=== PATIENT | male | born 1980 | race Caucasian/White ===

== ENCOUNTER 2018-10-20 19:20 | Inpatient (IN) ==
[2018-10-20] MEDS ORDERED: 0.9 % Sodium Chloride 1,000 ML IVC ONE ×2 (19:57→21:34)
[2018-10-20] MEDS ORDERED: Isovue-370 500 ML BOTTLE IVP ONE (19:58)
[2018-10-20 20:12] LABS: Basophils % 0.5 %; Eosinophils # 0.1 K/mcL (0.0-0.6); Hematocrit 40.8 % (37.5-50.1); Hemoglobin 13.3 g/dL (12.9-16.9); Immature Granulocytes % 0.2 % (0-4); Lymphocytes # 1.2 K/mcL (0.6-4.6); Lymphocytes % 18.3 %; Mean Corpuscular HGB Conc 32.6 g/dL (31.6-35.5); Mean Corpuscular Hemoglobin 28.4 pg (28.0-33.3); Mean Corpuscular Volume 87.2 fL (83.0-100.0); Monocytes # 0.4 K/mcL (0.0-1.3); Monocytes % 5.7 %; Neutrophils # 4.8 K/mcL (1.6-8.9); Platelet Count 336 K/mcL (140-400); Red Blood Count 4.68 M/mcL (4.19-5.50); Red Cell Distribution Width 13.3 % (11.5-14.5); Segmented Neutrophils % 73.3 %
[2018-10-20 20:22] LABS: Alanine Aminotransferase 110 Units/L (7-52); Albumin 3.7 g/dL (3.5-5.7); Albumin/Globulin Ratio 0.9 (1.1-2.2); Alkaline Phosphatase 163 Units/L (34-104); Aspartate Amino Transferase 107 Units/L (13-39); BUN/Creatinine Ratio 27 (6-26); Bilirubin,Direct 0.1 mg/dL (0.0-0.2); Bilirubin,Indirect 0.4 mg/dL (0.0-1.2); Bilirubin,Total 0.5 mg/dL (0.3-1.0); Blood Urea Nitrogen 16 mg/dL (6-20); Calcium 9.2 mg/dL (8.6-10.3); Carbon Dioxide 28 mEq/L (23-29); Chloride 104 mEq/L (98-107); Globulin 4.3 g/dL (2.4-3.5); Glucose 110 mg/dL (70-105); Osmolality,Calculated 290 (280-300); Potassium 3.7 mEq/L (3.5-5.1); Sodium 139 mEq/L (136-145); eGFR For Non-African Americans > 60 (> 60)
[2018-10-20 20:25] LABS: INR 1.1; Prothrombin Time 12.5 Seconds (9.4-12.1)
--- NOTE | 2018-10-20 20:41 | Emergency Department Note ---
Disposition Clinical Impression: Cellulitis Qualifiers: Site of cellulitis: extremity Site of cellulitis of extremity: lower extremity Laterality: unspecified laterality Qualified Code(s): L03.119 - Cellulitis of unspecified part of limb Disposition: Admitted As Inpatient Condition: Good General Adult HPI - General Chief complaint: ED Wound/Laceration Stated complaint: Left arm pain Time Seen by Provider: 10/20/18 19:58 Source: patient Limitations: no limitations Nursing Notes Reviewed: Yes Vital Signs Reviewed: Yes - History of Present Illness HPI Narrative: Patient presenting today for evaluation of swelling erythema and concern for infection in the extremities. Patient has known meth user. Patient states he injects into his arms. Patient has been having continued burning. Patient states he waited to come to the hospital as he is been treated bad in the past. Patient states that overall he did start to experience fevers that started today. Subjective in nature. Patient has open wounds to both arms with underlying exposed tissue. The right arm does appear to be healing with only mild purulent drainage to several aspects of the medial aspect of the forearm. The right arm has more significant cellulitis with associated erythema to the entirety of the hand. Patient will undergo sepsis workup as well as CT of the left upper extremity to rule out underlying abscess. Vancomycin has been ordered. Patient has received fluids. Patient will require admission. Pain Scale: 8 - Related Data Home Medications Medication Instructions Recorded Confirmed Buprenorphine HCl/Naloxone HCl 1 each SL BID 02/23/17 10/20/18 [Suboxone 8 mg-2 mg Sl Film] Cyclobenzaprine [Flexeril] 10 mg PO TID PRN 10/20/18 10/20/18 Omeprazole [PriLOSEC] 20 mg PO DAILY 10/20/18 10/20/18 Sertraline [Zoloft] 25 mg PO DAILY 10/20/18 10/20/18 Allergies Allergy/AdvReac Type Severity Reaction Status Date / Time No Known Allergies Allergy Verified 10/20/18 19:29 All systems ED: reviewed and negative except as stated. Review of Systems: As Per HPI Constitutional: Reports: fever, chills. Denies: weakness ENT ED: Denies: congestion Cardiovascular: Denies: chest pain Respiratory: Denies: cough, dyspnea Gastrointestinal: Denies: abdominal pain, nausea, vomiting Genitourinary: Denies: urgency, dysuria Musculoskeletal: Denies: back pain, neck pain Integumentary: Reports: other Past Medical History - Past Medical History Medical history: Reports: other Surgical history: Reports: no surgical history Psychiatric history: Reports: no psych history - Social History Smoking Status: Current every day smoker Smokeless Tobacco Status: No Alcohol use: Reports: none Drug use: Reports: cocaine, opiates, marijuana, methamphetamine, IV Drug Use, prescription drug abuse, other Physical Exam General: Well appearing, nontoxic, no acute distress Head: Normocephalic Atraumatic Eyes: PERRL, EOMI ENT: Airway patent, no stridor Neck: supple, no meningismus Chest: Lungs clear to auscultation bilateral Cardiac: Regular rate and rhythm, no murmurs, rubs or gallops Abdomen: soft, nontender, nondistended; no guarding, rebound, or tenderness to percussion Musculoskeletal: Calves symmetric, nontender. Skin: Patient with open wounds to the bilateral forearms with associated cellulitis to left hand. Sensation is intact. Radial pulse +2 bilaterally. Neuro: Alert and Oriented to person, place, and time; No obvious focal deficit. - General Limitations: no limitations General appearance: alert Course - Reevaluation(s) Reevaluation #1: Patient requesting something for pain as well as nausea. Patient received Tylenol and Zofran. Patient is in no acute distress at this time. Patient understands treatment plan. All questions answered at bedside. - Consultations Consultation #1: Discussed with hospitalist. Pt accepted for admission. Vital Signs Temperature 98.4 F 10/20/18 19:31 Pulse Rate 95 10/20/18 19:31 Respiratory Rate 20 10/20/18 19:31 Blood Pressure 136/72 10/20/18 19:31 O2 Sat by Pulse Oximetry 98 10/20/18 19:31 Temperature 97.6 F 10/21/18 10:33 Pulse Rate 60 10/21/18 10:33 Respiratory Rate 15 10/21/18 10:33 Blood Pressure 126/77 10/21/18 10:33 O2 Sat by Pulse Oximetry 97 10/21/18 10:33 Oxygen Delivery Oxygen Delivery Room Air Medical Decision Making - Lab Data Result diagrams: 10/21/18 04:49 10/21/18 07:08 Lab Results 10/20/18 10/20/18 10/20/18 Range/Units 19:47 19:47 19:47 WBC 6.5 (4.3-11.1) K/mcL RBC 4.68 (4.19-5.50) M/mcL Hgb 13.3 (12.9-16.9) g/dL Hct 40.8 (37.5-50.1) % MCV 87.2 (83.0-100.0) fL MCH 28.4 (28.0-33.3) pg MCHC 32.6 (31.6-35.5) g/dL RDW 13.3 (11.5-14.5) % Plt Count 336 (140-400) K/mcL MPV 9.0 L (9.4-12.4) fL Immature Gran % 0.2 (0-4) % Seg Neutrophils % 73.3 % Lymphocytes % 18.3 % Monocytes % 5.7 % Eosinophils % 2.0 % Basophils % 0.5 % Neutrophils # 4.8 (1.6-8.9) K/mcL Lymphocytes # 1.2 (0.6-4.6) K/mcL Monocytes # 0.4 (0.0-1.3) K/mcL Eosinophils # 0.1 (0.0-0.6) K/mcL Basophils # 0.0 (0.0-0.2) K/mcL PT 12.5 H (9.4-12.1) Seconds INR 1.1 Sodium 139 (136-145) mEq/L Potassium 3.7 (3.5-5.1) mEq/L Chloride 104 (98-107) mEq/L Carbon Dioxide 28 (23-29) mEq/L BUN 16 (6-20) mg/dL Creatinine 0.60 L (0.70-1.30) mg/dL Est GFR ( Amer) > 60 (> 60) Est GFR (Non-Af Amer) > 60 (> 60) BUN/Creatinine Ratio 27 H (6-26) Glucose 110 H (70-105) mg/dL Calculated Osmolality 290 (280-300) Lactic Acid (0.5-2.2) mmol/L Calcium 9.2 (8.6-10.3) mg/dL Total Bilirubin 0.5 (0.3-1.0) mg/dL Direct Bilirubin 0.1 (0.0-0.2) mg/dL Indirect Bilirubin 0.4 (0.0-1.2) mg/dL AST 107 H (13-39) Units/L ALT 110 H (7-52) Units/L Alkaline Phosphatase 163 H (34-104) Units/L Serum Total Protein 8.0 (6.4-8.9) g/dL Albumin 3.7 (3.5-5.7) g/dL Globulin 4.3 H (2.4-3.5) g/dL Albumin/Globulin Ratio 0.9 L (1.1-2.2) Nasal Screen MRSA (PCR) (Negative) 10/20/18 10/21/18 10/21/18 Range/Units 19:47 04:49 07:08 WBC 4.9 (4.3-11.1) K/mcL RBC 3.74 L (4.19-5.50) M/mcL Hgb 10.5 L D (12.9-16.9) g/dL Hct 32.7 L (37.5-50.1) % MCV 87.4 (83.0-100.0) fL MCH 28.1 (28.0-33.3) pg MCHC 32.1 (31.6-35.5) g/dL RDW 13.6 (11.5-14.5) % Plt Count 245 (140-400) K/mcL MPV 9.9 (9.4-12.4) fL Immature Gran % (0-4) % Seg Neutrophils % % Lymphocytes % % Monocytes % % Eosinophils % % Basophils % % Neutrophils # (1.6-8.9) K/mcL Lymphocytes # (0.6-4.6) K/mcL Monocytes # (0.0-1.3) K/mcL Eosinophils # (0.0-0.6) K/mcL Basophils # (0.0-0.2) K/mcL PT (9.4-12.1) Seconds INR Sodium 138 (136-145) mEq/L Potassium 3.5 (3.5-5.1) mEq/L Chloride 109 H (98-107) mEq/L Carbon Dioxide 25 (23-29) mEq/L BUN 14 (6-20) mg/dL Creatinine 0.53 L (0.70-1.30) mg/dL Est GFR ( Amer) > 60 (> 60) Est GFR (Non-Af Amer) > 60 (> 60) BUN/Creatinine Ratio 26 (6-26) Glucose 109 H (70-105) mg/dL Calculated Osmolality 287 (280-300) Lactic Acid 1.3 (0.5-2.2) mmol/L Calcium 8.2 L (8.6-10.3) mg/dL Total Bilirubin 0.6 (0.3-1.0) mg/dL Direct Bilirubin (0.0-0.2) mg/dL Indirect Bilirubin (0.0-1.2) mg/dL AST 74 H (13-39) Units/L ALT 76 H (7-52) Units/L Alkaline Phosphatase 113 H (34-104) Units/L Serum Total Protein 5.9 L (6.4-8.9) g/dL Albumin 2.7 L (3.5-5.7) g/dL Globulin 3.2 (2.4-3.5) g/dL Albumin/Globulin Ratio 0.8 L (1.1-2.2) Nasal Screen MRSA (PCR) (Negative) 10/21/18 Range/Units 11:10 WBC (4.3-11.1) K/mcL RBC (4.19-5.50) M/mcL Hgb (12.9-16.9) g/dL Hct (37.5-50.1) % MCV (83.0-100.0) fL MCH (28.0-33.3) pg MCHC (31.6-35.5) g/dL RDW (11.5-14.5) % Plt Count (140-400) K/mcL MPV (9.4-12.4) fL Immature Gran % (0-4) % Seg Neutrophils % % Lymphocytes % % Monocytes % % Eosinophils % % Basophils % % Neutrophils # (1.6-8.9) K/mcL Lymphocytes # (0.6-4.6) K/mcL Monocytes # (0.0-1.3) K/mcL Eosinophils # (0.0-0.6) K/mcL Basophils # (0.0-0.2) K/mcL PT (9.4-12.1) Seconds INR Sodium (136-145) mEq/L Potassium (3.5-5.1) mEq/L Chloride (98-107) mEq/L Carbon Dioxide (23-29) mEq/L BUN (6-20) mg/dL Creatinine (0.70-1.30) mg/dL Est GFR ( Amer) (> 60) Est GFR (Non-Af Amer) (> 60) BUN/Creatinine Ratio (6-26) Glucose (70-105) mg/dL Calculated Osmolality (280-300) Lactic Acid (0.5-2.2) mmol/L Calcium (8.6-10.3) mg/dL Total Bilirubin (0.3-1.0) mg/dL Direct Bilirubin (0.0-0.2) mg/dL Indirect Bilirubin (0.0-1.2) mg/dL AST (13-39) Units/L ALT (7-52) Units/L Alkaline Phosphatase (34-104) Units/L Serum Total Protein (6.4-8.9) g/dL Albumin (3.5-5.7) g/dL Globulin (2.4-3.5) g/dL Albumin/Globulin Ratio (1.1-2.2) Nasal Screen MRSA (PCR) Positive A (Negative)
[2018-10-20] MEDS ORDERED: Piperacillin/Tazobactam 3.375 GM in 0.9 % Sodium Chloride Mini Bag 100 ML IVPB ONE (21:17)
[2018-10-20] MEDS ORDERED: Ondansetron 4 MG/2 ML VIAL IVP STA (21:34)
[2018-10-20] MEDS ORDERED: Acetaminophen 325 MG TABLET PO STA (21:34)
[2018-10-21] MEDS ORDERED: Ondansetron 4 MG/2 ML VIAL IVP PRN (04:49)
[2018-10-21] MEDS ORDERED: Naloxone 0.4 MG/ML INJ IVP PRN (04:49)
--- NOTE | 2018-10-21 04:59 | Internal Med History&Physical ---
Date of Encounter: 10/21/18 Time of Encounter: 04:30 Internal Medicine - H&P: HPI Chief complaint: Left arm cellulitis Admitted From: Emergency Dept Plans for Post Hospital Care: Home History of present illness: Mr. Alvares is a 38 year old male Patient presented to the ER with swelling of his left arm. He has a long history of meth use, injecting into his arms a few weeks ago. He states that he has had burning pain in the arms since then, left worse than right. He says then his left arm became red, spreading down to his fingers. Swelling started to really worsen yesterday. Ulcerations formed, and have been draining yellow purulent discharge. He states that he has not had this before. He came to the ER after he started having feverish sensation at home. In the ER patient's vital signs were within normal limits. He was afebrile. CBC and BMP were also normal. Lactic acid was 1.3. He did have elevated liver enz ymes, AST 107, ALT 110 and Alk phos of 163. Bilirubin and INR however were witin normal limits. An upper extremity CT was ordered with contrast that showed: 1. Diffuse subcutaneous edema with areas of shallow soft tissue ulceration in the forearm, compatible with reported cellulitis. 2. No soft tissue gas. No evidence of abscess. 3. No acute osseous abnormality or evidence of osteomyelitis. He was given 2L normal saline, tylenol for pain. Blood cultures were drawn and he was started on zosyn and vancomycin. He was sent to the medical floor for further management. Upon my evaluation, patient is resting comfortably in the hospital bed in no acute distress. He denies chest pain, abdominal pain, shortness of breath, nausea, vomiting, diarrhea and constipation. He denies picking at the wounds on his arms. He says that he only recently injected methamphetamine, denies injecting into other areas of his body. He denies contributing family history, his father has a history of epilepsy, and his mother is blind. He states that besides his drug use, he is in in good health. He is a full code. Past Med Surg Social Fam HX - Past Medical History Medical history: other Additional medical history: MRSA on right leg. substance abuse Psychiatric history: depression - Past Surgical History Surgical History: no surgical history - Social History Smoking Status: Current every day smoker Packs per day: 1 Smokeless Tobacco Status: No Alcohol use: none Drug use: cocaine, opiates, marijuana, methamphetamine, IV Drug Use, prescription drug abuse, other Internal Medicine - H&P: Meds Buprenorphine HCl/Naloxone HCl [Suboxone 8 mg-2 mg Sl Film] 1 each SL BID 02/23/17 [History] Cyclobenzaprine [Flexeril] 10 mg PO TID PRN 10/20/18 [History] Omeprazole [PriLOSEC] 20 mg PO DAILY 10/20/18 [History] Sertraline [Zoloft] 25 mg PO DAILY 10/20/18 [History] Allergy/AdvReac Type Severity Reaction Status Date / Time No Known Allergies Allergy Verified 10/20/18 19:29 All Systems PM: A 10-system review of systems was performed and is negative for pertinent findings except as documented above in the HPI. - Constitutional Vitals: Temp Pulse Resp BP Pulse Ox 97.8 F 58 16 119/70 97 10/21/18 03:59 10/21/18 03:59 10/21/18 03:59 10/21/18 03:59 10/21/18 03:59 General appearance: Present: cooperative, A&O X 3, pleasant, no acute distress, answers questions appropriately Exam: - - Head Head exam: Present: normal inspection Additional comments: 2 facial wounds, no erythema, no discharge - Eye Eye exam: Present: EOMI, normal appearance - Respiratory Respiratory exam: Present: CTAB. Absent: rales, respiratory distress, rhonchi, wheezes - Cardiovascular Cardiovascular exam: Present: RRR. Absent: diastolic murmur, systolic murmur - GI/Abdominal GI/Abdominal exam: Present: normal bowel sounds, soft. Absent: tenderness - Extremities Exam Extremities exam: Present: tenderness, warm, radial pulses palpable and symmetrical. Absent: pedal edema Additional comments: Left arm has 3 wounds in mid forearm with surrounding erythema. 2 wounds 2-3cm in size, with ulceration. smaller wound more shallow. Thumb of left had has deep crack at metacarpophalangeal joint. Hand is red, pulses and sensation intact. Right arm has 3 wounds in mid forearm without surrounding erythema. Scab formation overlying wounds. - Neurological Exam Neurological exam: Present: no focal deficits, strengths equal and symetr throughout. Absent: motor sensory deficit, facial droop, speech deficit - Skin Skin exam: Present: dry, erythema, warm. Absent: intact, normal color Internal Med - H&P Results - Labs CBC & Chem 7: 10/20/18 19:47 10/20/18 19:47 Labs: Short CBC 10/20/18 Range/Units 19:47 WBC 6.5 (4.3-11.1) K/mcL Hgb 13.3 (12.9-16.9) g/dL Hct 40.8 (37.5-50.1) % Plt Count 336 (140-400) K/mcL Neutrophils # 4.8 (1.6-8.9) K/mcL BMP 10/20/18 19:47 Sodium 139 Potassium 3.7 Chloride 104 Carbon Dioxide 28 BUN 16 Creatinine 0.60 L Glucose 110 H Calcium 9.2 Liver Function 10/20/18 Range/Units 19:47 Total Bilirubin 0.5 (0.3-1.0) mg/dL Direct Bilirubin 0.1 (0.0-0.2) mg/dL AST 107 H (13-39) Units/L ALT 110 H (7-52) Units/L Alkaline Phosphatase 163 H (34-104) Units/L Albumin 3.7 (3.5-5.7) g/dL - Impressions ITS Impressions Upper Extremity CT 10/20/18 19:58 IMPRESSION: 1. Diffuse subcutaneous edema with areas of shallow soft tissue ulceration in the forearm, compatible with reported cellulitis. 2. No soft tissue gas. No evidence of abscess. 3. No acute osseous abnormality or evidence of osteomyelitis. D/ / 10/20/2018 21:17:46 Noy Murillo / rolan Interpreting Provider: Noy Murillo - Assessment and Plan (1) Cellulitis of left arm Current Visit: Yes Status: Acute Assessment and plan: As seen on left arm CT. Obvious ulcerations and redness of the mid arm. Patient's pulses and sensation is intact, but concern for development of compartment syndrome. Patient already started on antibiotics in the ER. No sign of osteo or gas formation on imaging. Continue vancomycin and zosyn Follow up blood cultures Wound care consultation Consider orthopedic surgery consult if concern for compartment syndrome (2) IV drug user Current Visit: Yes Status: Acute Assessment and plan: History of meth use. Caution use of narcotic pain medication. Patient ok with tylenol thus far. (3) Current nicotine use Current Visit: Yes Status: Acute Assessment and plan: Nicotine patch (4) Elevated liver enzymes Current Visit: Yes Status: Acute Assessment and plan: Unknown etiology, other liver enzymes not elevated. Repeat labs in the morning Consider hepatic panel if continues to be elevated (5) DVT prophylaxis Current Visit: Yes Status: Acute Assessment and plan: SCDs - Time Spent With Patient Total time spent is greater than 50% in coordination of care (as documented) at patient's floor/unit and/or counseling patient: Greater than 35 minutes
[2018-10-21] MEDS: 0.9 % Sodium Chloride 1,000 ML IVC SCH ×2 (05:02→16:39)
[2018-10-21] MEDS: Acetaminophen 325 MG TABLET PO PRN ×2 (05:03→20:22)
[2018-10-21 07:55] LABS: Hematocrit 32.7 % (37.5-50.1); Mean Corpuscular HGB Conc 32.1 g/dL (31.6-35.5); Mean Corpuscular Hemoglobin 28.1 pg (28.0-33.3); Mean Corpuscular Volume 87.4 fL (83.0-100.0); Mean Platelet Volume 9.9 fL (9.4-12.4); Platelet Count 245 K/mcL (140-400); Red Blood Count 3.74 M/mcL (4.19-5.50); Red Cell Distribution Width 13.6 % (11.5-14.5)
[2018-10-21 07:57] LABS: Hemoglobin 10.5 g/dL (12.9-16.9)
[2018-10-21 08:06] LABS: Alanine Aminotransferase 76 Units/L (7-52); Albumin 2.7 g/dL (3.5-5.7); Albumin/Globulin Ratio 0.8 (1.1-2.2); Alkaline Phosphatase 113 Units/L (34-104); Aspartate Amino Transferase 74 Units/L (13-39); BUN/Creatinine Ratio 26 (6-26); Bilirubin,Total 0.6 mg/dL (0.3-1.0); Blood Urea Nitrogen 14 mg/dL (6-20); Calcium 8.2 mg/dL (8.6-10.3); Carbon Dioxide 25 mEq/L (23-29); Chloride 109 mEq/L (98-107); Globulin 3.2 g/dL (2.4-3.5); Glucose 109 mg/dL (70-105); Osmolality,Calculated 287 (280-300); Potassium 3.5 mEq/L (3.5-5.1); Sodium 138 mEq/L (136-145); Total Protein 5.9 g/dL (6.4-8.9); eGFR For Non-African Americans > 60 (> 60)
[2018-10-21] MEDS ORDERED: Ibuprofen 400 MG TABLET PO PRN (08:10)
[2018-10-21] MEDS: Piperacillin/Tazobactam 3.375 GM in 0.9 % Sodium Chloride Mini Bag 100 ML IVPB SCH ×3 (08:18→23:07)
[2018-10-21] MEDS: Nicotine 21 MG PATCH.TD24 TD SCH (08:19)
--- NOTE | 2018-10-21 08:52 | Internal Med Progress Note ---
Hospitalist Progress Note - Encounter Date of Encounter: 10/21/18 Time of Encounter: 08:52 - Subjective Interval History: Reason seen and examined this morning at bedside. No acute overnight events. Remains afebrile. Denies significant change in pain in the left forearm. Denies any lightheadedness dizziness abdominal pain nausea vomiting and diarrhe a. - Exam Vitals: Temp Pulse Resp BP Pulse Ox 98.2 F 65 15 110/65 96 10/21/18 06:30 10/21/18 06:30 10/21/18 06:30 10/21/18 06:30 10/21/18 06:30 Exam: General: In no acute distress. Obese Respiratory exam: CTAB. no accessory muscle use, rales, rhonchi, wheezes Cardiovascular exam: RRR, +S1, +S2. no murmur, gallop, rubs. GI/Abdominal exam: Non-tender, Non-distended, normal bowel sounds, soft, no peritoneal signs. Extremities exam: no pedal edema, pulses palpable in b/l lower extremities. no calf tenderness Neurological exam: CN II-XII intact, AO X3, no focal deficits. Skin exam: Lt forearm 2 open wound, 1x2 cm nondraining without fluctuance, with erythema and tenderness. swelling also present on hand but intact sensation and normal capillary refill. able to move hand. Rt forearm with also scabs which does not appear infected. - Summary of Assessment and Plan Summary of Assessment and Plan: Assessment Cellulitis of left arm IVDU methamphetamine Elevated liver enzymes Nicotine use Plan - CT without abscess or ostomyelitis. - c/w empiric vancomycin and zosyn. f/u blood cultures - f/u wound care - Neurovascular intact. low suspicion of compartment syndrome. elevate hand. If worsens will call surgery. - f/u hepatitis panel - add ibuprofen for pain - nicotin patch - Time Spent with Patient Total time spent is greater than 50% in coordination of care (as documented) at patient's floor/unit and/or counseling patient: Internal Medicine: Result - Labs CBC & Chem 7: 10/21/18 04:49 10/21/18 07:08 Labs: Short CBC 10/20/18 10/21/18 Range/Units 19:47 04:49 WBC 6.5 4.9 (4.3-11.1) K/mcL Hgb 13.3 10.5 L D (12.9-16.9) g/dL Hct 40.8 32.7 L (37.5-50.1) % Plt Count 336 245 (140-400) K/mcL Neutrophils # 4.8 (1.6-8.9) K/mcL BMP 10/20/18 10/21/18 19:47 07:08 Sodium 139 138 Potassium 3.7 3.5 Chloride 104 109 H Carbon Dioxide 28 25 BUN 16 14 Creatinine 0.60 L 0.53 L Glucose 110 H 109 H Calcium 9.2 8.2 L Liver Function 10/20/18 10/21/18 Range/Units 19:47 07:08 Total Bilirubin 0.5 0.6 (0.3-1.0) mg/dL Direct Bilirubin 0.1 (0.0-0.2) mg/dL AST 107 H 74 H (13-39) Units/L ALT 110 H 76 H (7-52) Units/L Alkaline Phosphatase 163 H 113 H (34-104) Units/L Albumin 3.7 2.7 L (3.5-5.7) g/dL - ABG Interpretation ABG results: PT/INR, D-dimer PT 12.5 Seconds (9.4-12.1) H 10/20/18 19:47 - Impressions Impressions Upper Extremity CT 10/20/18 19:58 IMPRESSION: 1. Diffuse subcutaneous edema with areas of shallow soft tissue ulceration in the forearm, compatible with reported cellulitis. 2. No soft tissue gas. No evidence of abscess. 3. No acute osseous abnormality or evidence of osteomyelitis. D/ / 10/20/2018 21:17:46 Noy Murillo / rolan Interpreting Provider: Noy Murillo Consult Discharge Plan - Plan Referrals: Jennifer Bob [Primary Care Provider] -
[2018-10-21] MEDS: Ibuprofen 400 MG TABLET PO SCH ×3 (11:08→23:07)
--- NOTE | 2018-10-21 11:15 | Electrocardiograph Report ---
[address] [address] Test Date: 2018-10-20 Pat Name: Raulito Alvares Department: [id number] Room: 3A Gender: M [employer]: : [id number] Requested By: Mu Dove Order Number: [id number] Reading MD: Sulma Arthur Measurements Intervals [place] Rate: 81 P: 59 IN: 145 QRS: 53 QRSD: 90 T: 30 QT: 376 QTc: 437 Interpretive Statements Sinus rhythm Electronically Signed On 10-21-2018 11:13:29 EDT by Sulma Arthur
[2018-10-21 19:07] LABS: Amphetamine Screen,Urine Positive ng/mL (Cutoff=1000); Barbiturate Screen,Urine Negative ng/mL (Cutoff=200); Benzodiazepines Screen,Urine Negative ng/mL (Cutoff=200); Cannabinoid Screen,Urine Negative ng/mL (Cutoff = 50); Cocaine Screen,Urine Negative ng/mL (Cutoff= 300); Opiate Screen,Urine Positive ng/mL (Cutoff=300); Phencyclidine Screen,Urine Negative ng/mL (Cutoff=25)
[2018-10-22 03:56] LABS: Basophils % 0.5 %; Eosinophils # 0.3 K/mcL (0.0-0.6); Eosinophils % 4.3 %; Hematocrit 35.7 % (37.5-50.1); Hemoglobin 11.9 g/dL (12.9-16.9); Immature Granulocytes % 0.2 % (0-4); Lymphocytes # 2.1 K/mcL (0.6-4.6); Lymphocytes % 36.6 %; Mean Corpuscular HGB Conc 33.3 g/dL (31.6-35.5); Mean Corpuscular Hemoglobin 28.6 pg (28.0-33.3); Mean Corpuscular Volume 85.8 fL (83.0-100.0); Mean Platelet Volume 10.1 fL (9.4-12.4); Monocytes # 0.5 K/mcL (0.0-1.3); Monocytes % 8.9 %; Neutrophils # 2.9 K/mcL (1.6-8.9); Platelet Count 250 K/mcL (140-400); Red Blood Count 4.16 M/mcL (4.19-5.50); Red Cell Distribution Width 13.1 % (11.5-14.5); Segmented Neutrophils % 49.5 %
[2018-10-22 04:12] LABS: Alanine Aminotransferase 77 Units/L (7-52); Albumin 2.7 g/dL (3.5-5.7); Albumin/Globulin Ratio 0.8 (1.1-2.2); Alkaline Phosphatase 115 Units/L (34-104); Aspartate Amino Transferase 75 Units/L (13-39); BUN/Creatinine Ratio 24 (6-26); Bilirubin,Total 0.4 mg/dL (0.3-1.0); Blood Urea Nitrogen 13 mg/dL (6-20); Calcium 8.4 mg/dL (8.6-10.3); Carbon Dioxide 23 mEq/L (23-29); Chloride 107 mEq/L (98-107); Globulin 3.6 g/dL (2.4-3.5); Glucose 103 mg/dL (70-105); Osmolality,Calculated 282 (280-300); Potassium 4.1 mEq/L (3.5-5.1); Sodium 136 mEq/L (136-145); Total Protein 6.3 g/dL (6.4-8.9); eGFR For Non-African Americans > 60 (> 60)
[2018-10-22 04:34] LABS: Hepatitis B Surface Antigen Nonreactive (Nonreactive)
[2018-10-22] MEDS: Ibuprofen 400 MG TABLET PO SCH ×4 (05:00→23:53)
[2018-10-22 05:03] LABS: Hepatitis B Core IgM Nonreactive (Nonreactive)
[2018-10-22 06:23] LABS: Hepatitis A Antibody IgM Reactive (Nonreactive); Hepatitis C Virus Antibody Reactive (Nonreactive)
[2018-10-22] MEDS ORDERED: *HR* Buprenorphine HCl 2 MG SUBLINGUAL TABLET SL SCH ×2 (10:00→21:00)
[2018-10-22] MEDS: Nicotine 21 MG PATCH.TD24 TD SCH (10:02)
[2018-10-22] MEDS: Acetaminophen 325 MG TABLET PO PRN (10:02)
[2018-10-22] MEDS: Piperacillin/Tazobactam 3.375 GM in 0.9 % Sodium Chloride Mini Bag 100 ML IVPB SCH ×2 (10:02→16:50)
--- NOTE | 2018-10-22 11:01 | Internal Med Progress Note ---
Hospitalist Progress Note - Encounter Date of Encounter: 10/22/18 Time of Encounter: 08:26 - Subjective Interval History: Patient seen and examined this morning at bedside. No acute overnight events. Hand swelling and redness improved. Pain improved as well her started with some pain on movement of his thumb. Denies any fevers chills nausea vomiting or diarrhea. Afebrile overnight and hemodynamically stable. - Exam Vitals: Temp Pulse Resp BP Pulse Ox 97.5 F L 60 15 159/90 97 10/22/18 10:16 10/22/18 10:16 10/22/18 10:16 10/22/18 10:16 10/22/18 10:16 Exam: General: In no acute distress. Obese Respiratory exam: CTAB. no accessory muscle use, rales, rhonchi, wheezes Cardiovascular exam: RRR, +S1, +S2. no murmur, gallop, rubs. GI/Abdominal exam: Non-tender, Non-distended, normal bowel sounds, soft, no peritoneal signs. Extremities exam: no pedal edema, pulses palpable in b/l lower extremities. no calf tenderness Neurological exam: CN II-XII intact, AO X3, no focal deficits. Skin exam: Lt forearm 2 open wound, 1x2 cm nondraining without fluctuance, with erythema and tenderness. swelling slightly decreased. intact sensation and normal capillary refill. Rt forearm with also scabs which does not appear infected. Track ley noted on left hand dorsum. - Summary of Assessment and Plan Summary of Assessment and Plan: Assessment Cellulitis of left arm active IVDU methamphetamine and heroin Acute Hepatitis A Hepatitis C Nicotine use MRSA screen positive Plan - CT of Lt arm without abscess or ostomyelitis. - c/w empiric vancomycin and zosyn. f/u blood cultures. NGTD - f/u wound care. Apply betadine dressing for now - Neurovascular intact. low suspicion of compartment syndrome. elevate hand. If worsening will call surgery. - hepatitis panel with hepatitis A and Hepatitis C. Known h/o hepatitis C. f/u RNA levels and HIV - c/w ibuprofen and acetaminophen for pain. Reusme subutex. - nicotin patch - Time Spent with Patient Total time spent is greater than 50% in coordination of care (as documented) at patient's floor/unit and/or counseling patient: Internal Medicine: Result - Labs CBC & Chem 7: 05/05/19 03:27 10/22/18 03:27 Labs: Short CBC 10/22/18 Range/Units 03:27 WBC 5.8 (4.3-11.1) K/mcL Hgb 11.9 L (12.9-16.9) g/dL Hct 35.7 L (37.5-50.1) % Plt Count 250 (140-400) K/mcL Neutrophils # 2.9 (1.6-8.9) K/mcL BMP 10/22/18 03:27 Sodium 136 Potassium 4.1 Chloride 107 Carbon Dioxide 23 BUN 13 Creatinine 0.54 L Glucose 103 Calcium 8.4 L Liver Function 10/22/18 Range/Units 03:27 Total Bilirubin 0.4 (0.3-1.0) mg/dL AST 75 H (13-39) Units/L ALT 77 H (7-52) Units/L Alkaline Phosphatase 115 H (34-104) Units/L Albumin 2.7 L (3.5-5.7) g/dL - ABG Interpretation ABG results: PT/INR, D-dimer PT 12.5 Seconds (9.4-12.1) H 10/20/18 19:47 Consult Discharge Plan - Plan Referrals: Jennifer Bob [Primary Care Provider] -
[2018-10-22] MEDS: *HR* Buprenorphine HCl 8 MG TAB.SUBL SL SCH ×2 (11:14→20:02)
[2018-10-23] MEDS: Piperacillin/Tazobactam 3.375 GM in 0.9 % Sodium Chloride Mini Bag 100 ML IVPB SCH ×3 (02:17→17:48)
[2018-10-23] MEDS: Ibuprofen 400 MG TABLET PO SCH ×3 (05:22→17:49)
[2018-10-23] MEDS: *HR* Buprenorphine HCl 8 MG TAB.SUBL SL SCH ×2 (08:20→21:45)
[2018-10-23] MEDS: Nicotine 21 MG PATCH.TD24 TD SCH (08:21)
--- NOTE | 2018-10-23 09:48 | Internal Med Progress Note ---
Hospitalist Progress Note - Encounter Date of Encounter: 10/23/18 Time of Encounter: 09:48 - Subjective Interval History: Decision seen and examined this morning and resume. No acute overnight events. Denies new complaints. Denies any fevers chills nausea vomiting or diarrhea. Afebrile and hemodynamically stable. Pain improved significantly as well as swelling and redness. - Exam Vitals: Temp Pulse Resp BP Pulse Ox 98.0 F 68 15 148/84 98 10/23/18 04:28 10/23/18 04:28 10/23/18 04:28 10/23/18 04:28 10/23/18 04:28 Exam: General: In no acute distress. Obese Respiratory exam: CTAB. no accessory muscle use, rales, rhonchi, wheezes Cardiovascular exam: RRR, +S1, +S2. no murmur, gallop, rubs. GI/Abdominal exam: Non-tender, Non-distended, normal bowel sounds, soft, no peritoneal signs. Extremities exam: no pedal edema, pulses palpable in b/l lower extremities. no calf tenderness Neurological exam: CN II-XII intact, AO X3, no focal deficits. Skin exam: Lt swellin, redness significantly decreased. No fluctuance noted. intact sensation and normal capillary refill. Track ley noted on left hand dorsum. - Summary of Assessment and Plan Summary of Assessment and Plan: Assessment Cellulitis of left arm active IVDU methamphetamine and heroin Acute Hepatitis A Hepatitis C Nicotine use MRSA screen positive Plan - CT of Lt arm without abscess or ostomyelitis. Cellulitis significantly improved. - c/w empiric vancomycin and zosyn IV for one more day. f/u blood cultures. NGTD - c/w wound care - Neurovascular intact. - hepatitis panel with hepatitis A and Hepatitis C. Known h/o hepatitis C. f/u RNA levels and HIV - c/w subutex, ibuprofen and acetaminophen for pain. - nicotin patch - SW for resource to quite drug use and smoking. Discussed in details with patient again about risk of continued use - Plan for DC tomorrow if culture remain negative - Time Spent with Patient Total time spent is greater than 50% in coordination of care (as documented) at patient's floor/unit and/or counseling patient: Internal Medicine: Result - Labs CBC & Chem 7: 10/22/18 03:27 10/22/18 03:27 - ABG Interpretation ABG results: PT/INR, D-dimer PT 12.5 Seconds (9.4-12.1) H 10/20/18 19:47 Consult Discharge Plan - Plan Referrals: Jennifer Bob [Primary Care Provider] -
[2018-10-23] MEDS ORDERED: Silver Sulfadiazine 50 GM TUBE TP SCH (16:15)
[2018-10-24] MEDS: Ibuprofen 400 MG TABLET PO SCH ×3 (00:53→11:48)
[2018-10-24] MEDS: Piperacillin/Tazobactam 3.375 GM in 0.9 % Sodium Chloride Mini Bag 100 ML IVPB SCH ×2 (00:53→08:21)
[2018-10-24] MEDS: *HR* Buprenorphine HCl 8 MG TAB.SUBL SL SCH (08:21)
[2018-10-24] MEDS: Nicotine 21 MG PATCH.TD24 TD SCH (08:21)
[2018-10-24 11:13] VITALS: BP 137/86
--- NOTE | 2018-10-24 12:09 | Discharge Summary ---
- NOTES TO OUTPATIENT PROVIDER Notes to Outpatient Provider: Patient will be discharged with antibiotics to finish 10 day course. Patient will need gastroenterology follow-up on discharge regarding hepatitis C. Patient will need supportive for quitting IV drug use. We will need to follow within a week with PCP. Orders not resulted at time of discharge: Pending orders 10/20/18 19:47 Culture,Blood [BC] Stat 10/24/18 05:21 HIV-1&2 Antibody & p24 Ag Routine Date of Encounter: 10/24/18 Time of Encounter: 12:09 - Discharge Diagnosis (1) Acute hepatitis A Priority: Secondary Status: Acute (2) Hepatitis C Priority: Secondary Status: Acute Qualifiers: Qualified Code(s): B19.20 - Unspecified viral hepatitis C without hepatic coma (3) Methamphetamine abuse Priority: Secondary Status: Acute (4) Heroin abuse Priority: Secondary Status: Acute (5) Cellulitis of left arm Priority: Primary Status: Acute (6) Current nicotine use Priority: Secondary Status: Acute (7) DVT prophylaxis Priority: Secondary Status: Acute (8) IV drug user Priority: Secondary Status: Acute Hospital course: Mr. Alvares is a 38 year old male with past medical history of IV drug use came in with complain of left arm swelling redness and pain found to have cellulitis associated with IV drug use with needle track ley. Patient was started on broad-spectrum antibiotics vancomycin and Zosyn. CT did not show any evidence of abscess or osteomyelitis. Blood cultures were obtained. Blood cultures remained obtained. Patient was MRSA screen positive. Patient also had elevated LFTs. Hepatitis panel came positive for acute hepatitis A. discussed with patient about hygiene to prevent spread of hepatitis A. Also positive for hepatitis c which patient new had he had. Patient swelling redness significantly improved. Patient was stable to be discharged to finish 10 day course of antibiotics with Bactrim and Omnicef to finish her rest of the course. She will need to follow with GI for hepatitis C. Discharge discussed with: patient, nurse - Time Spent with Patient Total time spent providing and/or coordinating discharge services: Time spent: Greater than 30 minutes (40) - Discharge Medications Prescriptions: New Sulfamethoxazole/Trimeth DS [Bactrim DS] 1 each PO BID 6 Days #12 tablet Cefdinir [Omnicef] 300 mg PO BID 6 Days #12 capsule Continued Buprenorphine HCl/Naloxone HCl [Suboxone 8 mg-2 mg Sl Film] 1 each SL BID Sertraline [Zoloft] 25 mg PO DAILY Cyclobenzaprine [Flexeril] 10 mg PO TID PRN PRN Reason: Muscle Spasm Omeprazole [PriLOSEC] 20 mg PO DAILY Home Medications: Buprenorphine HCl/Naloxone HCl [Suboxone 8 mg-2 mg Sl Film] 1 each SL BID 02/23/17 [History] Cyclobenzaprine [Flexeril] 10 mg PO TID PRN 10/20/18 [History] Omeprazole [PriLOSEC] 20 mg PO DAILY 10/20/18 [History] Sertraline [Zoloft] 25 mg PO DAILY 10/20/18 [History] Cefdinir [Omnicef] 300 mg PO BID 6 Days #12 capsule 10/24/18 [Rx] Sulfamethoxazole/Trimeth DS [Bactrim DS] 1 each PO BID 6 Days #12 tablet 10/24/18 [Rx] Allergies/Adverse Reactions: Allergy/AdvReac Type Severity Reaction Status Date / Time No Known Allergies Allergy Verified 10/20/18 19:29 Date of admission: 10/21/18 11:31 Primary care physician: Jennifer Bob Consults: 10/21/18 04:53 Consult to Wound Care [CONS] Routine Reason for Consult: Patient has wounds on left arm from meth injection. Purulent discharge. Call Completed: No 10/21/18 09:08 Consult to Leather Staker [CONS] Routine Reason for SW Consult: IVDU Discharging clinician: Azeem [place] - Constitutional Vitals: Temp Pulse Resp BP Pulse Ox 97.6 F 63 16 137/86 98 10/24/18 11:10 10/24/18 11:10 10/24/18 11:10 10/24/18 11:10 10/24/18 11:10 Exam: General: In no acute distress. Obese Respiratory exam: CTAB. no accessory muscle use, rales, rhonchi, wheezes Cardiovascular exam: RRR, +S1, +S2. no murmur, gallop, rubs. GI/Abdominal exam: Non-tender, Non-distended, normal bowel sounds, soft, no peritoneal signs. Extremities exam: no pedal edema, pulses palpable in b/l lower extremities. no calf tenderness Neurological exam: CN II-XII intact, AO X3, no focal deficits. Skin exam: Lt swellin, redness almost resolved. No fluctuance noted. intact sensation and normal capillary refill. Track ley noted on left hand dorsum. - Patient Status Disposition: Home, Self-Care Condition: Good - Discharge Instructions Follow Up With: Jennifer Bob [Primary Care Provider] - - Diet and Activity Activity: increase activity as tolerated
[2018-10-24] MEDS ORDERED: Aminoglycoside Consult 1 EACH MC ONE (14:01)
== END 2018-10-24 14:02 | disposition home or self-care (01) | DRG 383 ==
LOC: 3ANU 19:20 → EMEROOARM 19:20 → SUATTDRO 22:10 → 3ANU 22:42
PROVIDERS: ADMIT Family Medicine; ATTEND Internal Medicine

== ENCOUNTER 2019-01-15 15:33 | Inpatient (IN) ==
[2019-01-15] MEDS ORDERED: 0.9 % Sodium Chloride 1,000 ML IVC ONE (15:48)
[2019-01-15] MEDS ORDERED: Isovue-370 500 ML BOTTLE IVP ONE (16:20)
[2019-01-15] MEDS ORDERED: Ibuprofen 600 MG TABLET PO ONE (16:24)
[2019-01-15] MEDS ORDERED: Acetaminophen 325 MG TABLET PO ONE (16:24)
[2019-01-15 16:30] LABS: Basophils # 0.1 K/mcL (0.0-0.2); Basophils % 0.7 %; Eosinophils % 0.6 %; Hematocrit 41.3 % (37.5-50.1); Hemoglobin 13.6 g/dL (12.9-16.9); Immature Granulocytes % 0.1 % (0-4); Lymphocytes # 2.1 K/mcL (0.6-4.6); Lymphocytes % 30.6 %; Mean Corpuscular HGB Conc 32.9 g/dL (31.6-35.5); Mean Corpuscular Hemoglobin 28.1 pg (28.0-33.3); Mean Corpuscular Volume 85.3 fL (83.0-100.0); Mean Platelet Volume 8.7 fL (9.4-12.4); Monocytes # 0.5 K/mcL (0.0-1.3); Monocytes % 6.7 %; Neutrophils # 4.2 K/mcL (1.6-8.9); Platelet Count 372 K/mcL (140-400); Red Blood Count 4.84 M/mcL (4.19-5.50); Red Cell Distribution Width 13.6 % (11.5-14.5); Segmented Neutrophils % 61.3 %; White Blood Count 6.8 K/mcL (4.3-11.1)
[2019-01-15 16:37] LABS: INR 1.1; Prothrombin Time 12.6 Seconds (9.4-12.1)
[2019-01-15 16:50] LABS: Alanine Aminotransferase 36 Units/L (7-52); Albumin 3.6 g/dL (3.5-5.7); Albumin/Globulin Ratio 0.7 (1.1-2.2); Alkaline Phosphatase 117 Units/L (34-104); Aspartate Amino Transferase 36 Units/L (13-39); BUN/Creatinine Ratio 23 (6-26); Bilirubin,Direct 0.1 mg/dL (0.0-0.2); Bilirubin,Indirect 0.5 mg/dL (0.0-1.2); Bilirubin,Total 0.6 mg/dL (0.3-1.0); Blood Urea Nitrogen 15 mg/dL (6-20); Calcium 9.7 mg/dL (8.6-10.3); Carbon Dioxide 25 mEq/L (23-29); Chloride 102 mEq/L (98-107); Glucose 150 mg/dL (70-105); Osmolality,Calculated 282 (280-300); Potassium 3.7 mEq/L (3.5-5.1); Sodium 134 mEq/L (136-145); Total Protein 8.6 g/dL (6.4-8.9); eGFR For African Americans > 60 (> 60); eGFR For Non-African Americans > 60 (> 60)
--- NOTE | 2019-01-15 16:56 | Emergency Department Note ---
Disposition Clinical Impression: Abscess, IV drug abuse Cellulitis Qualifiers: Site of cellulitis: extremity Site of cellulitis of extremity: upper extremity Laterality: unspecified laterality Qualified Code(s): L03.119 - Cellulitis of unspecified part of limb Disposition: Admitted As Inpatient Referrals: Jennifer Bob [Primary Care Provider] - Forms: ED Satisfaction Letter Time of Disposition: 20:40 Extremity Problem HPI - General Chief complaint: ED Extremity Problem,Nontraumatic Stated complaint: infection in arms Time Seen by Provider: 01/15/19 15:38 Source: patient Mode of arrival: ambulatory Limitations: no limitations Nursing Notes Reviewed: Yes Vital Signs Reviewed: Yes - History of Present Illness HPI Narrative: 38M with past medical history of IV drug abuse presents to the emergency department with concern for infection in both of his arms. He has been injecting IV drugs over the past several days and over the last 2 days he noticed worsening infection in his bilateral lower arms around the sites where he injected. He is also been feeling "terrible" with subjective fevers and chills, generalized fatigue, nausea without vomiting. He has been admitted for bacteremia before. He has never had endocarditis to his knowledge. He was recently discharged with Bactrim and Keflex for an arm infection when he broke his leg approximately 3 weeks ago. That infection had not fully healed and then suddenly worsened. His left arm is exquisitely tender and he states this is the one that looks like it was infected first. Pain Scale: 8 - Related Data Home Medications Medication Instructions Recorded Confirmed Buprenorphine HCl/Naloxone HCl 2 each SL BID 01/15/19 01/15/19 [Suboxone 8 mg-2 mg Sl Film] Ibuprofen [Ibu] 600 mg PO Q6HR PRN 01/15/19 01/15/19 Allergies Allergy/AdvReac Type Severity Reaction Status Date / Time No Known Allergies Allergy Verified 12/22/18 19:26 All systems ED: reviewed and negative except as stated. Review of Systems: As Per HPI Constitutional: Reports: fever, chills Cardiovascular: Denies: chest pain, palpitations, dyspnea on exertion Respiratory: Denies: cough, dyspnea, wheezes Gastrointestinal: Denies: abdominal pain, nausea, vomiting Genitourinary: Denies: dysuria, hematuria Musculoskeletal: Denies: back pain, neck pain Integumentary: Reports: other (bilateral forearm cellulitis) Neurological: Denies: headache Endocrine: Reports: fatigue Past Medical History - Past Medical History Attestation: Yes The following information was validated with the patient. Source: patient Medical history: Reports: IV drug use, other Surgical history: Reports: no surgical history Psychiatric history: Reports: depression - Social History Smoking Status: Current every day smoker Smokeless Tobacco Status: No Alcohol use: Reports: none Drug use: Reports: cocaine, opiates, marijuana, methamphetamine, IV Drug Use, prescription drug abuse, other Physical Exam - General Limitations: no limitations General appearance: alert, in no apparent distress - Head Head exam: atraumatic, normocephalic - Eye Eye exam: Present: normal appearance, PERRL, EOMI - ENT ENT exam: normal exam, normal oropharynx - Neck Neck exam: Present: normal inspection. Absent: tenderness - Chest Chest inspection: Present: normal inspection. Absent: tenderness, rash - Respiratory Respiratory exam: Present: normal lung sounds bilaterally. Absent: wheezes - Cardiovascular Cardiovascular exam: Present: regular rate, normal rhythm - Abdominal Exam Abdominal exam: Present: soft, Non-Tender. Absent: distention, guarding, rebound, rigidity - Extremities Exam Extremities exam: Present: other (Bilateral forearm cellulitis with abscess on left forearm with active drainage. Left forearm is more tender to palpation than right with swelling. No crepitance palpated. BUE warm to touch.) - Neurological Exam Neurological exam: Present: alert, oriented X3 - Psychiatric Psychiatric exam: Present: normal affect, normal mood - Skin Skin exam: Present: warm, dry, intact Course Vital Signs Temperature 98.2 F 01/15/19 15:34 Pulse Rate 84 01/15/19 15:34 Respiratory Rate 16 01/15/19 15:34 Blood Pressure 148/95 01/15/19 15:34 O2 Sat by Pulse Oximetry 99 01/15/19 15:34 Temperature 98.2 F 01/15/19 15:46 Pulse Rate 79 01/15/19 20:07 Respiratory Rate 16 01/15/19 20:07 Blood Pressure 154/86 01/15/19 20:07 O2 Sat by Pulse Oximetry 98 01/15/19 20:07 Oxygen Delivery Oxygen Delivery Room Air Extremity Problem, Nontraumati - MDM Narrative Medical decision making narrative: Pt presents with BUE cellulitis with abscess formation. We will obtain basic labs, lactic, ct scan of the arms, and treat the patient with IV antibiotics. Blood cultures will be drawn for possible bacteremia due to IV drug use. 1709 - Pts white blood count, lactic acid, and sodium are all within normal limits. Awaiting CT imaging and then plan to admit for IV antibiotics. 1939 - patient's chest x-ray within normal limits. Bilateral upper show any CAT scan resulted with retained metal foreign bodies and developing abscesses without signs of necrotizing fasciitis or osteomyelitis. Hospitalist has been paged for admission at this time. 2039 - hospitalist is agreeable with admission of the patient this time. We will start him on vancomycin and Zosyn. Surgery has been consult for potential abscess drainage as well. - Medical Records Medical records reviewed: Yes I reviewed the patient's medical records. - Lab Data Lab results reviewed: Yes I reviewed the patient's lab results. Result diagrams: 01/15/19 16:11 01/15/19 16:11 Lab Results 01/15/19 01/15/19 01/15/19 Range/Units 16:11 16:11 16:11 WBC 6.8 (4.3-11.1) K/mcL RBC 4.84 (4.19-5.50) M/mcL Hgb 13.6 (12.9-16.9) g/dL Hct 41.3 (37.5-50.1) % MCV 85.3 (83.0-100.0) fL MCH 28.1 (28.0-33.3) pg MCHC 32.9 (31.6-35.5) g/dL RDW 13.6 (11.5-14.5) % Plt Count 372 (140-400) K/mcL MPV 8.7 L (9.4-12.4) fL Immature Gran % 0.1 (0-4) % Seg Neutrophils % 61.3 % Lymphocytes % 30.6 % Monocytes % 6.7 % Eosinophils % 0.6 % Basophils % 0.7 % Neutrophils # 4.2 (1.6-8.9) K/mcL Lymphocytes # 2.1 (0.6-4.6) K/mcL Monocytes # 0.5 (0.0-1.3) K/mcL Eosinophils # 0.0 (0.0-0.6) K/mcL Basophils # 0.1 (0.0-0.2) K/mcL PT 12.6 H (9.4-12.1) Seconds INR 1.1 Sodium 134 L (136-145) mEq/L Potassium 3.7 (3.5-5.1) mEq/L Chloride 102 (98-107) mEq/L Carbon Dioxide 25 (23-29) mEq/L BUN 15 (6-20) mg/dL Creatinine 0.64 L (0.70-1.30) mg/dL Est GFR ( Amer) > 60 (> 60) Est GFR (Non-Af Amer) > 60 (> 60) BUN/Creatinine Ratio 23 (6-26) Glucose 150 H (70-105) mg/dL Calculated Osmolality 282 (280-300) Lactic Acid (0.5-2.2) mmol/L Calcium 9.7 (8.6-10.3) mg/dL Total Bilirubin 0.6 (0.3-1.0) mg/dL Direct Bilirubin 0.1 (0.0-0.2) mg/dL Indirect Bilirubin 0.5 (0.0-1.2) mg/dL AST 36 (13-39) Units/L ALT 36 (7-52) Units/L Alkaline Phosphatase 117 H (34-104) Units/L Serum Total Protein 8.6 (6.4-8.9) g/dL Albumin 3.6 (3.5-5.7) g/dL Globulin 5.0 H (2.4-3.5) g/dL Albumin/Globulin Ratio 0.7 L (1.1-2.2) 01/15/19 Range/Units 16:11 WBC (4.3-11.1) K/mcL RBC (4.19-5.50) M/mcL Hgb (12.9-16.9) g/dL Hct (37.5-50.1) % MCV (83.0-100.0) fL MCH (28.0-33.3) pg MCHC (31.6-35.5) g/dL RDW (11.5-14.5) % Plt Count (140-400) K/mcL MPV (9.4-12.4) fL Immature Gran % (0-4) % Seg Neutrophils % % Lymphocytes % % Monocytes % % Eosinophils % % Basophils % % Neutrophils # (1.6-8.9) K/mcL Lymphocytes # (0.6-4.6) K/mcL Monocytes # (0.0-1.3) K/mcL Eosinophils # (0.0-0.6) K/mcL Basophils # (0.0-0.2) K/mcL PT (9.4-12.1) Seconds INR Sodium (136-145) mEq/L Potassium (3.5-5.1) mEq/L Chloride (98-107) mEq/L Carbon Dioxide (23-29) mEq/L BUN (6-20) mg/dL Creatinine (0.70-1.30) mg/dL Est GFR ( Amer) (> 60) Est GFR (Non-Af Amer) (> 60) BUN/Creatinine Ratio (6-26) Glucose (70-105) mg/dL Calculated Osmolality (280-300) Lactic Acid 0.8 (0.5-2.2) mmol/L Calcium (8.6-10.3) mg/dL Total Bilirubin (0.3-1.0) mg/dL Direct Bilirubin (0.0-0.2) mg/dL Indirect Bilirubin (0.0-1.2) mg/dL AST (13-39) Units/L ALT (7-52) Units/L Alkaline Phosphatase (34-104) Units/L Serum Total Protein (6.4-8.9) g/dL Albumin (3.5-5.7) g/dL Globulin (2.4-3.5) g/dL Albumin/Globulin Ratio (1.1-2.2) - Radiology Data Radiology results reviewed: Yes I reviewed the patient's radiology results.
[2019-01-15] MEDS ORDERED: *HR* FentaNYL (PF) 100 MCG/2 ML VIAL IVP ONE ×2 (19:00→21:10)
[2019-01-15] MEDS ORDERED: Piperacillin/Tazobactam 3.375 GM in 0.9 % Sodium Chloride Mini Bag 100 ML IVPB ONE (19:52)
--- NOTE | 2019-01-15 20:41 | Emergency Department Note ---
Disposition Clinical Impression: Abscess, IV drug abuse Cellulitis Qualifiers: Site of cellulitis: extremity Site of cellulitis of extremity: upper extremity Laterality: unspecified laterality Qualified Code(s): L03.119 - Cellulitis of unspecified part of limb Disposition: Admitted As Inpatient Condition: Good Time of Disposition: 20:40 General Adult HPI - General Chief complaint: ED Extremity Problem,Nontraumatic Stated complaint: infection in arms Time Seen by Provider: 01/15/19 15:38 Source: patient Mode of arrival: ambulatory Limitations: no limitations - History of Present Illness Pain Scale: 10 - Related Data Home Medications Medication Instructions Recorded Confirmed Buprenorphine HCl/Naloxone HCl 2 each SL BID 01/15/19 01/15/19 [Suboxone 8 mg-2 mg Sl Film] Ibuprofen [Ibu] 600 mg PO Q6HR PRN 01/15/19 01/15/19 Allergies Allergy/AdvReac Type Severity Reaction Status Date / Time No Known Allergies Allergy Verified 12/22/18 19:26 Constitutional: Reports: fever, chills Cardiovascular: Denies: chest pain, palpitations, dyspnea on exertion Respiratory: Denies: cough, dyspnea, wheezes Gastrointestinal: Denies: abdominal pain, nausea, vomiting Genitourinary: Denies: dysuria, hematuria Musculoskeletal: Denies: back pain, neck pain Integumentary: Reports: other (bilateral forearm cellulitis) Neurological: Denies: headache Endocrine: Reports: fatigue Past Medical History - Past Medical History Medical history: Reports: IV drug use, other Surgical history: Reports: no surgical history Psychiatric history: Reports: depression - Social History Smoking Status: Current every day smoker Smokeless Tobacco Status: No Alcohol use: Reports: none Drug use: Reports: cocaine, opiates, marijuana, methamphetamine, IV Drug Use, prescription drug abuse, other Physical Exam - General Limitations: no limitations General appearance: alert, in no apparent distress Course Vital Signs Temperature 98.2 F 01/15/19 15:34 Pulse Rate 84 01/15/19 15:34 Respiratory Rate 16 01/15/19 15:34 Blood Pressure 148/95 01/15/19 15:34 O2 Sat by Pulse Oximetry 99 01/15/19 15:34 Temperature 98.0 F 01/15/19 21:56 Pulse Rate 78 01/15/19 21:56 Respiratory Rate 18 01/15/19 21:56 Blood Pressure 152/90 01/15/19 21:56 O2 Sat by Pulse Oximetry 99 01/15/19 21:56 Oxygen Delivery Oxygen Delivery Room Air Medical Decision Making - Lab Data Result diagrams: 01/15/19 16:11 01/15/19 16:11 Lab Results 01/15/19 01/15/19 01/15/19 Range/Units 16:11 16:11 16:11 WBC 6.8 (4.3-11.1) K/mcL RBC 4.84 (4.19-5.50) M/mcL Hgb 13.6 (12.9-16.9) g/dL Hct 41.3 (37.5-50.1) % MCV 85.3 (83.0-100.0) fL MCH 28.1 (28.0-33.3) pg MCHC 32.9 (31.6-35.5) g/dL RDW 13.6 (11.5-14.5) % Plt Count 372 (140-400) K/mcL MPV 8.7 L (9.4-12.4) fL Immature Gran % 0.1 (0-4) % Seg Neutrophils % 61.3 % Lymphocytes % 30.6 % Monocytes % 6.7 % Eosinophils % 0.6 % Basophils % 0.7 % Neutrophils # 4.2 (1.6-8.9) K/mcL Lymphocytes # 2.1 (0.6-4.6) K/mcL Monocytes # 0.5 (0.0-1.3) K/mcL Eosinophils # 0.0 (0.0-0.6) K/mcL Basophils # 0.1 (0.0-0.2) K/mcL PT 12.6 H (9.4-12.1) Seconds INR 1.1 Sodium 134 L (136-145) mEq/L Potassium 3.7 (3.5-5.1) mEq/L Chloride 102 (98-107) mEq/L Carbon Dioxide 25 (23-29) mEq/L BUN 15 (6-20) mg/dL Creatinine 0.64 L (0.70-1.30) mg/dL Est GFR ( Amer) > 60 (> 60) Est GFR (Non-Af Amer) > 60 (> 60) BUN/Creatinine Ratio 23 (6-26) Glucose 150 H (70-105) mg/dL Calculated Osmolality 282 (280-300) Lactic Acid (0.5-2.2) mmol/L Calcium 9.7 (8.6-10.3) mg/dL Total Bilirubin 0.6 (0.3-1.0) mg/dL Direct Bilirubin 0.1 (0.0-0.2) mg/dL Indirect Bilirubin 0.5 (0.0-1.2) mg/dL AST 36 (13-39) Units/L ALT 36 (7-52) Units/L Alkaline Phosphatase 117 H (34-104) Units/L Serum Total Protein 8.6 (6.4-8.9) g/dL Albumin 3.6 (3.5-5.7) g/dL Globulin 5.0 H (2.4-3.5) g/dL Albumin/Globulin Ratio 0.7 L (1.1-2.2) 01/15/19 Range/Units 16:11 WBC (4.3-11.1) K/mcL RBC (4.19-5.50) M/mcL Hgb (12.9-16.9) g/dL Hct (37.5-50.1) % MCV (83.0-100.0) fL MCH (28.0-33.3) pg MCHC (31.6-35.5) g/dL RDW (11.5-14.5) % Plt Count (140-400) K/mcL MPV (9.4-12.4) fL Immature Gran % (0-4) % Seg Neutrophils % % Lymphocytes % % Monocytes % % Eosinophils % % Basophils % % Neutrophils # (1.6-8.9) K/mcL Lymphocytes # (0.6-4.6) K/mcL Monocytes # (0.0-1.3) K/mcL Eosinophils # (0.0-0.6) K/mcL Basophils # (0.0-0.2) K/mcL PT (9.4-12.1) Seconds INR Sodium (136-145) mEq/L Potassium (3.5-5.1) mEq/L Chloride (98-107) mEq/L Carbon Dioxide (23-29) mEq/L BUN (6-20) mg/dL Creatinine (0.70-1.30) mg/dL Est GFR ( Amer) (> 60) Est GFR (Non-Af Amer) (> 60) BUN/Creatinine Ratio (6-26) Glucose (70-105) mg/dL Calculated Osmolality (280-300) Lactic Acid 0.8 (0.5-2.2) mmol/L Calcium (8.6-10.3) mg/dL Total Bilirubin (0.3-1.0) mg/dL Direct Bilirubin (0.0-0.2) mg/dL Indirect Bilirubin (0.0-1.2) mg/dL AST (13-39) Units/L ALT (7-52) Units/L Alkaline Phosphatase (34-104) Units/L Serum Total Protein (6.4-8.9) g/dL Albumin (3.5-5.7) g/dL Globulin (2.4-3.5) g/dL Albumin/Globulin Ratio (1.1-2.2) Attestation Statement - Attestation Attestation: I examined this patient and my medical decision-making was reviewed with the Resident Physician. I agree with the documented findings, disposition and treatment plan as described except to the extent set forth below. Patient 38-year-old gentleman who presents to the emergency department with chief complaint of cellulitis and abscesses to bilateral forearms. The patient reports that he is an IV drug user and has been injecting drugs most recently patient states that he has become infected and is unable to care for himself at home. The patient reports fevers and chills Exam patient is awake alert no acute distress. There is areas of erythema and tract ley to bilateral upper extremities. Medical decision management given the extensive nature of the cellulitis and abscesses the patient was started on IV antibiotics in the emergency department and the case was discussed with the hospitalist. The patient was also consulted with surgery which will see the patient in the inpatient setting for possible surgical debridement.
[2019-01-15] MEDS ORDERED: *HR* HYDROcodone/Acet 10/325 mg TABLET PO ONE (21:10)
[2019-01-15] MEDS: Nicotine 21 MG PATCH.TD24 TD SCH (23:12)
--- NOTE | 2019-01-15 23:15 | Internal Med History&Physical ---
Date of Encounter: 01/15/19 Time of Encounter: 23:15 Internal Medicine - H&P: HPI Chief complaint: Erythema, swelling of the bilateral lower extremities History of present illness: Mr. Alvares is a 38 year old male with past medical history of IV drug abuse in both upper and lower extremity who presented with erythema, swelling and several wounds or lower extremity edema, the patient admitted injecting IV drugs them both arms for the last 2 days and start experiencing subjective fever and chills, generalized weakness. The patient was evaluated by the ER staff and CT scan of right upper extremities revealed Diffuse soft tissue swelling and subcutaneous edema. along the dorsal surface of the mid forearm there is a developing superficial abscess measuring at least 2.2 cm. Additional small abscess measuring 10 mm with a small focus of air along the distal forearm. Retained linear radiopaque foreign body along the distal forearm. CT scan of the left upper extremities revealed Diffuse dorsal and lateral soft tissue swelling with foci of soft tissue air in the dorsal mid forearm likely due to skin ulceration. Developing abscess contiguous with the skin surface is not excluded. No osseous findings to suggest osteomyelitis. Radiopaque objects within the forearm and hand of uncertain etiology. These are within the lateral distal forearm. The patient was started on empiric antibiotic with vancomycin and Zosyn, blood culture was obtained. Surgery was consulted for further evaluation and management of abscesses. The patient was admitted for further evaluation and management Past Med Surg Social Fam HX - Past Medical History Medical history: IV drug use, other Additional medical history: MRSA on right leg. substance abuse Psychiatric history: depression - Past Surgical History Surgical History: no surgical history - Social History Smoking Status: Current every day smoker Smokeless Tobacco Status: No Alcohol use: none Drug use: cocaine, opiates, marijuana, methamphetamine, IV Drug Use, prescription drug abuse, other Internal Medicine - H&P: Meds Buprenorphine HCl/Naloxone HCl [Suboxone 8 mg-2 mg Sl Film] 2 each SL DAILY 01/15/19 [History] Ibuprofen [Ibu] 600 mg PO Q6HR PRN 01/15/19 [History] Nicotine Patch [Nicoderm] 21 mg TD Q24H #21 patch.td24 01/18/19 [Rx] levoFLOXacin [Levaquin] 750 mg PO DAILY 10 Days #10 tablet 01/18/19 [Rx] Allergy/AdvReac Type Severity Reaction Status Date / Time No Known Allergies Allergy Verified 12/22/18 19:26 All Systems PM: A 10-system review of systems was performed and is negative for pertinent findings except as documented above in the HPI. - Constitutional Vitals: Temp Pulse Resp BP Pulse Ox 98.0 F 78 18 152/90 99 01/15/19 21:56 01/15/19 21:56 01/15/19 21:56 01/15/19 21:56 01/15/19 21:56 General appearance: Present: A&O X 3 Exam: ` - Head Head exam: Present: atraumatic, normocephalic - Neck Neck exam general surgery: Present: supple, trachea midline. Absent: lymphadenopathy - Cardiovascular Cardiovascular exam: Present: RRR, +S1, +S2. Absent: diastolic murmur, gallop, rubs, systolic murmur - GI/Abdominal GI/Abdominal exam: Present: normal bowel sounds, soft, no peritoneal signs. Absent: distended, tenderness - Extremities Exam Extremities exam: Present: warm, radial pulses palpable and symmetrical. Absent: calf tenderness, cyanotic, pedal edema - Expanded Upper Extremities Exam General: Present: foreign body Upper Arm exam: Present: erythema, swelling, tenderness Internal Med - H&P Results - Labs CBC & Chem 7: 01/19/19 03:30 01/19/19 03:30 Labs: Short CBC 01/15/19 Range/Units 16:11 WBC 6.8 (4.3-11.1) K/mcL Hgb 13.6 (12.9-16.9) g/dL Hct 41.3 (37.5-50.1) % Plt Count 372 (140-400) K/mcL Neutrophils # 4.2 (1.6-8.9) K/mcL BMP 01/15/19 16:11 Sodium 134 L Potassium 3.7 Chloride 102 Carbon Dioxide 25 BUN 15 Creatinine 0.64 L Glucose 150 H Calcium 9.7 Liver Function 01/15/19 Range/Units 16:11 Total Bilirubin 0.6 (0.3-1.0) mg/dL Direct Bilirubin 0.1 (0.0-0.2) mg/dL AST 36 (13-39) Units/L ALT 36 (7-52) Units/L Alkaline Phosphatase 117 H (34-104) Units/L Albumin 3.6 (3.5-5.7) g/dL - Impressions ITS Impressions Chest X-Ray 01/15/19 15:50 IMPRESSION: Low lung markings. No acute cardiopulmonary process. D/ / 01/15/2019 16:41:46 Gabe Lima MD / mary Interpreting Provider: Gabe Lima MD Upper Extremity CT 01/15/19 16:20 IMPRESSION: Diffuse dorsal and lateral soft tissue swelling with foci of soft tissue air in the dorsal mid forearm likely due to skin ulceration. Developing abscess contiguous with the skin surface is not excluded. No osseous findings to suggest osteomyelitis. Radiopaque objects within the forearm and hand of uncertain etiology. These are within the lateral distal forearm. These are also within the 4th ray laterally. D/ / 01/15/2019 19:37:50 Anderson Mtz / mary Interpreting Provider: Anderson Mtz Upper Extremity CT 01/15/19 16:20 IMPRESSION: Diffuse soft tissue swelling and subcutaneous edema. Along the dorsal surface of the mid forearm there is a developing superficial abscess measuring at least 2.2 cm. Additional small abscess measuring 10 mm with a small focus of air along the distal forearm. Retained linear radiopaque foreign body along the distal forearm. D/ / Renard Gutierrez MD / Renard Gutierrez MD Interpreting Provider: Renard Gutierrez MD - Assessment and Plan (1) Cellulitis Current Visit: Yes Status: Acute Assessment and plan: Both of bilateral upper extremities with abscess formation and foreign bodies Noted on the CT scan. The patient was started on empiric antibiotic with vancomycin and Zosyn, blood culture was obtained. Surgery was consulted for further evaluation and management of abscesses. Qualifiers: Site of cellulitis: extremity Site of cellulitis of extremity: upper extremity Laterality: unspecified laterality Qualified Code(s): L03.119 - Cellulitis of unspecified part of limb (2) Heroin abuse Current Visit: No Status: Acute Assessment and plan: The patient is on Suboxone however he admitted that he was not taking it because he is continuing IV drug abuse. (3) Methamphetamine abuse Current Visit: No Status: Acute (4) Current nicotine use Current Visit: No Status: Acute (5) DVT prophylaxis Current Visit: No Status: Acute - Time Spent With Patient Total time spent is greater than 50% in coordination of care (as documented) at patient's floor/unit and/or counseling patient:
[2019-01-15] MEDS ORDERED: Naloxone 0.4 MG/ML INJ IVP PRN (23:19)
[2019-01-16 02:15] LABS: Bilirubin,Urine Negative (Negative); Blood,Urine Negative (Negative); Clarity,Urine Clear (Clear); Color,Urine Yellow (Yellow); Glucose,Urine (UA) Normal (Normal); Ketones,Urine Negative (Negative); Leukocyte Esterase,Urine Negative (Negative); Nitrite,Urine Negative (Negative); Protein,Urine 30 mg/dL (Neg-Trace); Specific Gravity,Urine > 1.030 (1.010-1.025); Urobilinogen,Urine Normal (Normal)
[2019-01-16] MEDS: Ketorolac 15 MG/ML VIAL IVP PRN ×4 (02:21→21:48)
[2019-01-16 02:22] LABS: Bacteria,Urine None Seen per hpf (None-Few); Hyaline Casts,Urine None Seen per lpf (None-Few); Squamous Epithelial Cell,Urine Many per lpf (None-Few)
[2019-01-16] MEDS: Ondansetron 4 MG/2 ML VIAL IVP PRN ×3 (07:00→23:39)
[2019-01-16 08:38] LABS: Basophils % 0.8 %; Eosinophils # 0.1 K/mcL (0.0-0.6); Eosinophils % 2.8 %; Hematocrit 39.7 % (37.5-50.1); Hemoglobin 12.9 g/dL (12.9-16.9); Immature Granulocytes % 0.2 % (0-4); Lymphocytes # 1.5 K/mcL (0.6-4.6); Lymphocytes % 30.6 %; Mean Corpuscular HGB Conc 32.5 g/dL (31.6-35.5); Mean Corpuscular Hemoglobin 28.4 pg (28.0-33.3); Mean Corpuscular Volume 87.4 fL (83.0-100.0); Mean Platelet Volume 9.1 fL (9.4-12.4); Monocytes # 0.5 K/mcL (0.0-1.3); Monocytes % 10.2 %; Neutrophils # 2.8 K/mcL (1.6-8.9); Platelet Count 323 K/mcL (140-400); Red Blood Count 4.54 M/mcL (4.19-5.50); Red Cell Distribution Width 13.8 % (11.5-14.5); Segmented Neutrophils % 55.4 %
[2019-01-16 08:45] LABS: Prothrombin Time 11.8 Seconds (9.4-12.1)
[2019-01-16 08:48] LABS: Activated Partial Thrombo Time 32.4 Seconds (26.0-36.0)
[2019-01-16] MEDS: Piperacillin/Tazobactam 3.375 GM in 0.9 % Sodium Chloride Mini Bag 100 ML IVPB SCH ×4 (08:59→23:39)
[2019-01-16 09:04] LABS: Alanine Aminotransferase 31 Units/L (7-52); Albumin 3.2 g/dL (3.5-5.7); Albumin/Globulin Ratio 0.7 (1.1-2.2); Alkaline Phosphatase 99 Units/L (34-104); Aspartate Amino Transferase 34 Units/L (13-39); Bilirubin,Total 0.6 mg/dL (0.3-1.0); Blood Urea Nitrogen 16 mg/dL (6-20); Calcium 8.9 mg/dL (8.6-10.3); Carbon Dioxide 22 mEq/L (23-29); Chloride 104 mEq/L (98-107); Chol/HDL Ratio 3.5 (0-4.9); Cholesterol 105 mg/dL (< 200); Globulin 4.3 g/dL (2.4-3.5); Glucose 114 mg/dL (70-105); HDL Cholesterol 30 mg/dL (40-59); LDL Cholesterol,Calculated 60 mg/dL (0-99); Magnesium 1.9 mg/dL (1.6-2.6); Osmolality,Calculated 284 (280-300); Phosphorous 3.4 mg/dL (2.7-4.5); Sodium 136 mEq/L (136-145); Total Protein 7.5 g/dL (6.4-8.9); Triglycerides 75 mg/dL (< 150)
[2019-01-16 09:35] LABS: BUN/Creatinine Ratio 28 (6-26); eGFR For African Americans > 60 (> 60); eGFR For Non-African Americans > 60 (> 60)
[2019-01-16] MEDS: *HR* Buprenorphine HCl 8 MG TAB.SUBL SL SCH (09:55)
--- NOTE | 2019-01-16 10:05 | Internal Med Progress Note ---
Hospitalist Progress Note - Encounter Date of Encounter: 01/16/19 Time of Encounter: 10:05 - Subjective Interval History: Patient seen and examined this morning at bedside. No acute overnight events. Denies new complaints. Afebrile. He continues to use IV drugs. Mentions he takes Suboxone. He mentions that on his right arm he feels some tingling in his hand and remember having a needle stuck in. Requesting better pain management. Denies any chest pain difficulty breathing abdominal pain. Recently had fracture right leg and has a cast. - Exam Vitals: Temp Pulse Resp BP Pulse Ox 98.0 F 70 15 155/94 97 01/16/19 08:14 01/16/19 08:14 01/16/19 08:14 01/16/19 08:14 01/16/19 08:15 Exam: General: In no acute distress. unkempt Respiratory exam: CTAB. no accessory muscle use, rales, rhonchi, wheezes Cardiovascular exam: RRR, +S1, +S2. no murmur, gallop, rubs. GI/Abdominal exam: Non-tender, Non-distended, normal bowel sounds, soft, no peritoneal signs. Extremities exam: no calf tenderness. Rt leg cast. b/l UE multiple red areas with induration. Ulceration noted on Lt forearm. Neurological exam: CN II-XII intact, AO X3, no focal deficits. Skin exam: No skin rash - Assessment and Plan (1) Current nicotine use Current Visit: No Status: Acute (2) DVT prophylaxis Current Visit: No Status: Acute (3) Cellulitis Current Visit: Yes Status: Acute (4) Methamphetamine abuse Current Visit: No Status: Acute (5) Heroin abuse Current Visit: No Status: Acute - Summary of Assessment and Plan Summary of Assessment and Plan: Assessment Acute Abscess and cellulitis with foreign body Chronic current IVDU Plan - c/w empiric vancomycina and zosyn. Surgery consulted give CT finding of Rt forearm abscess and foreign body in distal rt forearm and Lt forearm radioopaque foreign body as well - c/u blood and would cultures - reume home suboxone once confirmed. c/w toradol for apin control - sc heparin for dvt ppx. Internal Medicine: Result - Labs CBC & Chem 7: 01/16/19 07:46 01/16/19 07:46 Labs: Short CBC 01/15/19 01/16/19 Range/Units 16:11 07:46 WBC 6.8 5.0 (4.3-11.1) K/mcL Hgb 13.6 12.9 (12.9-16.9) g/dL Hct 41.3 39.7 (37.5-50.1) % Plt Count 372 323 (140-400) K/mcL Neutrophils # 4.2 2.8 (1.6-8.9) K/mcL BMP 01/15/19 01/16/19 16:11 07:46 Sodium 134 L 136 Potassium 3.7 4.0 Chloride 102 104 Carbon Dioxide 25 22 L BUN 15 16 Creatinine 0.64 L 0.58 L Glucose 150 H 114 H Calcium 9.7 8.9 Liver Function 01/15/19 01/16/19 Range/Units 16:11 07:46 Total Bilirubin 0.6 0.6 (0.3-1.0) mg/dL Direct Bilirubin 0.1 (0.0-0.2) mg/dL AST 36 34 (13-39) Units/L ALT 36 31 (7-52) Units/L Alkaline Phosphatase 117 H 99 (34-104) Units/L Albumin 3.6 3.2 L (3.5-5.7) g/dL Urine 01/16/19 Range/Units 02:00 Urine Color Yellow (Yellow) Urine Clarity Clear (Clear) Urine pH 6.0 (5.0-8.0) pH Units Ur Specific [place] > 1.030 H (1.010-1.025) Urine Protein 30 H (Neg-Trace) mg/dL Urine Glucose (UA) Normal (Normal) mg/dL - ABG Interpretation ABG results: PT/INR, D-dimer PT 11.8 Seconds (9.4-12.1) 01/16/19 07:46 - Impressions Impressions Chest X-Ray 01/15/19 15:50 IMPRESSION: Low lung markings. No acute cardiopulmonary process. D/ / 01/15/2019 16:41:46 Gabe Lima MD / mary Interpreting Provider: Gabe Lima MD Upper Extremity CT 01/15/19 16:20 IMPRESSION: Diffuse dorsal and lateral soft tissue swelling with foci of soft tissue air in the dorsal mid forearm likely due to skin ulceration. Developing abscess contiguous with the skin surface is not excluded. No osseous findings to suggest osteomyelitis. Radiopaque objects within the forearm and hand of uncertain etiology. These are within the lateral distal forearm. These are also within the 4th ray laterally. D/ / 01/15/2019 19:37:50 Anderson Mtz / mary Interpreting Provider: Anderson Mtz Upper Extremity CT 01/15/19 16:20 IMPRESSION: Diffuse soft tissue swelling and subcutaneous edema. Along the dorsal surface of the mid forearm there is a developing superficial abscess measuring at least 2.2 cm. Additional small abscess measuring 10 mm with a small focus of air along the distal forearm. Retained linear radiopaque foreign body along the distal forearm. D/ / Renard Gutierrez MD / Renard Gutierrez MD Interpreting Provider: Renard Gutierrez MD Consult Discharge Plan - Plan Referrals: Jennifer Bob [Primary Care Provider] - (3) Cellulitis Qualifiers: Site of cellulitis: extremity Site of cellulitis of extremity: upper extremity Laterality: unspecified laterality Qualified Code(s): L03.119 - Cellulitis of unspecified part of limb
--- NOTE | 2019-01-16 10:15 | AcuteCare Surgery Consult Note ---
<Kathryn Levine - Last Filed: 01/16/19 10:21> Date of Encounter: 01/16/19 Time of Encounter: 07:20 Assessment and Plan (1) Cellulitis Current Visit: Yes Status: Acute BL UE are with superficial thrombophlebitis/cellulitis. There is induration but no fluctuance. There is no drainage. There is no abscess to target at this point. There is no interdigital petechiae noted. left upper extremity CT, there is diffuse dorsal and lateral soft tissue swelling with the foci of soft tissue air in the dorsal mid forearm likely due to an ulceration however there is no drainage noted at this time. There are radio opaque objects within the forearm and hand of uncertain etiology. Right upper extremity CT noted diffuse soft tissue swelling and subcutaneous edema. Along the dorsal surface of the mid forearm there is a developing superficial abscess with an additional small abscess with a small focus of air along the distal forearm. Again on neither upper extremity there is no target abscess at this time. Recommend continuing IV antibiotics per primary team Bilateral warm moist compresses Q2 hours We will reassess in the a.m. Recommend a 2D echo given IV drug abuse history Qualifiers: Site of cellulitis: extremity Site of cellulitis of extremity: upper extremity Laterality: unspecified laterality Qualified Code(s): L03.119 - Cellulitis of unspecified part of limb (2) IV drug abuse Current Visit: Yes Status: Acute History of Present Illness Consult date: 01/16/19 (Dr. Papo Houston) Reason for consult: other (BL asbcess) Requesting physician: Sheron Singer History of present illness: Pt's PMH, PSH, social, and family history have been reviewed at bedside and per old records and have been updated in the EMR where indicated. Surgery been consulted for recommendations regarding possible bilateral arm abscesses. Patient presented on 01/15/2019 with complaints of swelling of both upper extremities as well as lower extremity edema. He admitted to injecting IV drugs in both arms in the last 2 days and then began experiencing fever, chills, and generally feeling weak and tired. He was seen in the emergency department at which time a CAT scan of the bilateral upper extremities was completed noting possibly developing abscesses. There was a radio opaque object within the forearm and hand with uncertain etiology. Presently he denies any changes in either extremity. He reports they are swollen, warm, firm, and tender. He denies drainage. Past Med Surg Social Fam HX - Past Medical History Source: patient, old records reviewed Medical history: IV drug use, other Additional medical history: MRSA on right leg. substance abuse Psychiatric history: PTSD - Past Surgical History Surgical History: no surgical history - Social History Smoking Status: Current every day smoker Packs per day: 1 Smokeless Tobacco Status: No Alcohol use: none Drug use: cocaine, opiates, marijuana, methamphetamine, IV Drug Use Medications and Allergies Buprenorphine HCl/Naloxone HCl [Suboxone 8 mg-2 mg Sl Film] 2 each SL DAILY 01/15/19 [History] Ibuprofen [Ibu] 600 mg PO Q6HR PRN 01/15/19 [History] Allergy/AdvReac Type Severity Reaction Status Date / Time No Known Allergies Allergy Verified 12/22/18 19:26 Review of Systems All systems PM: reviewed and no additional remarkable complaints except as stated All systems PM: The remainder of the systems were reviewed and are negative General Surgery Exam Initial Vital Signs Temp Pulse Resp BP Pulse Ox 98.2 F 84 16 148/95 99 01/15/19 15:34 01/15/19 15:34 01/15/19 15:34 01/15/19 15:34 01/15/19 15:34 - General physical appearance well developed, well nourished, no distress - Neck trachea midline - Respiratory normal expansion, normal respiratory effort - Cardiovascular Cardiovascular exam: Present: RRR - Abdomen Abdomen general surgery: Present: bowel sounds present, soft, non tender - Integumentary Integumentary general surgery: Present: other (see a/p) - Neurologic Present: normal sensation - Musculoskeletal Present: normal posture - Psychiatric Psychiatric general surgery: Present: A&Ox3 Exam Initial Vital Signs Temp Pulse Resp BP Pulse Ox 98.2 F 84 16 148/95 99 01/15/19 15:34 01/15/19 15:34 01/15/19 15:34 01/15/19 15:34 01/15/19 15:34 Results - Labs 01/16/19 07:46 01/16/19 07:46 Abnormal lab results MPV 9.1 fL (9.4-12.4) L 01/16/19 07:46 ESR 101 mm/hr (0-10) H 01/15/19 16:09 PT 12.6 Seconds (9.4-12.1) H 01/15/19 16:11 Sodium 134 mEq/L (136-145) L 01/15/19 16:11 Carbon Dioxide 22 mEq/L (23-29) L 01/16/19 07:46 Creatinine 0.58 mg/dL (0.70-1.30) L 01/16/19 07:46 BUN/Creatinine Ratio 28 (6-26) H 01/16/19 07:46 Glucose 114 mg/dL (70-105) H 01/16/19 07:46 Alkaline Phosphatase 117 Units/L (34-104) H 01/15/19 16:11 Albumin 3.2 g/dL (3.5-5.7) L 01/16/19 07:46 Globulin 4.3 g/dL (2.4-3.5) H 01/16/19 07:46 Albumin/Globulin Ratio 0.7 (1.1-2.2) L 01/16/19 07:46 HDL Cholesterol 30 mg/dL (40-59) L 01/16/19 07:46 Ur Specific [place] > 1.030 (1.010-1.025) H 01/16/19 02:00 Urine Protein 30 mg/dL (Neg-Trace) H 01/16/19 02:00 Urine Microscopic RBC 3-5 per hpf (0-3) H 01/16/19 02:00 Urine Microscopic WBC 5-15 per hpf (0-3) H 01/16/19 02:00 Ur Squamous Epith Cells Many per lpf (None-Few) H 01/16/19 02:00 Diabetes panel 01/15/19 01/16/19 Range/Units 16:11 07:46 Sodium 134 L 136 (136-145) mEq/L Potassium 3.7 4.0 (3.5-5.1) mEq/L Chloride 102 104 (98-107) mEq/L Carbon Dioxide 25 22 L (23-29) mEq/L BUN 15 16 (6-20) mg/dL Creatinine 0.64 L 0.58 L (0.70-1.30) mg/dL Glucose 150 H 114 H (70-105) mg/dL Calcium 9.7 8.9 (8.6-10.3) mg/dL AST 36 34 (13-39) Units/L ALT 36 31 (7-52) Units/L Alkaline Phosphatase 117 H 99 (34-104) Units/L Albumin 3.6 3.2 L (3.5-5.7) g/dL Triglycerides 75 (< 150) mg/dL HDL Cholesterol 30 L (40-59) mg/dL Calcium panel 01/15/19 01/16/19 Range/Units 16:11 07:46 Calcium 9.7 8.9 (8.6-10.3) mg/dL Phosphorus 3.4 (2.7-4.5) mg/dL Albumin 3.6 3.2 L (3.5-5.7) g/dL Pituitary panel 01/15/19 01/16/19 Range/Units 16:11 07:46 Sodium 134 L 136 (136-145) mEq/L Potassium 3.7 4.0 (3.5-5.1) mEq/L Chloride 102 104 (98-107) mEq/L Carbon Dioxide 25 22 L (23-29) mEq/L BUN 15 16 (6-20) mg/dL Creatinine 0.64 L 0.58 L (0.70-1.30) mg/dL Glucose 150 H 114 H (70-105) mg/dL Calcium 9.7 8.9 (8.6-10.3) mg/dL Adrenal panel 01/15/19 01/16/19 Range/Units 16:11 07:46 Sodium 134 L 136 (136-145) mEq/L Potassium 3.7 4.0 (3.5-5.1) mEq/L Chloride 102 104 (98-107) mEq/L Carbon Dioxide 25 22 L (23-29) mEq/L BUN 15 16 (6-20) mg/dL Creatinine 0.64 L 0.58 L (0.70-1.30) mg/dL Glucose 150 H 114 H (70-105) mg/dL Calcium 9.7 8.9 (8.6-10.3) mg/dL Total Bilirubin 0.6 0.6 (0.3-1.0) mg/dL AST 36 34 (13-39) Units/L ALT 36 31 (7-52) Units/L Alkaline Phosphatase 117 H 99 (34-104) Units/L Albumin 3.6 3.2 L (3.5-5.7) g/dL All other labs normal. - Imaging Additional studies: CT BL ext report and images reviewed Consult Discharge Plan - Plan Referrals: Jennifer Bob [Primary Care Provider] - <Papo Houston - Last Filed: 01/16/19 12:39> Date of Encounter: 01/16/19 Review of Systems All systems PM: The remainder of the systems were reviewed and are negative General Surgery Exam Initial Vital Signs Temp Pulse Resp BP Pulse Ox 98.2 F 84 16 148/95 99 01/15/19 15:34 01/15/19 15:34 01/15/19 15:34 01/15/19 15:34 01/15/19 15:34 Exam Initial Vital Signs Temp Pulse Resp BP Pulse Ox 98.2 F 84 16 148/95 99 01/15/19 15:34 01/15/19 15:34 01/15/19 15:34 01/15/19 15:34 01/15/19 15:34 Results - Labs 01/16/19 07:46 01/16/19 07:46 Abnormal lab results MPV 9.1 fL (9.4-12.4) L 01/16/19 07:46 ESR 101 mm/hr (0-10) H 01/15/19 16:09 PT 12.6 Seconds (9.4-12.1) H 01/15/19 16:11 Sodium 134 mEq/L (136-145) L 01/15/19 16:11 Carbon Dioxide 22 mEq/L (23-29) L 01/16/19 07:46 Creatinine 0.58 mg/dL (0.70-1.30) L 01/16/19 07:46 BUN/Creatinine Ratio 28 (6-26) H 01/16/19 07:46 Glucose 114 mg/dL (70-105) H 01/16/19 07:46 Alkaline Phosphatase 117 Units/L (34-104) H 01/15/19 16:11 Albumin 3.2 g/dL (3.5-5.7) L 01/16/19 07:46 Globulin 4.3 g/dL (2.4-3.5) H 01/16/19 07:46 Albumin/Globulin Ratio 0.7 (1.1-2.2) L 01/16/19 07:46 HDL Cholesterol 30 mg/dL (40-59) L 01/16/19 07:46 Ur Specific [place] > 1.030 (1.010-1.025) H 01/16/19 02:00 Urine Protein 30 mg/dL (Neg-Trace) H 01/16/19 02:00 Urine Microscopic RBC 3-5 per hpf (0-3) H 01/16/19 02:00 Urine Microscopic WBC 5-15 per hpf (0-3) H 01/16/19 02:00 Ur Squamous Epith Cells Many per lpf (None-Few) H 01/16/19 02:00 Diabetes panel 01/15/19 01/16/19 Range/Units 16:11 07:46 Sodium 134 L 136 (136-145) mEq/L Potassium 3.7 4.0 (3.5-5.1) mEq/L Chloride 102 104 (98-107) mEq/L Carbon Dioxide 25 22 L (23-29) mEq/L BUN 15 16 (6-20) mg/dL Creatinine 0.64 L 0.58 L (0.70-1.30) mg/dL Glucose 150 H 114 H (70-105) mg/dL Calcium 9.7 8.9 (8.6-10.3) mg/dL AST 36 34 (13-39) Units/L ALT 36 31 (7-52) Units/L Alkaline Phosphatase 117 H 99 (34-104) Units/L Albumin 3.6 3.2 L (3.5-5.7) g/dL Triglycerides 75 (< 150) mg/dL HDL Cholesterol 30 L (40-59) mg/dL Calcium panel 01/15/19 01/16/19 Range/Units 16:11 07:46 Calcium 9.7 8.9 (8.6-10.3) mg/dL Phosphorus 3.4 (2.7-4.5) mg/dL Albumin 3.6 3.2 L (3.5-5.7) g/dL Pituitary panel 01/15/19 01/16/19 Range/Units 16:11 07:46 Sodium 134 L 136 (136-145) mEq/L Potassium 3.7 4.0 (3.5-5.1) mEq/L Chloride 102 104 (98-107) mEq/L Carbon Dioxide 25 22 L (23-29) mEq/L BUN 15 16 (6-20) mg/dL Creatinine 0.64 L 0.58 L (0.70-1.30) mg/dL Glucose 150 H 114 H (70-105) mg/dL Calcium 9.7 8.9 (8.6-10.3) mg/dL Adrenal panel 01/15/19 01/16/19 Range/Units 16:11 07:46 Sodium 134 L 136 (136-145) mEq/L Potassium 3.7 4.0 (3.5-5.1) mEq/L Chloride 102 104 (98-107) mEq/L Carbon Dioxide 25 22 L (23-29) mEq/L BUN 15 16 (6-20) mg/dL Creatinine 0.64 L 0.58 L (0.70-1.30) mg/dL Glucose 150 H 114 H (70-105) mg/dL Calcium 9.7 8.9 (8.6-10.3) mg/dL Total Bilirubin 0.6 0.6 (0.3-1.0) mg/dL AST 36 34 (13-39) Units/L ALT 36 31 (7-52) Units/L Alkaline Phosphatase 117 H 99 (34-104) Units/L Albumin 3.6 3.2 L (3.5-5.7) g/dL All other labs normal. - Attending Attestation I have personally performed a face to face evaluation on this patient. I have reviewed and agree with the care plan. History and Exam by me shows: The patient is seen and evaluated on morning rounds with the acute care surgery team. Both upper extremities are identified and examined. He has good pulses. There are does not appear to be any injury to the fingertips from embolization. He has indurated cellulitic areas on both forearms. CT reports needle foreign body in these areas. There are no areas of fluctuance and no areas of abscess. The areas appear to be septic superficial thrombophlebitis that should respond to antibiotic therapy. There is no indication to remove foreign bodies. We will be glad to follow along with you. Papo Houston MD FACS
[2019-01-16] MEDS: Acetaminophen 325 MG TABLET PO SCH ×3 (10:58→23:39)
[2019-01-16] MEDS: *HR* Heparin 5,000 UNIT/ML VIAL SQ SCH ×2 (15:25→21:47)
[2019-01-16] MEDS: Nicotine 21 MG PATCH.TD24 TD SCH (21:47)
[2019-01-16] MEDS: Melatonin 3 MG TABLET PO SCH (21:48)
[2019-01-17 03:36] LABS: Basophils % 0.7 %; Eosinophils # 0.2 K/mcL (0.0-0.6); Hematocrit 34.8 % (37.5-50.1); Hemoglobin 11.5 g/dL (12.9-16.9); Immature Granulocytes % 0.2 % (0-4); Lymphocytes # 2.6 K/mcL (0.6-4.6); Lymphocytes % 45.8 %; Mean Corpuscular Hemoglobin 28.3 pg (28.0-33.3); Mean Corpuscular Volume 85.5 fL (83.0-100.0); Mean Platelet Volume 8.5 fL (9.4-12.4); Monocytes # 0.6 K/mcL (0.0-1.3); Monocytes % 10.3 %; Neutrophils # 2.2 K/mcL (1.6-8.9); Platelet Count 300 K/mcL (140-400); Red Blood Count 4.07 M/mcL (4.19-5.50); Red Cell Distribution Width 13.3 % (11.5-14.5); White Blood Count 5.6 K/mcL (4.3-11.1)
[2019-01-17 05:05] LABS: BUN/Creatinine Ratio 25 (6-26); Blood Urea Nitrogen 10 mg/dL (6-20); Carbon Dioxide 20 mEq/L (23-29); Chloride 111 mEq/L (98-107); Glucose 93 mg/dL (70-105); Osmolality,Calculated 287 (280-300); Potassium 2.9 mEq/L (3.5-5.1); Sodium 139 mEq/L (136-145); eGFR For African Americans > 60 (> 60); eGFR For Non-African Americans > 60 (> 60)
[2019-01-17] MEDS ORDERED: Potassium Chloride Elixir 20 MEQ/15 ML UDC PO ONE (05:06)
[2019-01-17] MEDS: Ketorolac 15 MG/ML VIAL IVP PRN (05:25)
[2019-01-17] MEDS: *HR* Heparin 5,000 UNIT/ML VIAL SQ SCH ×3 (05:25→20:30)
[2019-01-17] MEDS: Acetaminophen 325 MG TABLET PO SCH ×3 (05:25→19:25)
[2019-01-17] MEDS ORDERED: Ketorolac 15 MG/ML VIAL IVP PRN (07:51)
[2019-01-17] MEDS ORDERED: Potassium Chloride Elixir 20 MEQ/15 ML UDC PO SCH (08:00)
[2019-01-17] MEDS: Ondansetron 4 MG/2 ML VIAL IVP PRN ×2 (08:01→17:41)
[2019-01-17] MEDS: *HR* Buprenorphine HCl 8 MG TAB.SUBL SL SCH (08:01)
[2019-01-17] MEDS: Piperacillin/Tazobactam 3.375 GM in 0.9 % Sodium Chloride Mini Bag 100 ML IVPB SCH (08:02)
--- NOTE | 2019-01-17 08:14 | AcuteCareSurgery Progress Note ---
Date of Encounter: 01/17/19 Time of Encounter: 08:13 - Assessment and Plan (1) Cellulitis of upper extremity Current Visit: Yes Status: Acute 38M IV drug abuse history with concern for abscesses; most likely superficial thrombophlebitis/cellulitis. There is induration but no fluctuance. There is no drainage. There is no abscess to target at this point. no indication to remove foreign bodies; diet as tolerated abx per primary team ACS will sign off; please call with any new questions or concerns Qualifiers: Laterality: unspecified laterality Qualified Code(s): L03.119 - Cellulitis of unspecified part of limb Subjective Patient reports: no new complaints, feels better, still having pain, afebrile Objective Vital Signs - Last 8 Hours Temp Pulse Resp BP Pulse Ox 01/17/19 07:00 98.0 F 57 15 144/81 98 01/17/19 03:53 97.9 F 61 16 143/84 98 Intake and Output 01/16/19 01/17/19 01/17/19 23:59 07:59 15:59 Intake Total 840 / 2020 100 / 100 Output Total 0 / 400 400 / 400 Balance 840 / 1620 -300 / -300 Intake: IV Fluids 600 / 1300 100 / 100 Zosyn 3.375 GM In 0.9 % Sodium 100 / 200 100 / 100 Chloride (Mini-Bag +) 100 ML @ 25 mls/hr IVPB Q8HR SEUN Rx#: [id number] Vancocin 1,750 MG In 0.9 % 500 / 500 Sodium Chloride 500 ML @ 333.3 mls/hr IVPB Q12H SEUN Rx#: [id number] Oral 240 / 720 Output: Urine 0 / 400 400 / 400 Other: Weight 139.2 kg Patient Weight 01/17/19 23:59 Weight 139.2 kg - General physical appearance no distress - Respiratory normal expansion, normal respiratory effort - Cardiovascular Cardiovascular exam: Present: RRR - Abdomen Abdomen: Present: soft - Integumentary no rash, other (BL UE are with superficial thrombophlebitis/cellulitis. There is induration but no fluctuance. There is no drainage. ) - Psychiatric oriented to time, oriented to person, oriented to place - Labs 01/17/19 03:20 01/17/19 03:20 Diabetes panel 01/16/19 01/17/19 Range/Units 07:46 03:20 Sodium 136 139 (136-145) mEq/L Potassium 4.0 2.9 L D (3.5-5.1) mEq/L Chloride 104 111 H (98-107) mEq/L Carbon Dioxide 22 L 20 L (23-29) mEq/L BUN 16 10 (6-20) mg/dL Creatinine 0.58 L 0.40 L (0.70-1.30) mg/dL Glucose 114 H 93 (70-105) mg/dL Calcium 8.9 7.0 L (8.6-10.3) mg/dL AST 34 (13-39) Units/L ALT 31 (7-52) Units/L Alkaline Phosphatase 99 (34-104) Units/L Albumin 3.2 L (3.5-5.7) g/dL Triglycerides 75 (< 150) mg/dL HDL Cholesterol 30 L (40-59) mg/dL Calcium panel 01/16/19 01/17/19 Range/Units 07:46 03:20 Calcium 8.9 7.0 L (8.6-10.3) mg/dL Phosphorus 3.4 (2.7-4.5) mg/dL Albumin 3.2 L (3.5-5.7) g/dL Pituitary panel 01/16/19 01/17/19 Range/Units 07:46 03:20 Sodium 136 139 (136-145) mEq/L Potassium 4.0 2.9 L D (3.5-5.1) mEq/L Chloride 104 111 H (98-107) mEq/L Carbon Dioxide 22 L 20 L (23-29) mEq/L BUN 16 10 (6-20) mg/dL Creatinine 0.58 L 0.40 L (0.70-1.30) mg/dL Glucose 114 H 93 (70-105) mg/dL Calcium 8.9 7.0 L (8.6-10.3) mg/dL Adrenal panel 01/16/19 01/17/19 Range/Units 07:46 03:20 Sodium 136 139 (136-145) mEq/L Potassium 4.0 2.9 L D (3.5-5.1) mEq/L Chloride 104 111 H (98-107) mEq/L Carbon Dioxide 22 L 20 L (23-29) mEq/L BUN 16 10 (6-20) mg/dL Creatinine 0.58 L 0.40 L (0.70-1.30) mg/dL Glucose 114 H 93 (70-105) mg/dL Calcium 8.9 7.0 L (8.6-10.3) mg/dL Total Bilirubin 0.6 (0.3-1.0) mg/dL AST 34 (13-39) Units/L ALT 31 (7-52) Units/L Alkaline Phosphatase 99 (34-104) Units/L Albumin 3.2 L (3.5-5.7) g/dL Consult Discharge Plan - Plan Referrals: Jennifer Bob [Primary Care Provider] -
[2019-01-17] MEDS: Ketorolac 30 MG/ML VIAL IVP PRN ×2 (11:29→17:38)
--- NOTE | 2019-01-17 12:19 | Internal Med Progress Note ---
Hospitalist Progress Note - Encounter Date of Encounter: 01/17/19 Time of Encounter: 09:30 - Subjective Interval History: reports improvement in his bilateral UEs discomfort. No fever overnight. - Exam Vitals: Temp Pulse Resp BP Pulse Ox 98.0 F 64 15 122/71 98 01/17/19 10:54 01/17/19 10:54 01/17/19 10:54 01/17/19 10:54 01/17/19 10:54 Exam: General: In no acute distress. unkempt Respiratory exam: CTAB. no accessory muscle use, rales, rhonchi, wheezes Cardiovascular exam: RRR, +S1, +S2. no murmur, gallop, rubs. GI/Abdominal exam: Non-tender, Non-distended, normal bowel sounds, soft, no peritoneal signs. Extremities exam: R LE in cast. B/L UEs with multiple erythematous areas a/w induration. Ulceration noted on Lt forearm without any discharge. No drainage Neurological exam: CN II-XII intact, AO X3, no focal deficits. - Assessment and Plan (1) Cellulitis Current Visit: Yes Status: Acute (2) Current nicotine use Current Visit: No Status: Acute (3) Methamphetamine abuse Current Visit: No Status: Acute (4) Heroin abuse Current Visit: No Status: Acute (5) DVT prophylaxis Current Visit: No Status: Acute - Summary of Assessment and Plan Summary of Assessment and Plan: Acute Abscess and cellulitis with foreign body in both UEs Chronic current IVDU Plan - wound culture from L UE came back +ve for Serratia marcescens. Discussed with microbiology and there is a concern for 2nd GNR in that sample. Will continue IV zosyn but d/c Vanc while waitinf for final culture results. Surgery input appreciated, not for surgical intervention or removal of foreign body. - Follow up on final blood and would culture results - continue home dose of suboxone once confirmed. c/w toradol for pain control - sc heparin for dvt ppx. - PT/OT eval given his inability to take care of himself and recent R LE fracture. - Time Spent with Patient Total time spent is greater than 50% in coordination of care (as documented) at patient's floor/unit and/or counseling patient: 25 - 35 minutes Plan of Care Discussed with: patient (discussed with case management) Internal Medicine: Result - Labs CBC & Chem 7: 01/17/19 03:20 01/17/19 03:20 Labs: Short CBC 01/17/19 Range/Units 03:20 WBC 5.6 (4.3-11.1) K/mcL Hgb 11.5 L (12.9-16.9) g/dL Hct 34.8 L (37.5-50.1) % Plt Count 300 (140-400) K/mcL Neutrophils # 2.2 (1.6-8.9) K/mcL BMP 01/17/19 03:20 Sodium 139 Potassium 2.9 L D Chloride 111 H Carbon Dioxide 20 L BUN 10 Creatinine 0.40 L Glucose 93 Calcium 7.0 L - ABG Interpretation ABG results: PT/INR, D-dimer PT 11.8 Seconds (9.4-12.1) 01/16/19 07:46 - Impressions Impressions Echocardiogram 01/16/19 12:03 Impressions: LVEF 60%. Normal LV chamber size, wall thickness and function. Normal left ventricular diastolic function. Normal right ventricular structure and function. No evidence of pulmonary hypertension. No significant valvular dysfunction. No intracardiac vegetation visualized. Consider MEDHAT if clinically indicated Left Ventricular Wall Motion: Rest Echo Findings All wall segments showed normal motion. Findings: Study Quality * Technically adequate exam. ECG Findings * Normal sinus rhythm. Left Ventricle * LVEF 60%. * Normal LV chamber size, wall thickness and function. * Normal left ventricular diastolic function. Right Ventricle * Normal right ventricular structure and function. Left Atrium * Mildly dilated left atrium. Right Atrium * Normal right atrial size. Aortic Valve * Trileaflet aortic valve. * Normal aortic valve structure. * No aortic regurgitation. * No aortic stenosis. Mitral Valve * No mitral regurgitation. * No mitral stenosis. * Mildly thickened mitral valve leaflets. Tricuspid Valve * Normal tricuspid valve structure. * No tricuspid stenosis. * Trace tricuspid regurgitation. * No evidence of pulmonary hypertension. Pulmonic Valve * Pulmonic valve is not well visualized. * No pulmonic regurgitation. Aorta * Normally sized aortic root. Pericardium * The pericardium appears normal. IVC * Normal IVC dimensions and inspiratory collapse. Pulmonary Artery * Normal visualized portions of the main pulmonary artery. Consult Discharge Plan - Plan Referrals: Jennifer Bob [Primary Care Provider] - (1) Cellulitis Qualifiers: Site of cellulitis: extremity Site of cellulitis of extremity: upper extremity Laterality: unspecified laterality Qualified Code(s): L03.119 - Cellulitis of unspecified part of limb
[2019-01-17 12:39] LABS: Potassium 3.9 mEq/L (3.5-5.1)
[2019-01-17] MEDS ORDERED: Aminoglycoside Consult 1 EACH MC ONE (15:38)
[2019-01-17] MEDS: Cefepime HCl 2,000 MG in Water for inj. (sterile) 20 ML IVP SCH (17:38)
[2019-01-17] MEDS: Melatonin 3 MG TABLET PO SCH (20:30)
[2019-01-17] MEDS: Nicotine 21 MG PATCH.TD24 TD SCH (20:30)
[2019-01-18] MEDS: Ketorolac 30 MG/ML VIAL IVP PRN ×2 (00:32→06:28)
[2019-01-18] MEDS: Acetaminophen 325 MG TABLET PO SCH ×4 (00:38→18:29)
[2019-01-18] MEDS: Cefepime HCl 2,000 MG in Water for inj. (sterile) 20 ML IVP SCH (05:05)
[2019-01-18] MEDS: *HR* Heparin 5,000 UNIT/ML VIAL SQ SCH ×3 (05:09→20:58)
[2019-01-18] MEDS: Ondansetron 4 MG/2 ML VIAL IVP PRN ×2 (06:28→21:01)
[2019-01-18] MEDS: *HR* Buprenorphine HCl 8 MG TAB.SUBL SL SCH (08:03)
[2019-01-18] MEDS ORDERED: *HR* Buprenorphine HCl 8 MG TAB.SUBL SL ONE (10:47)
[2019-01-18] MEDS: *HR* Promethazine 25 MG/ML VIAL IVP PRN (11:12)
[2019-01-18] MEDS: levoFLOXacin 750 MG TABLET PO SCH (11:13)
--- NOTE | 2019-01-18 15:48 | Internal Med Progress Note ---
Hospitalist Progress Note - Encounter Date of Encounter: 01/18/19 Time of Encounter: 14:00 - Subjective Interval History: No acute events overnight. No significant discomfort over bilateral UEs. Due to his R tibia fracture and NWB, he is not able to care for himself well resulting in multiple falls thereafter. Wants to explore the possibility of SNF placement while R LE fracture is healed. - Exam Vitals: Temp Pulse Resp BP Pulse Ox 97.5 F L 60 15 127/74 96 01/18/19 15:10 01/18/19 15:10 01/18/19 15:10 01/18/19 15:10 01/18/19 15:10 Exam: General: In no acute distress. unkempt Respiratory exam: CTAB. no accessory muscle use, rales, rhonchi, wheezes Cardiovascular exam: RRR, +S1, +S2. no murmur, gallop, rubs. GI/Abdominal exam: Non-tender, Non-distended, normal bowel sounds, soft, no peritoneal signs. Extremities exam: R LE in cast. B/L UEs with multiple erythematous areas a/w induration. Ulceration noted on Lt forearm without any discharge. No drainage Neurological exam: CN II-XII intact, AO X3, no focal deficits. - Assessment and Plan (1) Cellulitis Current Visit: Yes Status: Acute (2) Current nicotine use Current Visit: No Status: Acute (3) Methamphetamine abuse Current Visit: No Status: Acute (4) Heroin abuse Current Visit: No Status: Acute (5) DVT prophylaxis Current Visit: No Status: Acute - Summary of Assessment and Plan Summary of Assessment and Plan: Acute Abscess and cellulitis with foreign body in both UEs Chronic current IVDU Plan - wound culture from L UE came back +ve for Serratia marcescens, Enterobacter cloacae, S. aureus. Abx changed to levaquin based on sensitivity and there is now 4th organism (GPC) which is growing. Will follow up on thesensivity for the 4th organism. Surgery input appreciated, not for surgical intervention or removal of foreign body. - Follow up on final blood culture results - continue home dose of suboxone. c/w toradol for pain control - sc heparin for dvt ppx. 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 Will attempt to find ECF placement for him. Discussed during case management round - Time Spent with Patient Total time spent is greater than 50% in coordination of care (as documented) at patient's floor/unit and/or counseling patient: 25 - 35 minutes Plan of Care Discussed with: case management Internal Medicine: Result - Labs CBC & Chem 7: 01/17/19 03:20 01/17/19 10:40 - ABG Interpretation ABG results: PT/INR, D-dimer PT 11.8 Seconds (9.4-12.1) 01/16/19 07:46 Consult Discharge Plan - Plan Referrals: Jennifer Bob [Primary Care Provider] - Prescriptions: levoFLOXacin [Levaquin] 750 mg PO DAILY 10 Days #10 tablet Nicotine Patch [Nicoderm] 21 mg TD Q24H #21 patch.[email or web address] (1) Cellulitis Qualifiers: Site of cellulitis: extremity Site of cellulitis of extremity: upper extremity Laterality: unspecified laterality Qualified Code(s): L03.119 - C ellulitis of unspecified part of limb
[2019-01-18] MEDS: Nicotine 21 MG PATCH.TD24 TD SCH (20:57)
[2019-01-18] MEDS: Melatonin 3 MG TABLET PO SCH (20:57)
[2019-01-19] MEDS: Acetaminophen 325 MG TABLET PO SCH ×4 (00:20→17:13)
[2019-01-19] MEDS: Ketorolac 30 MG/ML VIAL IVP PRN ×4 (00:20→20:52)
[2019-01-19 04:15] LABS: Basophils # 0.1 K/mcL (0.0-0.2); Basophils % 0.9 %; Eosinophils # 0.2 K/mcL (0.0-0.6); Hematocrit 37.1 % (37.5-50.1); Hemoglobin 12.2 g/dL (12.9-16.9); Immature Granulocytes % 0.2 % (0-4); Lymphocytes # 2.4 K/mcL (0.6-4.6); Lymphocytes % 44.8 %; Mean Corpuscular HGB Conc 32.9 g/dL (31.6-35.5); Mean Corpuscular Volume 85.3 fL (83.0-100.0); Mean Platelet Volume 9.1 fL (9.4-12.4); Monocytes # 0.5 K/mcL (0.0-1.3); Monocytes % 9.3 %; Neutrophils # 2.3 K/mcL (1.6-8.9); Platelet Count 348 K/mcL (140-400); Red Blood Count 4.35 M/mcL (4.19-5.50); Red Cell Distribution Width 13.4 % (11.5-14.5); Segmented Neutrophils % 41.8 %; White Blood Count 5.4 K/mcL (4.3-11.1)
[2019-01-19 04:34] LABS: BUN/Creatinine Ratio 25 (6-26); Blood Urea Nitrogen 17 mg/dL (6-20); Calcium 9.1 mg/dL (8.6-10.3); Carbon Dioxide 26 mEq/L (23-29); Chloride 102 mEq/L (98-107); Glucose 118 mg/dL (70-105); Osmolality,Calculated 281 (280-300); Sodium 134 mEq/L (136-145); eGFR For African Americans > 60 (> 60); eGFR For Non-African Americans > 60 (> 60)
[2019-01-19] MEDS: *HR* Heparin 5,000 UNIT/ML VIAL SQ SCH ×3 (06:07→20:53)
[2019-01-19] MEDS: *HR* Buprenorphine HCl 8 MG TAB.SUBL SL SCH (08:29)
[2019-01-19] MEDS: *HR* Promethazine 25 MG/ML VIAL IVP PRN ×3 (08:30→20:52)
[2019-01-19] MEDS: levoFLOXacin 750 MG TABLET PO SCH (08:30)
[2019-01-19] MEDS: Ondansetron 4 MG/2 ML VIAL IVP PRN (12:23)
--- NOTE | 2019-01-19 17:54 | Internal Med Progress Note ---
Hospitalist Progress Note - Encounter Date of Encounter: 01/19/19 Time of Encounter: 12:00 - Subjective Interval History: no acute events overnight, reports that his UEs feel much better. No fever/chills or N/V - Exam Vitals: Temp Pulse Resp BP Pulse Ox 97.9 F 65 17 122/74 98 01/19/19 15:53 01/19/19 15:53 01/19/19 15:53 01/19/19 15:53 01/19/19 15:53 Exam: General: In no acute distress. unkempt Respiratory exam: CTAB. no accessory muscle use, rales, rhonchi, wheezes Cardiovascular exam: RRR, +S1, +S2. no murmur, gallop, rubs. GI/Abdominal exam: Non-tender, Non-distended, normal bowel sounds, soft, no peritoneal signs. Extremities exam: R LE in cast. B/L UEs with multiple erythematous areas a/w induration. Ulceration noted on Lt forearm without any discharge. No drainage Neurological exam: CN II-XII intact, AO X3, no focal deficits. - Assessment and Plan (1) Cellulitis Current Visit: Yes Status: Acute (2) Current nicotine use Current Visit: No Status: Acute (3) Methamphetamine abuse Current Visit: No Status: Acute (4) Heroin abuse Current Visit: No Status: Acute (5) DVT prophylaxis Current Visit: No Status: Acute - Summary of Assessment and Plan Summary of Assessment and Plan: Acute Abscess and cellulitis with foreign body in both UEs Chronic current IVDU Plan - wound culture from L UE came back +ve for Serratia marcescens, Enterobacter cloacae, S. aureus. It also came back positive for the 4th organism (Streptococcus anginosus) sensitive to levaquin. Will continue PO Levaquin and aim for a total of 14 day course. Surgery input appreciated, not for surgical intervention or removal of foreign body. - Follow up on final blood culture results - continue home dose of suboxone. c/w toradol for pain control - sc heparin for dvt ppx. - PT/OT recommended [facility] care facility while his R LE fracture is healed. ECF accepted the pt, now waiting for insurance authorization. Discussed during case management round - Time Spent with Patient Total time spent is greater than 50% in coordination of care (as documented) at patient's floor/unit and/or counseling patient: 25 - 35 minutes Plan of Care Discussed with: case management Internal Medicine: Result - Labs CBC & Chem 7: 01/19/19 03:30 01/19/19 03:30 Labs: Short CBC 01/19/19 Range/Units 03:30 WBC 5.4 (4.3-11.1) K/mcL Hgb 12.2 L (12.9-16.9) g/dL Hct 37.1 L (37.5-50.1) % Plt Count 348 (140-400) K/mcL Neutrophils # 2.3 (1.6-8.9) K/mcL BMP 01/19/19 03:30 Sodium 134 L Potassium 4.0 Chloride 102 Carbon Dioxide 26 BUN 17 Creatinine 0.67 L Glucose 118 H Calcium 9.1 - ABG Interpretation ABG results: PT/INR, D-dimer PT 11.8 Seconds (9.4-12.1) 01/16/19 07:46 Consult Discharge Plan - Plan Referrals: Jennifer Bob [Primary Care Provider] - Prescriptions: levoFLOXacin [Levaquin] 750 mg PO DAILY 10 Days #10 tablet Nicotine Patch [Nicoderm] 21 mg TD Q24H #21 patch.[email or web address] (1) Cellulitis Qualifiers: Site of cellulitis: extremity Site of cellulitis of extremity: upper extremity Laterality: unspecified laterality Qualified Code(s): L03.119 - Cellulitis of unspecified part of limb
[2019-01-19] MEDS: Nicotine 21 MG PATCH.TD24 TD SCH (20:53)
[2019-01-19] MEDS: Melatonin 3 MG TABLET PO SCH (20:53)
[2019-01-20] MEDS: Acetaminophen 325 MG TABLET PO SCH ×4 (00:14→19:02)
[2019-01-20] MEDS: *HR* Heparin 5,000 UNIT/ML VIAL SQ SCH ×3 (05:33→21:35)
[2019-01-20] MEDS: Ketorolac 30 MG/ML VIAL IVP PRN ×3 (06:12→19:02)
[2019-01-20] MEDS: *HR* Promethazine 25 MG/ML VIAL IVP PRN ×3 (06:12→19:02)
[2019-01-20] MEDS: *HR* Buprenorphine HCl 8 MG TAB.SUBL SL SCH (09:11)
[2019-01-20] MEDS: levoFLOXacin 750 MG TABLET PO SCH (09:11)
[2019-01-20] MEDS: Ondansetron 4 MG/2 ML VIAL IVP PRN ×2 (09:12→21:35)
--- NOTE | 2019-01-20 12:29 | Internal Med Progress Note ---
Hospitalist Progress Note - Encounter Date of Encounter: 01/20/19 Time of Encounter: 09:45 - Subjective Interval History: No acute events overnight. No new complaints regarding his UEs. No fever/chills - Exam Vitals: Temp Pulse Resp BP Pulse Ox 97.6 F 72 14 125/80 98 01/20/19 11:31 01/20/19 11:31 01/20/19 11:31 01/20/19 11:31 01/20/19 11:31 Exam: General: In no acute distress. unkempt Respiratory exam: CTAB. no accessory muscle use, rales, rhonchi, wheezes Cardiovascular exam: RRR, +S1, +S2. no murmur, gallop, rubs. GI/Abdominal exam: Non-tender, Non-distended, normal bowel sounds, soft, no peritoneal signs. Extremities exam: R LE in cast. B/L UEs with multiple erythematous areas a/w induration. Ulceration noted on Lt forearm without any discharge. No drainage Neurological exam: CN II-XII intact, AO X3, no focal deficits. - Assessment and Plan (1) Cellulitis Current Visit: Yes Status: Acute (2) Current nicotine use Current Visit: No Status: Acute (3) Methamphetamine abuse Current Visit: No Status: Acute (4) Heroin abuse Current Visit: No Status: Acute (5) DVT prophylaxis Current Visit: No Status: Acute - Summary of Assessment and Plan Summary of Assessment and Plan: Acute Abscess and cellulitis with foreign body in both UEs R tibial shaft spiral fracture Chronic current IVDU Plan - wound culture from L UE came back +ve for Serratia marcescens, Enterobacter cloacae, S. aureus. It also came back positive for the 4th organism (Streptococcus anginosus) sensitive to levaquin. Will continue PO Levaquin and aim for a total of 14 day course. Surgery input appreciated, not for surgical intervention or removal of foreign body. - Follow up on final blood culture results - continue home dose of suboxone. c/w toradol for pain control - sc heparin for dvt ppx. - PT/OT recommended nursing home care facility while his R LE fracture is healed. ECF accepted the pt, now waiting for insurance authorization. - Time Spent with Patient Total time spent is greater than 50% in coordination of care (as documented) at patient's floor/unit and/or counseling patient: less than 15 minutes Plan of Care Discussed with: nurse Internal Medicine: Result - Labs CBC & Chem 7: 01/19/19 03:30 01/19/19 03:30 - ABG Interpretation ABG results: PT/INR, D-dimer PT 11.8 Seconds (9.4-12.1) 01/16/19 07:46 Consult Discharge Plan - Plan Referrals: Jennifer Bob [Primary Care Provider] - Prescriptions: levoFLOXacin [Levaquin] 750 mg PO DAILY 10 Days #10 tablet Nicotine Patch [Nicoderm] 21 mg TD Q24H #21 patch.[email or web address] (1) Cellulitis Qualifiers: Site of cellulitis: extremity Site of cellulitis of extremity: upper extre mity Laterality: unspecified laterality Qualified Code(s): L03.119 - Cellulitis of unspecified part of limb
[2019-01-20] MEDS: Melatonin 3 MG TABLET PO SCH (21:35)
[2019-01-20] MEDS: Nicotine 21 MG PATCH.TD24 TD SCH (21:36)
[2019-01-21] MEDS: Acetaminophen 325 MG TABLET PO SCH ×4 (00:31→19:03)
[2019-01-21] MEDS: Ketorolac 30 MG/ML VIAL IVP PRN ×4 (01:43→21:22)
[2019-01-21] MEDS: *HR* Promethazine 25 MG/ML VIAL IVP PRN ×4 (01:43→21:22)
[2019-01-21] MEDS: *HR* Heparin 5,000 UNIT/ML VIAL SQ SCH ×3 (05:38→21:26)
[2019-01-21] MEDS: *HR* Buprenorphine HCl 8 MG TAB.SUBL SL SCH (08:47)
[2019-01-21] MEDS: levoFLOXacin 750 MG TABLET PO SCH (08:47)
--- NOTE | 2019-01-21 11:17 | Internal Med Progress Note ---
Hospitalist Progress Note - Encounter Date of Encounter: 01/21/19 Time of Encounter: 08:45 - Subjective Interval History: Feels that his upper extremities are coming closer to baseline. No fever/chills, chest pain, SOB, cough, or constipation - Exam Vitals: Temp Pulse Resp BP Pulse Ox 98.7 F 64 16 117/68 98 01/21/19 09:05 01/21/19 09:05 01/21/19 09:05 01/21/19 09:05 01/21/19 09:05 Exam: General: In no acute distress. unkempt Respiratory exam: CTAB. no accessory muscle use, rales, rhonchi, wheezes Cardiovascular exam: RRR, +S1, +S2. no murmur, gallop, rubs. GI/Abdominal exam: Non-tender, Non-distended, normal bowel sounds, soft, no peritoneal signs. Extremities exam: R LE in cast. B/L UEs with multiple erythematous areas a/w induration, improving. Ulceration noted on Lt forearm without any discharge. No drainage Neurological exam: CN II-XII intact, AO X3, no focal deficits. - Assessment and Plan (1) Cellulitis Current Visit: Yes Status: Acute (2) Fracture of tibial shaft, right, closed Current Visit: Yes Status: Acute (3) Current nicotine use Current Visit: No Status: Acute (4) Methamphetamine abuse Current Visit: No Status: Acute (5) Heroin abuse Current Visit: No Status: Acute (6) DVT prophylaxis Current Visit: No Status: Acute - Summary of Assessment and Plan Summary of Assessment and Plan: Acute Abscess and cellulitis with foreign body in both UEs R tibial shaft spiral fracture Chronic current IVDU Plan - wound culture from L UE came back +ve for Serratia marcescens, Enterobacter cloacae, S. aureus, and S. anginosus, all sensitive to levaquin. Will continue PO Levaquin and aim for a total of 14 day course (D7 today). Surgery input appreciated, not for surgical intervention or removal of foreign body. - final blood culture results -ve - continue home dose of suboxone. c/w toradol for pain control - sc heparin for dvt ppx. - PT/OT recommended [facility]ysterman care facility while his R LE fracture is healed. ECF accepted the pt, now waiting for insurance authorization. - Time Spent with Patient Total time spent is greater than 50% in coordination of care (as documented) at patient's floor/unit and/or counseling patient: less than 15 minutes Plan of Care Discussed with: nurse Internal Medicine: Result - Labs CBC & Chem 7: 01/19/19 03:30 01/19/19 03:30 - ABG Interpretation ABG results: PT/INR, D-dimer PT 11.8 Seconds (9.4-12.1) 01/16/19 07:46 Consult Discharge Plan - Plan Referrals: Jennifer Bob [Primary Care Provider] - Prescriptions: levoFLOXacin [Levaquin] 750 mg PO DAILY 10 Days #10 tablet Nicotine Patch [Nicoderm] 21 mg TD Q24H #21 patch.[email or web address] (1) Cellulitis Qualifiers: Site of cellulitis: extremity Site of cellulitis of extremity: upper extremity Laterality: unspecified laterality Qualified Code(s): L03.119 - Cellulitis of unspecified part of limb
[2019-01-21] MEDS: Ondansetron 4 MG/2 ML VIAL IVP PRN (12:40)
[2019-01-21] MEDS: Melatonin 3 MG TABLET PO SCH (21:20)
[2019-01-21] MEDS: Nicotine 21 MG PATCH.TD24 TD SCH (21:21)
[2019-01-22] MEDS: Acetaminophen 325 MG TABLET PO SCH ×3 (00:22→11:37)
[2019-01-22] MEDS: Ketorolac 30 MG/ML VIAL IVP PRN (05:19)
[2019-01-22] MEDS: *HR* Promethazine 25 MG/ML VIAL IVP PRN (05:20)
[2019-01-22] MEDS: *HR* Heparin 5,000 UNIT/ML VIAL SQ SCH ×2 (05:23→14:00)
[2019-01-22 07:37] VITALS: BP 102/65
[2019-01-22] MEDS: levoFLOXacin 750 MG TABLET PO SCH (08:04)
[2019-01-22] MEDS: Ondansetron 4 MG/2 ML VIAL IVP PRN (08:04)
[2019-01-22] MEDS: *HR* Buprenorphine HCl 8 MG TAB.SUBL SL SCH (08:04)
--- NOTE | 2019-01-22 10:34 | Discharge Summary ---
- NOTES TO OUTPATIENT PROVIDER Notes to Outpatient Provider: Follow up with PCP as outpatient Date of Encounter: 01/22/19 Time of Encounter: 07:45 - Discharge Diagnosis (1) Cellulitis Priority: Primary Status: Acute Qualifiers: Site of cellulitis: extremity Site of cellulitis of extremity: upper extremity Laterality: unspecified laterality Qualified Code(s): L03.119 - Cellulitis of unspecified part of limb (2) Fracture of tibial shaft, right, closed Priority: Secondary Status: Acute Qualifiers: Encounter type: subsequent encounter Fracture morphology: spiral Fracture alignment: nondisplaced Fracture healing: with routine healing Qualified Code(s): S82.244D - Nondisplaced spiral fracture of shaft of right tibia, subsequent encounter for closed fracture with routine healing (3) Current nicotine use Priority: Secondary Status: Acute (4) Methamphetamine abuse Priority: Secondary Status: Acute (5) Heroin abuse Priority: Secondary Status: Acute (6) DVT prophylaxis Priority: Secondary Status: Acute Hospital course: Mr. Alvares is a 38 year old male with hx of IVDU on suboxone, recent right tibial shaft fracture on NWB status, who was admitted for bilateral upper extremity cellulitis. There was a concern on possible abscess on radiological studies but surgery evaluated the patient and felt that the findings were more related to superficial thrombophlebitis/cellulitis (Pt had induration but no fluctuance). Wound culture was polymicrobial which were all sensitive to Levaquin and he will be discharged on a total 14 days of abx. He was willing to come off on Suboxone treatment and try tramadol for pain at [facility]. He will need to follow-up with orthopedics as outpatient for his fracture. Discharge discussed with: patient, nurse, case management - Time Spent with Patient Total time spent providing and/or coordinating discharge services: 32 mins - Discharge Medications Prescriptions: New levoFLOXacin [Levaquin] 750 mg PO DAILY 10 Days #10 tablet Nicotine Patch [Nicoderm] 21 mg TD Q24H #21 patch.td24 Tramadol HCl [Ultram] 50 mg PO QID PRN 7 Days #28 tab PRN Reason: Pain Continued Ibuprofen [Ibu] 600 mg PO Q6HR PRN PRN Reason: Pain Discontinued Buprenorphine HCl/Naloxone HCl [Suboxone 8 mg-2 mg Sl Film] 2 each SL DAILY Home Medications: Ibuprofen [Ibu] 600 mg PO Q6HR PRN 01/15/19 [History] Nicotine Patch [Nicoderm] 21 mg TD Q24H #21 patch.td24 01/18/19 [Rx] levoFLOXacin [Levaquin] 750 mg PO DAILY 10 Days #10 tablet 01/18/19 [Rx] Tramadol HCl [Ultram] 50 mg PO QID PRN 7 Days #28 tab 01/22/19 [Rx] Allergies/Adverse Reactions: Allergy/AdvReac Type Severity Reaction Status Date / Time No Known Allergies Allergy Verified 12/22/18 19:26 Date of admission: 01/17/19 14:51 Primary care physician: Jennifer Bob Consults: 01/15/19 20:38 Consult to Surgery [CONS] Stat Consulting Provider: Acute Care Surgery Reason for Consult: abscess drainage, retained foreign bodies Call Completed: Yes 01/15/19 23:24 Consult to Medical Administrative Assistant [CONS] Routine Reason for SW Consult: Patient would like to discuss discharge planning. Pt mentioned half-way? 01/16/19 09:29 Consult to Invasive Line Access Team [CONS] Routine Reason for Consult: Poor vasular access Line Type: EPIV 01/16/19 14:33 Consult to Physical Therapy [CONS] Routine Comment: Evaluate, develop and implement POC Reason for Consult: per patient has a broken fibula, would like rehab placement, in cast and has not had surgical intervention. Does patient have active BEDREST order?: No Is patient medically & hemodynamically stable?: Yes Patient assessed for mobility or mobilized this visit?: No 01/16/19 14:34 Consult to Occupational Therapy [CONS] Routine Comment: Evaluate, develop and implement POC Reason for Consult: per patient has a broken fibula, would like rehab placement, in cast and has not had surgical intervention. Does patient have active BEDREST order?: No Is patient medically & hemodynamically stable?: Yes Patient assessed for mobility or mobilized this visit?: No - Constitutional Vitals: Temp Pulse Resp BP Pulse Ox 97.7 F 61 16 102/65 98 01/22/19 07:31 01/22/19 07:31 01/22/19 07:31 01/22/19 07:31 01/22/19 07:31 General appearance: Present: A&O X 3 Exam: General: In no acute distress. unkempt Respiratory exam: CTAB. no accessory muscle use, rales, rhonchi, wheezes Cardiovascular exam: RRR, +S1, +S2. no murmur, gallop, rubs. GI/Abdominal exam: Non-tender, Non-distended, normal bowel sounds, soft, no peritoneal signs. Extremities exam: R LE in cast. B/L UEs with multiple erythematous areas a/w induration, improving. Ulceration noted on Lt forearm without any discharge. No drainage Neurological exam: CN II-XII intact, AO X3, no focal deficits. - Patient Status Disposition: Transfer SNF Condition: Good Overall status at discharge: patient is progressing back to baseline - Discharge Instructions Instructions: Cellulitis (DC) Follow Up With: Jennifer Bob [Primary Care Provider] - Brown Kim MD [Partnered Physician] - - Diet and Activity Activity: as per physical therapy Diet: regular diet
--- NOTE | 2019-01-22 10:39 | Physician Discharge Referral ---
ExtendedCare Referral Info Institutional Level of Care: Skilled - Diagnosis (1) Cellulitis Priority: Primary Status: Acute (2) Fracture of tibial shaft, right, closed Priority: Secondary Status: Acute (3) Current nicotine use Priority: Secondary Status: Acute (4) Methamphetamine abuse Priority: Secondary Status: Acute (5) Heroin abuse Priority: Secondary Status: Acute (6) DVT prophylaxis Priority: Secondary Status: Acute Prognosis: Good - Transfer Medications Prescriptions: levoFLOXacin [Levaquin] 750 mg PO DAILY 10 Days #10 tablet Nicotine Patch [Nicoderm] 21 mg TD Q24H #21 patch.td24 Tramadol HCl [Ultram] 50 mg PO QID PRN 7 Days #28 tab PRN Reason: Pain Home Medications: Ibuprofen [Ibu] 600 mg PO Q6HR PRN 01/15/19 [History] Nicotine Patch [Nicoderm] 21 mg TD Q24H #21 patch.td24 01/18/19 [Rx] levoFLOXacin [Levaquin] 750 mg PO DAILY 10 Days #10 tablet 01/18/19 [Rx] Tramadol HCl [Ultram] 50 mg PO QID PRN 7 Days #28 tab 01/22/19 [Rx] Allergies/Adverse Reactions: Allergy/AdvReac Type Severity Reaction Status Date / Time No Known Allergies Allergy Verified 12/22/18 19:26 - Respiratory Orders Smoking Cessation: Smoking cessation has been advised. For more information, call the [place] Tobacco Quit Line at 4-991-LEHS-NOW. - Rehabiliation Orders Rehab Orders: Evaluation for Physical Therapy, Evaluation for Occupational Therapy - Diet Orders Regular CERTIFICATION: I certify that the transfer of the above named patient to an Extended Care Facility is necessary for the continuing treatment of the diagnosis listed. The above information is true and accurate reflection of patient's current condition. Confidential - Redisclosure prohibited without a patient's written consent.
--- NOTE | 2019-01-22 14:07 | Event Note ---
Date of Encounter: 01/22/19 Time of Encounter: 13:00 Patient seen while inpatient after contacting our office re: missing appt. Xrays ordered and reviewed demonstrating slight worsening of displacement since last examination. On exam patient A&Ox3. Sitting in wheelchair. Short leg cast to right lower leg that is very loose. Patient admits to getting cast wet. No skin disruption noted at cast edges. Sensation intact. Cap refill <2 sec. Continue nonweightbearing to the right lower extremity. Cast care with protection from getting wet and do not allow anything to be stuck into cast. Patient will have cast change today prior to discharge and follow up in 1 week outpatient with repeat xrays Discussed with Dr. Kee
== END 2019-01-22 15:39 | DRG 383 ==
LOC: EMEROOARM 15:33 → 3ANU 15:33 → SUATTDRO 21:26 → 3ANU 21:46
PROVIDERS: ADMIT Internal Medicine Nephrology; ATTEND Internal Medicine

== ENCOUNTER 2019-05-26 11:34 | Observation (INO) ==
[2019-05-26 12:09] LABS: Basophils # 0.1 K/mcL (0.0-0.2); Basophils % 1.1 %; Eosinophils # 0.2 K/mcL (0.0-0.6); Hematocrit 38.3 % (37.5-50.1); Hemoglobin 13.2 g/dL (12.9-16.9); Immature Granulocytes % 0.7 % (0-4); Lymphocytes # 2.4 K/mcL (0.6-4.6); Lymphocytes % 31.1 %; Mean Corpuscular HGB Conc 34.5 g/dL (31.6-35.5); Mean Corpuscular Hemoglobin 28.9 pg (28.0-33.3); Mean Corpuscular Volume 83.8 fL (83.0-100.0); Monocytes # 0.8 K/mcL (0.0-1.3); Monocytes % 10.2 %; Neutrophils # 4.2 K/mcL (1.6-8.9); Platelet Count 448 K/mcL (140-400); Red Blood Count 4.57 M/mcL (4.19-5.50); Red Cell Distribution Width 14.9 % (11.5-14.5); Segmented Neutrophils % 54.9 %; White Blood Count 7.6 K/mcL (4.3-11.1)
[2019-05-26 12:15] LABS: Acetaminophen < 10 mcg/mL (10-20); Alanine Aminotransferase 67 Units/L (7-52); Albumin 3.9 g/dL (3.5-5.7); Albumin/Globulin Ratio 0.8 (1.1-2.2); Alkaline Phosphatase 141 Units/L (34-104); Aspartate Amino Transferase 41 Units/L (13-39); BUN/Creatinine Ratio 29 (6-26); Bilirubin,Direct 0.2 mg/dL (0.0-0.2); Bilirubin,Indirect 0.2 mg/dL (0.0-1.0); Bilirubin,Total 0.4 mg/dL (0.3-1.0); Blood Urea Nitrogen 20 mg/dL (6-20); Calcium 9.4 mg/dL (8.6-10.3); Carbon Dioxide 22 mEq/L (23-29); Chloride 106 mEq/L (98-107); Ethanol < 10 mg/dL (Less than 10); Globulin 4.9 g/dL (2.4-3.5); Glucose 113 mg/dL (70-105); Osmolality,Calculated 287 (280-300); Potassium 4.5 mEq/L (3.5-5.1); Salicylate < 2.5 mg/dL (15.0-30.0); Sodium 137 mEq/L (136-145); Total Protein 8.8 g/dL (6.4-8.9); eGFR For African Americans > 60 (> 60); eGFR For Non-African Americans > 60 (> 60)
[2019-05-26 12:31] LABS: Amphetamine Screen,Urine Negative ng/mL (Cutoff=1000); Barbiturate Screen,Urine Negative ng/mL (Cutoff=200); Benzodiazepines Screen,Urine Negative ng/mL (Cutoff=200); Cannabinoid Screen,Urine Positive ng/mL (Cutoff = 50); Cocaine Screen,Urine Negative ng/mL (Cutoff= 300); Opiate Screen,Urine Negative ng/mL (Cutoff=300); Phencyclidine Screen,Urine Negative ng/mL (Cutoff=25)
[2019-05-26] MEDS ORDERED: Mag Hydrox/Al Hydrox/Simeth 30 ML UDC PO PRN (15:16)
[2019-05-26] MEDS ORDERED: *HR* LORazepam 1 MG TABLET PO PRN (15:16)
[2019-05-26] MEDS ORDERED: Haloperidol Lactate 5 MG/ML VIAL IM PRN (15:16)
[2019-05-26] MEDS ORDERED: Acetaminophen 325 MG TABLET PO PRN (15:16)
[2019-05-26] MEDS ORDERED: *HR* LORazepam 2 MG/ML VIAL IM PRN (15:16)
[2019-05-26] MEDS ORDERED: MOM Conc 10 ML UD.LIQ PO PRN (15:16)
[2019-05-26] MEDS: Nicotine 21 MG PATCH.TD24 TD SCH (17:59)
[2019-05-26] MEDS ORDERED: Ondansetron ODT 4 MG TAB.RAPDIS SL PRN (20:58)
[2019-05-26] MEDS: hydrOXYzine pamoate 25 MG CAPSULE PO PRN (21:24)
[2019-05-26] MEDS: traZODone 50 MG TABLET PO PRN (21:24)
[2019-05-26] MEDS: Ibuprofen 400 MG TABLET PO PRN (21:24)
[2019-05-27] MEDS: Nicotine 21 MG PATCH.TD24 TD SCH (09:05)
[2019-05-27] MEDS: Ibuprofen 400 MG TABLET PO PRN ×3 (09:05→20:20)
[2019-05-27] MEDS: Baclofen 10 MG TABLET PO PRN ×3 (09:22→20:20)
[2019-05-27] MEDS: cloNIDine HCl 0.1 MG TABLET PO PRN ×2 (09:22→20:20)
[2019-05-27] MEDS: hydrOXYzine pamoate 25 MG CAPSULE PO PRN ×2 (12:59→20:20)
[2019-05-27] MEDS: traZODone 50 MG TABLET PO PRN (20:20)
[2019-05-28] MEDS: Baclofen 10 MG TABLET PO PRN (09:13)
[2019-05-28] MEDS: Ibuprofen 400 MG TABLET PO PRN ×2 (09:13→13:27)
[2019-05-28] MEDS: Nicotine 21 MG PATCH.TD24 TD SCH (09:14)
[2019-05-28 09:34] VITALS: BP 139/86
== END 2019-05-28 15:05 | disposition home or self-care (01) ==
LOC: EMEROOARM 11:34 → 1ANU 11:34
PROVIDERS: ADMIT Psychiatry & Neurology Psychiatry; ATTEND Psychiatry & Neurology Psychiatry

== ENCOUNTER 2020-02-02 00:43 | Observation (INO) ==
[2020-02-02] MEDS ORDERED: Isovue-370 500 ML BOTTLE IVP ONE ×2 (01:09→09:51)
[2020-02-02 02:28] LABS: White Blood Count 8.4 K/mcL (4.3-11.1)
[2020-02-02 02:29] LABS: Basophils # 0.1 K/mcL (0.0-0.2); Basophils % 0.7 %; Eosinophils # 0.4 K/mcL (0.0-0.6); Hemoglobin 12.3 g/dL (12.9-16.9); Immature Granulocytes % 0.4 % (0-4); Lymphocytes # 1.5 K/mcL (0.6-4.6); Lymphocytes % 18.2 %; Mean Corpuscular HGB Conc 32.4 g/dL (31.6-35.5); Mean Corpuscular Volume 83.3 fL (83.0-100.0); Mean Platelet Volume 8.7 fL (9.4-12.4); Monocytes # 0.8 K/mcL (0.0-1.3); Monocytes % 9.1 %; Neutrophils # 5.6 K/mcL (1.6-8.9); Platelet Count 467 K/mcL (140-400); Red Blood Count 4.56 M/mcL (4.19-5.50); Red Cell Distribution Width 13.2 % (11.5-14.5); Segmented Neutrophils % 66.6 %
[2020-02-02] MEDS ORDERED: Piperacillin/Tazobactam 3.375 GM in 0.9 % Sodium Chloride Mini Bag 100 ML IVPB ONE (02:46)
[2020-02-02 02:52] LABS: Alanine Aminotransferase 21 Units/L (7-52); Albumin 3.3 g/dL (3.5-5.7); Albumin/Globulin Ratio 0.6 (1.1-2.2); Alkaline Phosphatase 96 Units/L (34-104); Aspartate Amino Transferase 26 Units/L (13-39); BUN/Creatinine Ratio 16 (6-26); Blood Urea Nitrogen 12 mg/dL (6-20); C-Reactive Protein 85 mg/L (Less than 10); Calcium 8.9 mg/dL (8.6-10.3); Carbon Dioxide 25 mEq/L (23-29); Chloride 103 mEq/L (98-107); Globulin 5.3 g/dL (2.4-3.5); Glucose 93 mg/dL (70-105); Osmolality,Calculated 287 (280-300); Potassium 3.3 mEq/L (3.5-5.1); Sodium 139 mEq/L (136-145); Total Protein 8.6 g/dL (6.4-8.9); Troponin I < 0.03 ng/mL (< 0.04); eGFR For African Americans > 60 (> 60); eGFR For Non-African Americans > 60 (> 60)
[2020-02-02] MEDS ORDERED: Vancomycin 2,000 MG/520 ML IV.SOLN IVPB ONE (03:00)
[2020-02-02 03:07] LABS: Bilirubin,Indirect 0.3 mg/dL (0.0-1.0); Bilirubin,Total 0.3 mg/dL (0.3-1.0)
[2020-02-02 03:17] LABS: Bilirubin,Urine Negative (Negative); Blood,Urine Negative (Negative); Clarity,Urine Turbid (Clear); Color,Urine Yellow (Yellow); Glucose,Urine (UA) Normal (Normal); Hyaline Casts,Urine Moderate per lpf (None Seen); Ketones,Urine Negative (Negative); Leukocyte Esterase,Urine Moderate (Negative); Mucus,Urine Many per lpf (None-Few); Nitrite,Urine Negative (Negative); Protein,Urine 70 mg/dL (Neg-Trace); Specific Gravity,Urine > 1.030 (1.010-1.025); Squamous Epithelial Cell,Urine Few per hpf (None-Few); WBC,Urine 30-50 per hpf (0-3)
[2020-02-02] MEDS ORDERED: Acetaminophen IV 500 MG/50 ML INFUS..BTL IVPB ONE (04:43)
[2020-02-02] MEDS ORDERED: Naloxone 0.4 MG/ML INJ IVP PRN (05:36)
[2020-02-02] MEDS ORDERED: Ondansetron 4 MG/2 ML VIAL IVP PRN (05:36)
[2020-02-02] MEDS ORDERED: Acetaminophen 325 MG TABLET PO PRN (06:00)
[2020-02-02] MEDS ORDERED: Perflutren Lipid Microsphere 1.3 ML in 0.9 % Sodium Chloride 8.7 ML IVP PRN (06:24)
[2020-02-02 06:38] LABS: Adenovirus Not Detected (Not Detect); Coronavirus 229E Not Detected (Not Detect); Coronavirus HKU1 Not Detected (Not Detect); Coronavirus NL63 Not Detected (Not Detect); Coronavirus OC43 Not Detected (Not Detect)
[2020-02-02 06:39] LABS: Bordetella Pertussis Not Detected (Not Detect); Chlamydophila pneumoniae Not Detected (Not Detect); Human Metapneumovirus Not Detected (Not Detect); Human Rhinovirus/Enterovirus Not Detected (Not Detect); Influenza A Subtype 2009 H1 Not Detected (Not Detect); Influenza B Not Detected (Not Detect); Mycoplasma pneumoniae Not Detected (Not Detect); Parainfluenza Virus 1 Not Detected (Not Detect); Parainfluenza Virus 2 Not Detected (Not Detect); Parainfluenza Virus 3 Not Detected (Not Detect); Parainfluenza Virus 4 Not Detected (Not Detect); Respiratory Syncytial Virus Not Detected (Not Detect)
[2020-02-02] MEDS: Piperacillin/Tazobactam 3.375 GM in 0.9 % Sodium Chloride Mini Bag 100 ML IVPB SCH ×2 (11:39→18:50)
[2020-02-02] MEDS: 0.9 % Sodium Chloride 1,000 ML IVC SCH ×2 (11:41→20:07)
[2020-02-02] MEDS: *HR* OxyCODONE Immed Rel 5 MG TABLET PO PRN ×2 (14:26→20:08)
[2020-02-02] MEDS: Vancomycin 1,500 MG/265 ML IV.SOLN IVPB SCH (15:45)
[2020-02-03] MEDS: Vancomycin 1,500 MG/265 ML IV.SOLN IVPB SCH (03:18)
[2020-02-03] MEDS: *HR* OxyCODONE Immed Rel 5 MG TABLET PO PRN ×3 (03:28→16:33)
[2020-02-03] MEDS: Piperacillin/Tazobactam 3.375 GM in 0.9 % Sodium Chloride Mini Bag 100 ML IVPB SCH ×3 (05:26→21:41)
[2020-02-03 06:50] LABS: Basophils % 0.9 %; Mean Platelet Volume 9.7 fL (9.4-12.4)
[2020-02-03 06:52] LABS: Basophils # 0.1 K/mcL (0.0-0.2); Eosinophils # 0.4 K/mcL (0.0-0.6); Eosinophils % 4.7 %; Hematocrit 35.6 % (37.5-50.1); Hemoglobin 11.5 g/dL (12.9-16.9); Immature Granulocytes % 2.4 % (0-4); Immature Platelets 3.5 % (1.1-6.1); Lymphocytes # 1.7 K/mcL (0.6-4.6); Lymphocytes % 22.8 %; Mean Corpuscular HGB Conc 32.3 g/dL (31.6-35.5); Mean Corpuscular Hemoglobin 26.9 pg (28.0-33.3); Mean Corpuscular Volume 83.4 fL (83.0-100.0); Monocytes # 0.7 K/mcL (0.0-1.3); Monocytes % 8.8 %; Neutrophils # 4.5 K/mcL (1.6-8.9); Nucleated Red Blood Cells 0.4 /100 WBC (0); Platelet Count 328 K/mcL (140-400); Red Blood Count 4.27 M/mcL (4.19-5.50); Red Cell Distribution Width 13.3 % (11.5-14.5); Segmented Neutrophils % 60.4 %; White Blood Count 7.4 K/mcL (4.3-11.1)
[2020-02-03 06:55] LABS: INR 1.2; Prothrombin Time 14.1 Seconds (9.4-12.1)
[2020-02-03] MEDS ORDERED: *HR* Midazolam HCl 2 MG/2 ML VIAL ONE (07:15)
[2020-02-03] MEDS ORDERED: *HR* FentaNYL (PF) 100 MCG/2 ML VIAL ONE ×3 (07:15→08:20)
[2020-02-03] MEDS ORDERED: *HR* Propofol 200 MG/20 ML VIAL IVP ONE ×2 (07:15→07:25)
[2020-02-03] MEDS ORDERED: Lidocaine -MPF 2% 2 ML VIAL ONE ×2 (07:18→07:20)
[2020-02-03] MEDS ORDERED: Ondansetron 4 MG/2 ML VIAL ONE (07:20)
[2020-02-03 07:30] LABS: Alanine Aminotransferase 17 Units/L (7-52); Albumin 2.7 g/dL (3.5-5.7); Albumin/Globulin Ratio 0.6 (1.1-2.2); Alkaline Phosphatase 79 Units/L (34-104); Aspartate Amino Transferase 23 Units/L (13-39); BUN/Creatinine Ratio 10 (6-26); Bilirubin,Total 0.4 mg/dL (0.3-1.0); Blood Urea Nitrogen 6 mg/dL (6-20); Calcium 8.6 mg/dL (8.6-10.3); Carbon Dioxide 18 mEq/L (23-29); Chloride 111 mEq/L (98-107); Chol/HDL Ratio 6.1 (0-4.9); Cholesterol 98 mg/dL (< 200); Globulin 4.7 g/dL (2.4-3.5); Glucose 118 mg/dL (70-105); HDL Cholesterol 16 mg/dL (40-59); LDL Cholesterol,Calculated 65 mg/dL (< 100); Magnesium 1.9 mg/dL (1.6-2.6); Osmolality,Calculated 285 (280-300); Phosphorous 2.5 mg/dL (2.7-4.5); Potassium 3.9 mEq/L (3.5-5.1); Sodium 138 mEq/L (136-145); Total Protein 7.4 g/dL (6.4-8.9); Triglycerides 85 mg/dL (< 150); eGFR For African Americans > 60 (> 60); eGFR For Non-African Americans > 60 (> 60)
[2020-02-03] MEDS ORDERED: Dexamethasone 4 MG/ML VIAL ONE (09:03)
[2020-02-03 09:06] LABS: Acinetobacter baumannii by PCR Not Detected (Not Detect); Candida albicans by PCR Not Detected (Not Detect); Candida glabrata by PCR Not Detected (Not Detect); Candida krusei by PCR Not Detected (Not Detect); Candida parapsilosis by PCR Not Detected (Not Detect); Candida tropicalis by PCR Not Detected (Not Detect); Enterobacter cloacae Cmplx PCR Not Detected (Not Detect); Enterobacteriaceae by PCR Not Detected (Not Detect); Enterococcus by PCR Not Detected (Not Detect); Escherichia coli by PCR Not Detected (Not Detect); Klebsiella oxytoca by PCR Not Detected (Not Detect); Klebsiella pneumoniae by PCR Not Detected (Not Detect); Proteus by PCR Not Detected (Not Detect); Pseudomonas aeruginosa by PCR Not Detected (Not Detect); Serratia marcescens by PCR Not Detected (Not Detect); Staphylococcus aureus by PCR Not Detected (Not Detect); Staphylococcus by PCR DETECTED (Not Detect); Streptococcus agalactiae(B)PCR Not Detected (Not Detect); Streptococcus by PCR Not Detected (Not Detect); Streptococcus pneumoniae PCR Not Detected (Not Detect); Streptococcus pyogenes (A) PCR Not Detected (Not Detect); mecA Methicillin-Resist Gene Not Detected (Not Detect)
[2020-02-03] MEDS: *HR* HYDROmorphone PF 0.5 MG/0.5 ML SYRINGE IVP PRN ×4 (09:20→09:43)
[2020-02-03] MEDS ORDERED: Ringers Solution, Lactated 1,000 ML ONE (09:27)
[2020-02-03] MEDS ORDERED: Acetaminophen 325 MG TABLET PO PRN (10:29)
[2020-02-03] MEDS ORDERED: Perflutren Lipid Microsphere 1.3 ML in 0.9 % Sodium Chloride 8.7 ML IVP PRN (10:29)
[2020-02-03] MEDS ORDERED: Naloxone 0.4 MG/ML INJ IVP PRN (10:29)
[2020-02-03] MEDS ORDERED: Ondansetron 4 MG/2 ML VIAL IVP PRN (10:29)
[2020-02-03 14:59] VITALS: BP 124/70
[2020-02-03] MEDS ORDERED: Vancomycin 1,750 MG/517.5 ML IV.SOLN IVPB SCH (15:00)
[2020-02-03] MEDS ORDERED: Vancomycin 1,500 MG/265 ML IV.SOLN IVPB SCH (15:00)
== END 2020-02-03 19:06 | disposition left against medical advice (07) ==
LOC: 3ANU 00:43 → EMEROOARM 00:43 → SUATTDRO 06:52 → 3ANU 07:44
PROVIDERS: ADMIT Internal Medicine; ATTEND Internal Medicine

== ENCOUNTER 2020-02-11 19:30 | Observation (INO) ==
[2020-02-11] MEDS ORDERED: Piperacillin/Tazobactam 3.375 GM in 0.9 % Sodium Chloride Mini Bag 100 ML IVPB ONE (19:50)
[2020-02-11] MEDS ORDERED: Vancomycin 2,000 MG/520 ML IV.SOLN IVPB ONE (21:00)
[2020-02-11 21:25] LABS: Basophils # 0.1 K/mcL (0.0-0.2); Basophils % 0.8 %; Eosinophils # 0.3 K/mcL (0.0-0.6); Eosinophils % 4.4 %; Hematocrit 37.4 % (37.5-50.1); Hemoglobin 11.9 g/dL (12.9-16.9); Immature Granulocytes % 0.3 % (0-4); Lymphocytes # 2.8 K/mcL (0.6-4.6); Mean Corpuscular HGB Conc 31.8 g/dL (31.6-35.5); Mean Corpuscular Hemoglobin 27.7 pg (28.0-33.3); Mean Corpuscular Volume 87.2 fL (83.0-100.0); Mean Platelet Volume 8.7 fL (9.4-12.4); Monocytes # 0.6 K/mcL (0.0-1.3); Monocytes % 8.4 %; Neutrophils # 3.8 K/mcL (1.6-8.9); Platelet Count 470 K/mcL (140-400); Red Blood Count 4.29 M/mcL (4.19-5.50); Red Cell Distribution Width 13.8 % (11.5-14.5); Segmented Neutrophils % 50.1 %; White Blood Count 7.7 K/mcL (4.3-11.1)
[2020-02-11 21:44] LABS: BUN/Creatinine Ratio 8 (6-26); Blood Urea Nitrogen 5 mg/dL (6-20); C-Reactive Protein 33 mg/L (Less than 10); Calcium 8.9 mg/dL (8.6-10.3); Carbon Dioxide 30 mEq/L (23-29); Chloride 102 mEq/L (98-107); Glucose 88 mg/dL (70-105); Osmolality,Calculated 285 (280-300); Potassium 3.6 mEq/L (3.5-5.1); Sodium 139 mEq/L (136-145); eGFR For African Americans > 60 (> 60); eGFR For Non-African Americans > 60 (> 60)
[2020-02-11] MEDS ORDERED: Ketorolac 15 MG/ML VIAL IVP ONE (21:50)
[2020-02-11] MEDS: 0.9 % Sodium Chloride 1,000 ML IVC SCH ×3 (22:02→23:58)
[2020-02-11] MEDS ORDERED: Naloxone 0.4 MG/ML INJ IVP PRN (23:11)
[2020-02-11] MEDS ORDERED: Ondansetron 4 MG/2 ML VIAL IVP PRN (23:11)
[2020-02-12 03:21] LABS: Hematocrit 35.4 % (37.5-50.1); Hemoglobin 11.3 g/dL (12.9-16.9); Mean Corpuscular HGB Conc 31.9 g/dL (31.6-35.5); Mean Corpuscular Hemoglobin 27.1 pg (28.0-33.3); Mean Corpuscular Volume 84.9 fL (83.0-100.0); Mean Platelet Volume 9.9 fL (9.4-12.4); Platelet Count 414 K/mcL (140-400); Red Blood Count 4.17 M/mcL (4.19-5.50); Red Cell Distribution Width 13.9 % (11.5-14.5); White Blood Count 7.5 K/mcL (4.3-11.1)
[2020-02-12] MEDS: Acetaminophen 325 MG TABLET PO PRN ×2 (03:47→10:14)
[2020-02-12 05:16] LABS: BUN/Creatinine Ratio 8 (6-26); Blood Urea Nitrogen 5 mg/dL (6-20); Calcium 8.5 mg/dL (8.6-10.3); Carbon Dioxide 24 mEq/L (23-29); Chloride 107 mEq/L (98-107); Glucose 117 mg/dL (70-105); Osmolality,Calculated 288 (280-300); Potassium 4.2 mEq/L (3.5-5.1); Sodium 140 mEq/L (136-145); eGFR For African Americans > 60 (> 60); eGFR For Non-African Americans > 60 (> 60)
[2020-02-12] MEDS ORDERED: Piperacillin/Tazobactam 3.375 GM in 0.9 % Sodium Chloride Mini Bag 100 ML IVPB SCH (08:00)
[2020-02-12] MEDS ORDERED: Vancomycin 2,000 MG/520 ML IV.SOLN IVPB SCH (10:00)
[2020-02-12] MEDS ORDERED: *HR* Buprenorphine HCl 8 MG TAB.SUBL SL SCH (10:30)
[2020-02-12 11:22] VITALS: BP 124/70
[2020-02-12] MEDS: 0.9 % Sodium Chloride 1,000 ML IVC SCH (13:22)
== END 2020-02-12 13:14 | disposition left against medical advice (07) ==
LOC: EMEROOARM 19:30 → 3BNU 19:30
PROVIDERS: ADMIT Family Medicine; ATTEND Family Medicine

== ENCOUNTER 2020-05-15 21:44 | Observation (INO) ==
[2020-05-15] MEDS ORDERED: 0.9 % Sodium Chloride 1,000 ML IVC ONE (22:00)
[2020-05-15 23:04] LABS: Basophils % 0.5 %; Eosinophils # 0.2 K/mcL (0.0-0.6); Hematocrit 35.1 % (37.5-50.1); Immature Granulocytes % 0.2 % (0-4); Lymphocytes % 31.2 %; Mean Corpuscular HGB Conc 31.3 g/dL (31.6-35.5); Mean Corpuscular Hemoglobin 26.5 pg (28.0-33.3); Mean Corpuscular Volume 84.6 fL (83.0-100.0); Mean Platelet Volume 8.7 fL (9.4-12.4); Monocytes # 0.6 K/mcL (0.0-1.3); Monocytes % 9.2 %; Neutrophils # 3.6 K/mcL (1.6-8.9); Platelet Count 357 K/mcL (140-400); Red Blood Count 4.15 M/mcL (4.19-5.50); Red Cell Distribution Width 14.9 % (11.5-14.5); Segmented Neutrophils % 55.9 %; White Blood Count 6.4 K/mcL (4.3-11.1)
[2020-05-15 23:45] LABS: Alanine Aminotransferase 26 Units/L (7-52); Albumin 3.3 g/dL (3.5-5.7); Albumin/Globulin Ratio 0.7 (1.1-2.2); Alkaline Phosphatase 103 Units/L (34-104); Amylase 18 Units/L (29-103); Aspartate Amino Transferase 26 Units/L (13-39); BUN/Creatinine Ratio 14 (6-26); Bilirubin,Total 0.3 mg/dL (0.3-1.0); Blood Urea Nitrogen 10 mg/dL (6-20); C-Reactive Protein 133 mg/L (Less than 10); Calcium 8.9 mg/dL (8.6-10.3); Carbon Dioxide 26 mEq/L (23-29); Chloride 103 mEq/L (98-107); Glucose 91 mg/dL (70-105); Lipase 10 Units/L (11-82); Magnesium 2.1 mg/dL (1.6-2.6); Osmolality,Calculated 283 (280-300); Phosphorous 3.2 mg/dL (2.7-4.5); Potassium 3.5 mEq/L (3.5-5.1); Sodium 137 mEq/L (136-145); Total Protein 8.3 g/dL (6.4-8.9); eGFR For African Americans > 60 (> 60); eGFR For Non-African Americans > 60 (> 60)
[2020-05-15 23:46] LABS: Bilirubin,Indirect 0.3 mg/dL (0.0-1.0); Troponin I < 0.03 ng/mL (< 0.04)
[2020-05-16] MEDS ORDERED: Ketorolac 30 MG/ML VIAL IVP ONE (00:06)
[2020-05-16] MEDS ORDERED: Vancomycin 2,000 MG/520 ML IV.SOLN IVPB ONE (00:11)
[2020-05-16] MEDS ORDERED: Piperacillin/Tazobactam 3.375 GM in 0.9 % Sodium Chloride Mini Bag 100 ML IVPB ONE (00:11)
[2020-05-16] MEDS ORDERED: Clindamycin 900 MG/50 ML 900 MG/50 ML IV.SOLN IVPB ONE (00:11)
[2020-05-16] MEDS ORDERED: *HR* LORazepam 2 MG/ML VIAL IVP ONE ×2 (01:25→04:36)
[2020-05-16] MEDS ORDERED: Ondansetron 4 MG/2 ML VIAL IVP PRN (01:57)
[2020-05-16] MEDS ORDERED: Naloxone 0.4 MG/ML INJ IVP PRN (01:57)
[2020-05-16] MEDS ORDERED: Acetaminophen 325 MG TABLET PO PRN (01:57)
[2020-05-16] MEDS ORDERED: Ringers Solution, Lactated 1,000 ML IVC SCH (02:00)
[2020-05-16] MEDS: *HR* Heparin 5,000 UNIT/ML VIAL SQ SCH ×2 (06:17→14:28)
[2020-05-16] MEDS ORDERED: *HR* Buprenorphine HCl 8 MG TAB.SUBL SL SCH (09:15)
[2020-05-16] MEDS: Ketorolac 15 MG/ML VIAL IVP PRN ×2 (09:55→16:04)
[2020-05-16] MEDS: Piperacillin/Tazobactam 3.375 GM in 0.9 % Sodium Chloride Mini Bag 100 ML IVPB SCH ×2 (09:57→16:05)
[2020-05-16] MEDS: HydrOXYzine 100 MG/2 ML VIAL IM PRN ×2 (10:06→16:12)
[2020-05-16 11:36] LABS: Basophils % 0.5 %; Eosinophils # 0.2 K/mcL (0.0-0.6); Eosinophils % 3.8 %; Hematocrit 32.4 % (37.5-50.1); Hemoglobin 10.2 g/dL (12.9-16.9); Immature Granulocytes % 0.2 % (0-4); Lymphocytes # 1.3 K/mcL (0.6-4.6); Lymphocytes % 23.4 %; Mean Corpuscular HGB Conc 31.5 g/dL (31.6-35.5); Mean Corpuscular Volume 85.7 fL (83.0-100.0); Mean Platelet Volume 8.7 fL (9.4-12.4); Monocytes # 0.5 K/mcL (0.0-1.3); Monocytes % 9.1 %; Neutrophils # 3.5 K/mcL (1.6-8.9); Platelet Count 333 K/mcL (140-400); Red Blood Count 3.78 M/mcL (4.19-5.50); White Blood Count 5.6 K/mcL (4.3-11.1)
[2020-05-16 11:51] LABS: INR 1.1; Prothrombin Time 12.7 Seconds (9.4-12.1)
[2020-05-16 11:57] LABS: BUN/Creatinine Ratio 19 (6-26); Blood Urea Nitrogen 12 mg/dL (6-20); Calcium 8.3 mg/dL (8.6-10.3); Carbon Dioxide 24 mEq/L (23-29); Chloride 106 mEq/L (98-107); Chol/HDL Ratio 3.9 (0-4.9); Cholesterol 82 mg/dL (< 200); Glucose 99 mg/dL (70-105); HDL Cholesterol 21 mg/dL (40-59); LDL Cholesterol,Calculated 44 mg/dL (< 100); Magnesium 1.8 mg/dL (1.6-2.6); Osmolality,Calculated 280 (280-300); Sodium 135 mEq/L (136-145); Triglycerides 83 mg/dL (< 150); eGFR For African Americans > 60 (> 60); eGFR For Non-African Americans > 60 (> 60)
[2020-05-16] MEDS ORDERED: Isovue-370 500 ML BOTTLE IVP ONE (12:13)
[2020-05-16] MEDS ORDERED: Vancomycin 1,750 MG/517.5 ML IV.SOLN IVPB SCH (13:00)
[2020-05-16 15:21] VITALS: BP 132/86
== END 2020-05-16 17:38 | disposition left against medical advice (07) ==
LOC: EMEROOARM 21:44 → 3ANU 21:44
PROVIDERS: ADMIT Internal Medicine; ATTEND Internal Medicine

== ENCOUNTER 2020-06-04 19:30 | Observation (INO) ==
[2020-06-04] MEDS ORDERED: Vancomycin 2,000 MG/520 ML IV.SOLN IVPB ONE (20:02)
[2020-06-04] MEDS ORDERED: Isovue-370 500 ML BOTTLE IVP ONE (20:03)
[2020-06-04] MEDS ORDERED: 0.9 % Sodium Chloride 1,000 ML IVC ONE (20:04)
[2020-06-04 21:20] LABS: Hemoglobin 11.5 g/dL (12.9-16.9); Mean Corpuscular HGB Conc 31.9 g/dL (31.6-35.5); Mean Corpuscular Volume 84.5 fL (83.0-100.0); Mean Platelet Volume 8.8 fL (9.4-12.4); Platelet Count 374 K/mcL (140-400); Red Blood Count 4.26 M/mcL (4.19-5.50); Red Cell Distribution Width 15.3 % (11.5-14.5); White Blood Count 7.3 K/mcL (4.3-11.1)
[2020-06-04] MEDS ORDERED: Morphine Sulfate 2 MG/ML SYRINGE IVP STA (21:32)
[2020-06-04] MEDS ORDERED: Ondansetron 4 MG/2 ML VIAL IVP STA (21:33)
[2020-06-04 21:37] LABS: BUN/Creatinine Ratio 20 (6-26); Blood Urea Nitrogen 14 mg/dL (6-20); Calcium 8.6 mg/dL (8.6-10.3); Carbon Dioxide 25 mEq/L (23-29); Chloride 105 mEq/L (98-107); Glucose 98 mg/dL (70-105); Osmolality,Calculated 288 (280-300); Potassium 3.5 mEq/L (3.5-5.1); Sodium 139 mEq/L (136-145); eGFR For African Americans > 60 (> 60); eGFR For Non-African Americans > 60 (> 60)
[2020-06-04] MEDS ORDERED: Ketorolac 15 MG/ML VIAL IVP ONE (23:29)
[2020-06-05] MEDS ORDERED: Naloxone 0.4 MG/ML INJ IVP PRN (00:21)
[2020-06-05] MEDS ORDERED: Acetaminophen 325 MG TABLET PO PRN (01:29)
[2020-06-05] MEDS ORDERED: Nicotine 21 MG PATCH.TD24 TD PRN (01:56)
[2020-06-05 01:57] LABS: Basophils % 0.6 %; Eosinophils # 0.1 K/mcL (0.0-0.6); Eosinophils % 1.9 %; Hematocrit 34.9 % (37.5-50.1); Hemoglobin 10.9 g/dL (12.9-16.9); Immature Granulocytes % 0.1 % (0-4); Lymphocytes # 2.1 K/mcL (0.6-4.6); Lymphocytes % 30.5 %; Mean Corpuscular HGB Conc 31.2 g/dL (31.6-35.5); Mean Corpuscular Hemoglobin 26.6 pg (28.0-33.3); Mean Corpuscular Volume 85.1 fL (83.0-100.0); Mean Platelet Volume 8.9 fL (9.4-12.4); Monocytes # 0.7 K/mcL (0.0-1.3); Monocytes % 10.9 %; Neutrophils # 3.8 K/mcL (1.6-8.9); Platelet Count 341 K/mcL (140-400); Red Cell Distribution Width 15.3 % (11.5-14.5); White Blood Count 6.8 K/mcL (4.3-11.1)
[2020-06-05 02:16] LABS: BUN/Creatinine Ratio 19 (6-26); Blood Urea Nitrogen 12 mg/dL (6-20); C-Reactive Protein 25 mg/L (Less than 10); Calcium 8.4 mg/dL (8.6-10.3); Carbon Dioxide 24 mEq/L (23-29); Chloride 106 mEq/L (98-107); Glucose 97 mg/dL (70-105); Magnesium 1.9 mg/dL (1.6-2.6); Osmolality,Calculated 282 (280-300); Potassium 3.8 mEq/L (3.5-5.1); Sodium 136 mEq/L (136-145); eGFR For African Americans > 60 (> 60); eGFR For Non-African Americans > 60 (> 60)
[2020-06-05] MEDS: 0.9 % Sodium Chloride 1,000 ML IVC SCH ×2 (03:26→12:03)
[2020-06-05] MEDS ORDERED: *HR* Heparin 5,000 UNIT/ML VIAL SQ SCH (06:00)
[2020-06-05] MEDS ORDERED: Ketorolac 15 MG/ML VIAL IVP SCH (06:00)
[2020-06-05] MEDS: Ketorolac 15 MG/ML VIAL IVP PRN ×3 (06:24→20:06)
[2020-06-05] MEDS: Piperacillin/Tazobactam 3.375 GM in 0.9 % Sodium Chloride Mini Bag 100 ML IVPB SCH ×3 (07:47→23:56)
[2020-06-05 08:20] LABS: INR 1.1; Prothrombin Time 13.2 Seconds (9.4-12.1)
[2020-06-05] MEDS ORDERED: Vancomycin 1,500 MG/265 ML IV.SOLN IVPB SCH (09:00)
[2020-06-05] MEDS: Ondansetron ODT 4 MG TAB.RAPDIS SL PRN ×2 (09:37→20:00)
[2020-06-05] MEDS ORDERED: Acetaminophen IV 1,000 MG/100 ML BAG IVPB ONE (10:56)
[2020-06-05] MEDS: *HR* Buprenorphine HCl 8 MG TAB.SUBL SL SCH (16:44)
[2020-06-05] MEDS: Vancomycin 1,500 MG/265 ML IV.SOLN IVPB SCH (16:44)
[2020-06-05] MEDS ORDERED: (Buprenorphine Hcl/Naloxone Hcl [Suboxone 8 Mg-2 Mg SL) SL SCH (21:00)
[2020-06-06] MEDS ORDERED: Acetaminophen IV 1,000 MG/100 ML BAG IVPB ONE (00:42)
[2020-06-06] MEDS: Vancomycin 1,500 MG/265 ML IV.SOLN IVPB SCH ×3 (01:05→09:16)
[2020-06-06] MEDS: *HR* Buprenorphine HCl 8 MG TAB.SUBL SL SCH (04:04)
[2020-06-06] MEDS: Piperacillin/Tazobactam 3.375 GM in 0.9 % Sodium Chloride Mini Bag 100 ML IVPB SCH (09:17)
[2020-06-06 10:51] VITALS: BP 146/79
[2020-06-06 12:02] LABS: Basophils % 0.5 %; Hematocrit 34.5 % (37.5-50.1); Hemoglobin 11.3 g/dL (12.9-16.9); Immature Granulocytes % 0.3 % (0-4); Lymphocytes # 1.6 K/mcL (0.6-4.6); Lymphocytes % 25.2 %; Mean Corpuscular HGB Conc 32.8 g/dL (31.6-35.5); Mean Corpuscular Volume 82.5 fL (83.0-100.0); Mean Platelet Volume 9.1 fL (9.4-12.4); Monocytes # 0.4 K/mcL (0.0-1.3); Monocytes % 6.2 %; Neutrophils # 4.3 K/mcL (1.6-8.9); Platelet Count 345 K/mcL (140-400); Red Blood Count 4.18 M/mcL (4.19-5.50); Red Cell Distribution Width 14.7 % (11.5-14.5); Segmented Neutrophils % 67.8 %; White Blood Count 6.3 K/mcL (4.3-11.1)
[2020-06-06 12:17] LABS: BUN/Creatinine Ratio 19 (6-26); Blood Urea Nitrogen 11 mg/dL (6-20); Calcium 8.8 mg/dL (8.6-10.3); Carbon Dioxide 26 mEq/L (23-29); Chloride 103 mEq/L (98-107); Glucose 127 mg/dL (70-105); Osmolality,Calculated 285 (280-300); Potassium 3.3 mEq/L (3.5-5.1); Sodium 137 mEq/L (136-145); eGFR For African Americans > 60 (> 60); eGFR For Non-African Americans > 60 (> 60)
[2020-06-06] MEDS: Ketorolac 15 MG/ML VIAL IVP PRN (14:46)
== END 2020-06-06 16:22 | disposition left against medical advice (07) ==
LOC: 3BNU 19:30 → EMEROOARM 19:30 → 3BNU 06-05 00:47
PROVIDERS: ADMIT Student in an Organized Health Care Education/Training Program; ATTEND Student in an Organized Health Care Education/Training Program

== ENCOUNTER 2020-06-27 07:30 | Inpatient (IN) ==
[2020-06-27] MEDS ORDERED: Ketorolac 15 MG/ML VIAL IVP ONE (07:41)
[2020-06-27] MEDS ORDERED: ALPRAZolam 0.5 MG TABLET PO ONE (07:41)
[2020-06-27] MEDS ORDERED: Ondansetron 4 MG/2 ML VIAL IVP ONE (07:41)
[2020-06-27] MEDS ORDERED: Ampicillin/Sulbactam 3,000 MG in 0.9 % Sodium Chloride Mini Bag 100 ML IVPB ONE (07:55)
[2020-06-27] MEDS ORDERED: Vancomycin 2,000 MG/520 ML IV.SOLN IVPB ONE (07:55)
[2020-06-27 08:17] LABS: Basophils % 0.3 %; Eosinophils % 0.1 %; Hematocrit 37.9 % (37.5-50.1); Hemoglobin 12.2 g/dL (12.9-16.9); Immature Granulocytes % 0.4 % (0-4); Lymphocytes # 0.7 K/mcL (0.6-4.6); Lymphocytes % 4.8 %; Mean Corpuscular HGB Conc 32.2 g/dL (31.6-35.5); Mean Corpuscular Hemoglobin 27.2 pg (28.0-33.3); Mean Corpuscular Volume 84.4 fL (83.0-100.0); Mean Platelet Volume 8.8 fL (9.4-12.4); Monocytes # 0.9 K/mcL (0.0-1.3); Monocytes % 6.1 %; Neutrophils # 12.2 K/mcL (1.6-8.9); Platelet Count 324 K/mcL (140-400); Red Blood Count 4.49 M/mcL (4.19-5.50); Segmented Neutrophils % 88.3 %; White Blood Count 13.8 K/mcL (4.3-11.1)
[2020-06-27 08:19] LABS: INR 1.2; Prothrombin Time 13.6 Seconds (9.4-12.1)
[2020-06-27] MEDS ORDERED: *HR* FentaNYL (PF) 100 MCG/2 ML VIAL IVP ONE ×2 (08:19→11:10)
[2020-06-27 08:34] LABS: Alanine Aminotransferase 25 Units/L (7-52); Albumin 3.7 g/dL (3.5-5.7); Albumin/Globulin Ratio 0.7 (1.1-2.2); Alkaline Phosphatase 111 Units/L (34-104); Aspartate Amino Transferase 24 Units/L (13-39); BUN/Creatinine Ratio 15 (6-26); Bilirubin,Direct 0.1 mg/dL (0.0-0.2); Bilirubin,Indirect 0.4 mg/dL (0.0-1.0); Bilirubin,Total 0.5 mg/dL (0.3-1.0); Blood Urea Nitrogen 11 mg/dL (6-20); Calcium 9.2 mg/dL (8.6-10.3); Carbon Dioxide 23 mEq/L (23-29); Chloride 102 mEq/L (98-107); Glucose 147 mg/dL (70-105); Osmolality,Calculated 282 (280-300); Potassium 3.7 mEq/L (3.5-5.1); Sodium 135 mEq/L (136-145); Total Protein 8.7 g/dL (6.4-8.9); eGFR For African Americans > 60 (> 60); eGFR For Non-African Americans > 60 (> 60)
[2020-06-27 10:29] LABS: C-Reactive Protein 99 mg/L (Less than 10)
[2020-06-27] MEDS ORDERED: Naloxone 0.4 MG/ML INJ IVP PRN (14:03)
[2020-06-27] MEDS ORDERED: Acetaminophen 325 MG TABLET PO PRN (14:03)
[2020-06-27] MEDS: *HR* OxyCODONE/APAP 10/325 TABLET PO PRN ×2 (15:40→21:58)
[2020-06-27] MEDS: Ampicillin/Sulbactam 1,500 MG in 0.9 % Sodium Chloride Mini Bag 100 ML IVPB SCH (19:02)
[2020-06-27] MEDS: Vancomycin 1,500 MG/265 ML IV.SOLN IVPB SCH (20:53)
[2020-06-28] MEDS: Ampicillin/Sulbactam 1,500 MG in 0.9 % Sodium Chloride Mini Bag 100 ML IVPB SCH ×5 (00:39→23:49)
[2020-06-28 01:31] LABS: Basophils % 0.2 %; Eosinophils % 0.1 %; Hematocrit 34.6 % (37.5-50.1); Hemoglobin 10.9 g/dL (12.9-16.9); Immature Granulocytes % 0.6 % (0-4); Lymphocytes % 6.7 %; Mean Corpuscular HGB Conc 31.5 g/dL (31.6-35.5); Mean Corpuscular Hemoglobin 26.7 pg (28.0-33.3); Mean Corpuscular Volume 84.6 fL (83.0-100.0); Mean Platelet Volume 9.1 fL (9.4-12.4); Monocytes % 6.2 %; Platelet Count 289 K/mcL (140-400); Red Blood Count 4.09 M/mcL (4.19-5.50); Segmented Neutrophils % 86.2 %; White Blood Count 13.3 K/mcL (4.3-11.1)
[2020-06-28 01:32] LABS: Lymphocytes # 0.9 K/mcL (0.6-4.6); Monocytes # 0.8 K/mcL (0.0-1.3); Neutrophils # 11.5 K/mcL (1.6-8.9)
[2020-06-28 01:34] LABS: BUN/Creatinine Ratio 13 (6-26); Blood Urea Nitrogen 7 mg/dL (6-20); Calcium 8.4 mg/dL (8.6-10.3); Carbon Dioxide 25 mEq/L (23-29); Chloride 98 mEq/L (98-107); Glucose 128 mg/dL (70-105); Osmolality,Calculated 270 (280-300); Potassium 3.5 mEq/L (3.5-5.1); Sodium 130 mEq/L (136-145); eGFR For African Americans > 60 (> 60); eGFR For Non-African Americans > 60 (> 60)
[2020-06-28] MEDS: *HR* OxyCODONE/APAP 10/325 TABLET PO PRN ×3 (06:02→18:19)
[2020-06-28] MEDS ORDERED: Perflutren Lipid Microsphere 1.3 ML in 0.9 % Sodium Chloride 8.7 ML IVP PRN (08:37)
[2020-06-28] MEDS: *HR* HYDROcodone/Acet 5/325 mg TABLET PO PRN ×3 (10:18→22:43)
[2020-06-28] MEDS: Vancomycin 1,500 MG/265 ML IV.SOLN IVPB SCH ×2 (10:19→21:35)
[2020-06-28] MEDS: Ondansetron 4 MG/2 ML VIAL IVP PRN ×2 (11:08→21:32)
[2020-06-29] MEDS: *HR* OxyCODONE/APAP 10/325 TABLET PO PRN (00:58)
[2020-06-29 04:33] LABS: Basophils % 0.2 %; Eosinophils % 0.4 %; Hematocrit 32.2 % (37.5-50.1); Hemoglobin 10.3 g/dL (12.9-16.9); Immature Granulocytes % 0.8 % (0-4); Lymphocytes # 0.9 K/mcL (0.6-4.6); Lymphocytes % 8.3 %; Mean Corpuscular Hemoglobin 26.6 pg (28.0-33.3); Mean Corpuscular Volume 83.2 fL (83.0-100.0); Mean Platelet Volume 9.2 fL (9.4-12.4); Monocytes # 0.7 K/mcL (0.0-1.3); Monocytes % 6.3 %; Neutrophils # 9.4 K/mcL (1.6-8.9); Platelet Count 232 K/mcL (140-400); Red Blood Count 3.87 M/mcL (4.19-5.50); Red Cell Distribution Width 14.5 % (11.5-14.5); White Blood Count 11.1 K/mcL (4.3-11.1)
[2020-06-29] MEDS: Vancomycin 1,500 MG/265 ML IV.SOLN IVPB SCH ×3 (04:48→19:51)
[2020-06-29 04:56] LABS: BUN/Creatinine Ratio 29 (6-26); Blood Urea Nitrogen 14 mg/dL (6-20); Calcium 8.1 mg/dL (8.6-10.3); Carbon Dioxide 26 mEq/L (23-29); Chloride 101 mEq/L (98-107); Glucose 117 mg/dL (70-105); Osmolality,Calculated 280 (280-300); Potassium 3.6 mEq/L (3.5-5.1); Sodium 134 mEq/L (136-145); eGFR For African Americans > 60 (> 60); eGFR For Non-African Americans > 60 (> 60)
[2020-06-29] MEDS: *HR* HYDROcodone/Acet 5/325 mg TABLET PO PRN (05:57)
[2020-06-29] MEDS: Ampicillin/Sulbactam 1,500 MG in 0.9 % Sodium Chloride Mini Bag 100 ML IVPB SCH ×4 (05:58→23:14)
[2020-06-29] MEDS ORDERED: *HR* Promethazine 25 MG/ML VIAL IM ONE (06:45)
[2020-06-29] MEDS ORDERED: 0.9 % Sodium Chloride 1,000 ML ONE ×2 (07:16→09:44)
[2020-06-29] MEDS ORDERED: Pantoprazole 40 MG in 0.9 % Sodium Chloride Mini Bag 100 ML IVC SCH (07:45)
[2020-06-29] MEDS ORDERED: *HR* OxyCODONE/APAP 10/325 TABLET PO PRN (07:55)
[2020-06-29] MEDS ORDERED: *HR* FentaNYL (PF) 100 MCG/2 ML VIAL IVP PRN (08:16)
[2020-06-29 08:38] LABS: Hematocrit 27.3 % (37.5-50.1)
[2020-06-29 08:40] LABS: Hemoglobin 8.7 g/dL (12.9-16.9)
[2020-06-29] MEDS ORDERED: Octreotide 400 MCG in 0.9 % Sodium Chloride 100 ML IVC SCH ×2 (09:00→09:45)
[2020-06-29] MEDS ORDERED: Perflutren Lipid Microsphere 1.3 ML in 0.9 % Sodium Chloride 8.7 ML IVP PRN (09:06)
[2020-06-29] MEDS ORDERED: Acetaminophen 325 MG TABLET PO PRN (09:06)
[2020-06-29] MEDS ORDERED: Ondansetron 4 MG/2 ML VIAL IVP PRN (09:06)
[2020-06-29] MEDS ORDERED: Naloxone 0.4 MG/ML INJ IVP PRN (09:06)
[2020-06-29] MEDS ORDERED: Dexmedetomidine HCl 400 MCG/100 ML MLS IVC ONE (09:44)
[2020-06-29] MEDS: Dexmedetomidine HCl 400 MCG/100 ML MLS IVC SCH ×4 (09:45→22:14)
[2020-06-29] MEDS: Pantoprazole 40 MG in 0.9 % Sodium Chloride Mini Bag 100 ML IVC SCH ×3 (09:45→18:52)
[2020-06-29] MEDS ORDERED: *HR* FentaNYL (PF) 100 MCG/2 ML VIAL IVP SCH (11:00)
[2020-06-29] MEDS ORDERED: Lidocaine -MPF 2% 2 ML VIAL ONE (11:57)
[2020-06-29] MEDS ORDERED: *HR* Vasopressin 20 UNIT/ML VIAL ONE (12:39)
[2020-06-29] MEDS ORDERED: *HR* EPINEPHrine 1 MG/10 ML SYRINGE IVP PRN (13:08)
[2020-06-29] MEDS: *HR* FentaNYL (PF) 100 MCG/2 ML VIAL IVP PRN ×5 (13:45→23:41)
[2020-06-29] MEDS: Calcium Gluconate 1gm/50mL 1 GM/50 ML BAG IVPB SCH ×2 (13:53→14:41)
[2020-06-29] MEDS: Norepinephrine 4 MG/254 ML IV.SOLN IVC SCH (13:54)
[2020-06-29 14:57] LABS: Hematocrit 30.9 % (37.5-50.1); Mean Corpuscular HGB Conc 32.4 g/dL (31.6-35.5); Mean Corpuscular Hemoglobin 27.6 pg (28.0-33.3); Mean Corpuscular Volume 85.4 fL (83.0-100.0); Platelet Count 237 K/mcL (140-400); Red Blood Count 3.62 M/mcL (4.19-5.50); Red Cell Distribution Width 14.6 % (11.5-14.5); White Blood Count 15.2 K/mcL (4.3-11.1)
[2020-06-29 15:00] LABS: VBG Ionized Calcium 1.08 mmol/L (1.15-1.35)
[2020-06-29 15:08] LABS: INR 1.3; Prothrombin Time 14.9 Seconds (9.4-12.1)
[2020-06-29 15:19] LABS: Alanine Aminotransferase 10 Units/L (7-52); Albumin 2.2 g/dL (3.5-5.7); Albumin/Globulin Ratio 0.7 (1.1-2.2); Alkaline Phosphatase 67 Units/L (34-104); Aspartate Amino Transferase 10 Units/L (13-39); BUN/Creatinine Ratio 43 (6-26); Bilirubin,Total 0.5 mg/dL (0.3-1.0); Blood Urea Nitrogen 28 mg/dL (6-20); Calcium 7.4 mg/dL (8.6-10.3); Carbon Dioxide 22 mEq/L (23-29); Chloride 108 mEq/L (98-107); Globulin 3.1 g/dL (2.4-3.5); Glucose 157 mg/dL (70-105); Osmolality,Calculated 291 (280-300); Potassium 4.1 mEq/L (3.5-5.1); Sodium 136 mEq/L (136-145); Total Protein 5.3 g/dL (6.4-8.9); eGFR For African Americans > 60 (> 60); eGFR For Non-African Americans > 60 (> 60)
[2020-06-29 20:57] LABS: Hematocrit 25.7 % (37.5-50.1); Hemoglobin 8.5 g/dL (12.9-16.9)
[2020-06-30 00:07] LABS: Hematocrit 24.6 % (37.5-50.1); Hemoglobin 8.2 g/dL (12.9-16.9)
[2020-06-30] MEDS ORDERED: Calcium Gluconate 1gm/50mL 1 GM/50 ML BAG IVPB PRN (00:18)
[2020-06-30] MEDS ORDERED: Potassium Phosphate 44 MEQ in 0.9 % Sodium Chloride 250 ML IVPB PRN (00:18)
[2020-06-30] MEDS: Pantoprazole 40 MG in 0.9 % Sodium Chloride Mini Bag 100 ML IVC SCH ×2 (01:11→07:16)
[2020-06-30] MEDS: *HR* FentaNYL (PF) 100 MCG/2 ML VIAL IVP PRN ×2 (03:30→06:38)
[2020-06-30 03:35] LABS: Basophils % 0.2 %; Eosinophils % 0.2 %; Hematocrit 23.9 % (37.5-50.1); Immature Granulocytes % 0.8 % (0-4); Lymphocytes # 2.7 K/mcL (0.6-4.6); Mean Corpuscular HGB Conc 33.5 g/dL (31.6-35.5); Mean Corpuscular Hemoglobin 28.6 pg (28.0-33.3); Mean Corpuscular Volume 85.4 fL (83.0-100.0); Mean Platelet Volume 9.7 fL (9.4-12.4); Monocytes # 0.7 K/mcL (0.0-1.3); Monocytes % 5.8 %; Neutrophils # 9.1 K/mcL (1.6-8.9); Platelet Count 254 K/mcL (140-400); Red Cell Distribution Width 14.7 % (11.5-14.5); White Blood Count 12.6 K/mcL (4.3-11.1)
[2020-06-30 03:36] LABS: VBG Ionized Calcium 1.13 mmol/L (1.15-1.35)
[2020-06-30 03:57] LABS: BUN/Creatinine Ratio 40 (6-26); Blood Urea Nitrogen 25 mg/dL (6-20); Calcium 7.6 mg/dL (8.6-10.3); Carbon Dioxide 22 mEq/L (23-29); Chloride 109 mEq/L (98-107); Glucose 104 mg/dL (70-105); Magnesium 1.8 mg/dL (1.6-2.6); Osmolality,Calculated 291 (280-300); Phosphorous 2.9 mg/dL (2.7-4.5); Potassium 3.8 mEq/L (3.5-5.1); Sodium 138 mEq/L (136-145); eGFR For African Americans > 60 (> 60); eGFR For Non-African Americans > 60 (> 60)
[2020-06-30] MEDS: Dexmedetomidine HCl 400 MCG/100 ML MLS IVC SCH ×4 (04:05→21:19)
[2020-06-30 04:22] LABS: Vancomycin,Trough 18 mcg/mL (5-10)
[2020-06-30] MEDS: Potassium Chloride 40 MEQ/200 ML BAG IVPB PRN (04:32)
[2020-06-30] MEDS: Ampicillin/Sulbactam 1,500 MG in 0.9 % Sodium Chloride Mini Bag 100 ML IVPB SCH ×3 (04:50→18:03)
[2020-06-30] MEDS: Vancomycin 1,250 MG/262.5 ML IV.SOLN IVPB SCH ×3 (04:52→21:18)
[2020-06-30] MEDS: *HR* HYDROcodone/Acet 5/325 mg TABLET PO PRN ×3 (09:09→21:19)
[2020-06-30] MEDS: Norepinephrine 4 MG/254 ML IV.SOLN IVC SCH (14:53)
[2020-06-30 16:19] LABS: Hematocrit 20.6 % (37.5-50.1)
[2020-06-30 16:27] LABS: Magnesium 1.9 mg/dL (1.6-2.6); Phosphorous 3.2 mg/dL (2.7-4.5); Potassium 3.8 mEq/L (3.5-5.1)
[2020-06-30] MEDS ORDERED: 0.9 % Sodium Chloride 500 ML ONE (16:49)
[2020-06-30] MEDS: Pantoprazole 40 MG VIAL IVP SCH (18:04)
[2020-06-30] MEDS: *HR* OxyCODONE/APAP 10/325 TABLET PO PRN (19:22)
[2020-06-30 22:53] LABS: Hematocrit 22.3 % (37.5-50.1); Hemoglobin 7.4 g/dL (12.9-16.9)
[2020-07-01] MEDS: Ampicillin/Sulbactam 1,500 MG in 0.9 % Sodium Chloride Mini Bag 100 ML IVPB SCH ×3 (00:22→11:26)
[2020-07-01] MEDS ORDERED: 0.9 % Sodium Chloride 250 ML IVC SCH (01:15)
[2020-07-01] MEDS: *HR* OxyCODONE/APAP 10/325 TABLET PO PRN ×3 (01:23→13:23)
[2020-07-01] MEDS: Dexmedetomidine HCl 400 MCG/100 ML MLS IVC SCH ×5 (02:15→21:08)
[2020-07-01] MEDS: *HR* HYDROcodone/Acet 5/325 mg TABLET PO PRN ×4 (03:20→22:43)
[2020-07-01 04:31] LABS: Basophils % 0.4 %; Eosinophils # 0.1 K/mcL (0.0-0.6); Eosinophils % 0.9 %; Hematocrit 22.5 % (37.5-50.1); Hemoglobin 7.7 g/dL (12.9-16.9); Immature Granulocytes % 0.4 % (0-4); Lymphocytes % 17.3 %; Mean Corpuscular HGB Conc 34.2 g/dL (31.6-35.5); Mean Corpuscular Hemoglobin 28.8 pg (28.0-33.3); Mean Corpuscular Volume 84.3 fL (83.0-100.0); Mean Platelet Volume 9.9 fL (9.4-12.4); Monocytes # 0.8 K/mcL (0.0-1.3); Neutrophils # 8.4 K/mcL (1.6-8.9); Platelet Count 248 K/mcL (140-400); Red Blood Count 2.67 M/mcL (4.19-5.50); Red Cell Distribution Width 14.6 % (11.5-14.5); White Blood Count 11.4 K/mcL (4.3-11.1)
[2020-07-01 04:32] LABS: VBG Ionized Calcium 1.14 mmol/L (1.15-1.35)
[2020-07-01 04:51] LABS: Alanine Aminotransferase 18 Units/L (7-52); Albumin 2.2 g/dL (3.5-5.7); Albumin/Globulin Ratio 0.7 (1.1-2.2); Alkaline Phosphatase 52 Units/L (34-104); Aspartate Amino Transferase 23 Units/L (13-39); BUN/Creatinine Ratio 21 (6-26); Bilirubin,Direct 0.3 mg/dL (0.0-0.2); Bilirubin,Indirect 0.1 mg/dL (0.0-1.0); Bilirubin,Total 0.4 mg/dL (0.3-1.0); Blood Urea Nitrogen 12 mg/dL (6-20); Calcium 7.5 mg/dL (8.6-10.3); Carbon Dioxide 21 mEq/L (23-29); Chloride 106 mEq/L (98-107); Globulin 3.3 g/dL (2.4-3.5); Glucose 127 mg/dL (70-105); Magnesium 2.1 mg/dL (1.6-2.6); Osmolality,Calculated 279 (280-300); Phosphorous 3.1 mg/dL (2.7-4.5); Potassium 3.9 mEq/L (3.5-5.1); Sodium 134 mEq/L (136-145); Total Protein 5.5 g/dL (6.4-8.9); eGFR For African Americans > 60 (> 60); eGFR For Non-African Americans > 60 (> 60)
[2020-07-01] MEDS: Pantoprazole 40 MG VIAL IVP SCH ×2 (05:42→18:59)
[2020-07-01] MEDS: Vancomycin 1,250 MG/262.5 ML IV.SOLN IVPB SCH (05:42)
[2020-07-01] MEDS: Potassium Chloride 40 MEQ/200 ML BAG IVPB PRN ×2 (06:22→07:26)
[2020-07-01 07:57] LABS: Hematocrit 24.5 % (37.5-50.1); Hemoglobin 8.1 g/dL (12.9-16.9)
[2020-07-01] MEDS: Norepinephrine 4 MG/254 ML IV.SOLN IVC SCH (10:34)
[2020-07-01] MEDS ORDERED: Vancomycin 1,500 MG/265 ML IV.SOLN IVPB SCH (14:00)
[2020-07-01 14:25] LABS: Bilirubin,Urine Negative (Negative); Blood,Urine Negative (Negative); Clarity,Urine Clear (Clear); Color,Urine Light-Yellow (Yellow); Glucose,Urine (UA) Normal (Normal); Ketones,Urine Negative (Negative); Leukocyte Esterase,Urine Negative (Negative); Nitrite,Urine Negative (Negative); Protein,Urine Negative (Neg-Trace); Specific Gravity,Urine 1.015 (1.010-1.025); Urobilinogen,Urine Normal (Normal)
[2020-07-01] MEDS ORDERED: *HR* HYDROcodone/Acet 5/325 mg TABLET PO PRN (17:40)
[2020-07-01] MEDS ORDERED: Ondansetron 4 MG/2 ML VIAL IVP PRN (17:40)
[2020-07-01] MEDS ORDERED: Naloxone 0.4 MG/ML INJ IVP PRN (17:40)
[2020-07-01] MEDS ORDERED: Calcium Gluconate 1gm/50mL 1 GM/50 ML BAG IVPB PRN (17:40)
[2020-07-01] MEDS ORDERED: Acetaminophen 325 MG TABLET PO PRN (17:40)
[2020-07-01] MEDS: Sucralfate 1 GM TABLET PO SCH ×2 (18:58→21:08)
[2020-07-01 20:01] LABS: Hematocrit 28.8 % (37.5-50.1); Hemoglobin 9.4 g/dL (12.9-16.9)
[2020-07-01] MEDS: Vancomycin 1,500 MG/265 ML IV.SOLN IVPB SCH (22:52)
[2020-07-02] MEDS: Dexmedetomidine HCl 400 MCG/100 ML MLS IVC SCH ×4 (00:01→11:13)
[2020-07-02] MEDS: *HR* HYDROcodone/Acet 5/325 mg TABLET PO PRN ×4 (03:04→15:33)
[2020-07-02 03:33] LABS: Basophils % 0.2 %; Eosinophils # 0.1 K/mcL (0.0-0.6); Eosinophils % 1.1 %; Hematocrit 24.6 % (37.5-50.1); Hemoglobin 8.3 g/dL (12.9-16.9); Immature Granulocytes % 0.5 % (0-4); Lymphocytes # 2.1 K/mcL (0.6-4.6); Lymphocytes % 18.7 %; Mean Corpuscular HGB Conc 33.7 g/dL (31.6-35.5); Mean Corpuscular Hemoglobin 28.5 pg (28.0-33.3); Mean Corpuscular Volume 84.5 fL (83.0-100.0); Mean Platelet Volume 9.9 fL (9.4-12.4); Monocytes # 0.8 K/mcL (0.0-1.3); Monocytes % 7.3 %; Platelet Count 307 K/mcL (140-400); Red Blood Count 2.91 M/mcL (4.19-5.50); Red Cell Distribution Width 14.5 % (11.5-14.5); Segmented Neutrophils % 72.2 %; White Blood Count 11.1 K/mcL (4.3-11.1)
[2020-07-02 03:35] LABS: VBG Ionized Calcium 1.16 mmol/L (1.15-1.35)
[2020-07-02 03:53] LABS: Alanine Aminotransferase 19 Units/L (7-52); Albumin 2.5 g/dL (3.5-5.7); Albumin/Globulin Ratio 0.7 (1.1-2.2); Alkaline Phosphatase 64 Units/L (34-104); Aspartate Amino Transferase 21 Units/L (13-39); BUN/Creatinine Ratio 13 (6-26); Bilirubin,Total 0.3 mg/dL (0.3-1.0); Blood Urea Nitrogen 8 mg/dL (6-20); Carbon Dioxide 24 mEq/L (23-29); Chloride 106 mEq/L (98-107); Globulin 3.7 g/dL (2.4-3.5); Glucose 113 mg/dL (70-105); Osmolality,Calculated 281 (280-300); Phosphorous 3.7 mg/dL (2.7-4.5); Sodium 136 mEq/L (136-145); Total Protein 6.2 g/dL (6.4-8.9); eGFR For African Americans > 60 (> 60); eGFR For Non-African Americans > 60 (> 60)
[2020-07-02] MEDS: Pantoprazole 40 MG VIAL IVP SCH (05:20)
[2020-07-02] MEDS: Vancomycin 1,500 MG/265 ML IV.SOLN IVPB SCH ×2 (05:20→13:54)
[2020-07-02] MEDS: Sucralfate 1 GM TABLET PO SCH ×3 (07:28→15:05)
[2020-07-02] MEDS ORDERED: Acetaminophen 325 MG TABLET PO SCH (12:45)
[2020-07-02 15:07] VITALS: BP 120/60
[2020-07-02] MEDS ORDERED: *HR* HYDROcodone/Acet 10/325 mg TABLET PO PRN ×2 (15:50→16:04)
== END 2020-07-02 17:10 | disposition left against medical advice (07) | DRG 720 ==
LOC: EMEROOARM 07:30 → 3ANU 07:30 → SUATTDRO 13:54 → 3ANU 14:24 → ICNU 06-29 08:19 → SUATTDRO 06-29 14:25
PROVIDERS: ADMIT Internal Medicine; ATTEND Internal Medicine

== ENCOUNTER 2020-07-02 19:57 | Observation (INO) ==
[2020-07-02 22:12] LABS: Basophils % 0.2 %; Eosinophils % 0.1 %; Hematocrit 27.6 % (37.5-50.1); Hemoglobin 9.1 g/dL (12.9-16.9); Immature Granulocytes % 1.2 % (0-4); Lymphocytes # 2.2 K/mcL (0.6-4.6); Lymphocytes % 12.9 %; Mean Corpuscular Hemoglobin 27.9 pg (28.0-33.3); Mean Corpuscular Volume 84.7 fL (83.0-100.0); Mean Platelet Volume 9.6 fL (9.4-12.4); Monocytes # 1.3 K/mcL (0.0-1.3); Monocytes % 7.7 %; Neutrophils # 13.3 K/mcL (1.6-8.9); Platelet Count 462 K/mcL (140-400); Red Blood Count 3.26 M/mcL (4.19-5.50); Red Cell Distribution Width 14.4 % (11.5-14.5); Segmented Neutrophils % 77.9 %
[2020-07-02 22:13] LABS: White Blood Count 17.1 K/mcL (4.3-11.1)
[2020-07-02 22:31] LABS: Alanine Aminotransferase 19 Units/L (7-52); Albumin 2.8 g/dL (3.5-5.7); Albumin/Globulin Ratio 0.6 (1.1-2.2); Alkaline Phosphatase 74 Units/L (34-104); Aspartate Amino Transferase 17 Units/L (13-39); BUN/Creatinine Ratio 12 (6-26); Bilirubin,Total 0.4 mg/dL (0.3-1.0); Blood Urea Nitrogen 7 mg/dL (6-20); C-Reactive Protein 165 mg/L (Less than 10); Calcium 8.1 mg/dL (8.6-10.3); Carbon Dioxide 22 mEq/L (23-29); Chloride 103 mEq/L (98-107); Globulin 4.4 g/dL (2.4-3.5); Glucose 89 mg/dL (70-105); Osmolality,Calculated 277 (280-300); Potassium 3.5 mEq/L (3.5-5.1); Sodium 135 mEq/L (136-145); Total Protein 7.2 g/dL (6.4-8.9); eGFR For African Americans > 60 (> 60); eGFR For Non-African Americans > 60 (> 60)
[2020-07-02] MEDS ORDERED: Ondansetron ODT 4 MG TAB.RAPDIS SL PRN (22:57)
[2020-07-02] MEDS ORDERED: Naloxone 0.4 MG/ML INJ IVP PRN (22:57)
[2020-07-02] MEDS: Vancomycin 1,500 MG/265 ML IV.SOLN IVPB SCH (23:46)
[2020-07-02] MEDS: 0.9 % Sodium Chloride 1,000 ML IVC SCH (23:47)
[2020-07-02] MEDS: Acetaminophen 325 MG TABLET PO PRN (23:51)
[2020-07-03] MEDS ORDERED: Melatonin 3 MG TABLET PO PRN (00:25)
[2020-07-03 01:52] LABS: Basophils # 0.1 K/mcL (0.0-0.2); Basophils % 0.3 %; Eosinophils % 0.2 %; Hematocrit 25.8 % (37.5-50.1); Hemoglobin 8.7 g/dL (12.9-16.9); Immature Granulocytes % 1.2 % (0-4); Lymphocytes # 2.8 K/mcL (0.6-4.6); Lymphocytes % 15.1 %; Mean Corpuscular HGB Conc 33.7 g/dL (31.6-35.5); Mean Corpuscular Hemoglobin 27.8 pg (28.0-33.3); Mean Corpuscular Volume 82.4 fL (83.0-100.0); Monocytes # 1.5 K/mcL (0.0-1.3); Monocytes % 8.1 %; Neutrophils # 13.9 K/mcL (1.6-8.9); Platelet Count 439 K/mcL (140-400); Red Blood Count 3.13 M/mcL (4.19-5.50); Red Cell Distribution Width 14.5 % (11.5-14.5); Segmented Neutrophils % 75.1 %; White Blood Count 18.5 K/mcL (4.3-11.1)
[2020-07-03 02:01] LABS: INR 1.3; Prothrombin Time 14.9 Seconds (9.4-12.1)
[2020-07-03 02:08] LABS: Phosphorous 3.3 mg/dL (2.7-4.5)
[2020-07-03 02:09] LABS: BUN/Creatinine Ratio 13 (6-26); Blood Urea Nitrogen 7 mg/dL (6-20); Calcium 8.2 mg/dL (8.6-10.3); Carbon Dioxide 19 mEq/L (23-29); Chloride 102 mEq/L (98-107); Glucose 118 mg/dL (70-105); Osmolality,Calculated 275 (280-300); Potassium 3.4 mEq/L (3.5-5.1); Sodium 133 mEq/L (136-145); eGFR For African Americans > 60 (> 60); eGFR For Non-African Americans > 60 (> 60)
[2020-07-03] MEDS: Acetaminophen 325 MG TABLET PO PRN (06:30)
[2020-07-03 07:23] VITALS: BP 128/67
[2020-07-03] MEDS ORDERED: *HR* HYDROcodone/Acet 5/325 mg TABLET PO PRN (08:27)
[2020-07-03] MEDS ORDERED: Pantoprazole 40 MG VIAL IVP SCH ×2 (09:00→09:45)
[2020-07-03] MEDS: Vancomycin 1,500 MG/265 ML IV.SOLN IVPB SCH (09:51)
[2020-07-03] MEDS: 0.9 % Sodium Chloride 1,000 ML IVC SCH (09:52)
[2020-07-03] MEDS ORDERED: *HR* Heparin 5,000 UNIT/ML VIAL SQ SCH (18:00)
== END 2020-07-03 10:00 | disposition left against medical advice (07) ==
LOC: 3ANU 19:57 → EMEROOARM 19:57 → SUATTDRO 22:24 → 3ANU 22:55
PROVIDERS: ADMIT Student in an Organized Health Care Education/Training Program; ATTEND Family Medicine

== ENCOUNTER 2020-07-10 15:04 | Inpatient (IN) ==
[2020-07-10 17:53] LABS: Basophils % 0.3 %; Eosinophils # 0.1 K/mcL (0.0-0.6); Eosinophils % 0.7 %; Hematocrit 27.9 % (37.5-50.1); Hemoglobin 9.1 g/dL (12.9-16.9); Immature Granulocytes % 0.4 % (0-4); Lymphocytes # 2.1 K/mcL (0.6-4.6); Lymphocytes % 14.3 %; Mean Corpuscular HGB Conc 32.6 g/dL (31.6-35.5); Mean Corpuscular Hemoglobin 28.3 pg (28.0-33.3); Mean Corpuscular Volume 86.6 fL (83.0-100.0); Mean Platelet Volume 8.6 fL (9.4-12.4); Monocytes # 0.9 K/mcL (0.0-1.3); Monocytes % 5.9 %; Neutrophils # 11.3 K/mcL (1.6-8.9); Platelet Count 806 K/mcL (140-400); Red Blood Count 3.22 M/mcL (4.19-5.50); Red Cell Distribution Width 14.7 % (11.5-14.5); Segmented Neutrophils % 78.4 %; White Blood Count 14.4 K/mcL (4.3-11.1)
[2020-07-10 18:12] LABS: Alanine Aminotransferase 12 Units/L (7-52); Albumin/Globulin Ratio 0.6 (1.1-2.2); Alkaline Phosphatase 77 Units/L (34-104); Aspartate Amino Transferase 14 Units/L (13-39); BUN/Creatinine Ratio 16 (6-26); Bilirubin,Total 0.4 mg/dL (0.3-1.0); Blood Urea Nitrogen 10 mg/dL (6-20); Calcium 8.7 mg/dL (8.6-10.3); Carbon Dioxide 27 mEq/L (23-29); Chloride 101 mEq/L (98-107); Creatine Kinase 54 Units/L (30-223); Globulin 5.3 g/dL (2.4-3.5); Glucose 98 mg/dL (70-105); Osmolality,Calculated 281 (280-300); Potassium 3.5 mEq/L (3.5-5.1); Sodium 136 mEq/L (136-145); Total Protein 8.3 g/dL (6.4-8.9); eGFR For African Americans > 60 (> 60); eGFR For Non-African Americans > 60 (> 60)
[2020-07-10] MEDS ORDERED: Gadolinium Contrast Agent (WT Based) IV PRN (18:14)
[2020-07-10 18:19] LABS: Bacteria,Urine Few per hpf (None-Few); Bilirubin,Urine Negative (Negative); Blood,Urine Negative (Negative); Clarity,Urine Clear (Clear); Color,Urine Yellow (Yellow); Glucose,Urine (UA) Normal (Normal); Ketones,Urine Negative (Negative); Leukocyte Esterase,Urine Negative (Negative); Mucus,Urine Many per lpf (None-Few); Nitrite,Urine Negative (Negative); Protein,Urine 70 mg/dL (Neg-Trace); RBC,Urine 0-3 per hpf (0-3); Specific Gravity,Urine > 1.030 (1.010-1.025); Squamous Epithelial Cell,Urine Few per hpf (None-Few); WBC,Urine 0-3 per hpf (0-3)
[2020-07-10] MEDS ORDERED: Isovue-370 500 ML BOTTLE IVP ONE (18:26)
[2020-07-10 18:35] LABS: C-Reactive Protein 170 mg/L (Less than 10)
[2020-07-10 18:37] LABS: INR 1.3; Prothrombin Time 15.3 Seconds (9.4-12.1)
[2020-07-10 18:40] LABS: Activated Partial Thrombo Time 31.9 Seconds (26.0-36.0)
[2020-07-10] MEDS ORDERED: *HR* HYDROcodone/Acet 5/325 mg TABLET PO ONE (19:07)
[2020-07-10] MEDS ORDERED: Ketorolac 15 MG/ML VIAL IVP ONE (19:07)
[2020-07-10] MEDS ORDERED: Naloxone 0.4 MG/ML INJ IVP PRN (22:55)
[2020-07-10] MEDS ORDERED: *HR* HYDROcodone/Acet 5/325 mg TABLET PO PRN (22:55)
[2020-07-10] MEDS ORDERED: Acetaminophen 325 MG TABLET PO PRN (22:55)
[2020-07-10] MEDS ORDERED: Ondansetron 4 MG/2 ML VIAL IVP PRN (22:55)
[2020-07-11] MEDS: *HR* OxyCODONE Immed Rel 5 MG TABLET PO PRN ×5 (00:20→21:18)
[2020-07-11] MEDS: Vancomycin 1,500 MG/265 ML IV.SOLN IVPB SCH ×4 (01:04→23:30)
[2020-07-11] MEDS: Melatonin 3 MG TABLET PO PRN ×2 (01:11→22:08)
[2020-07-11] MEDS ORDERED: *HR* Heparin 5,000 UNIT/ML VIAL SQ SCH (06:00)
[2020-07-11] MEDS: Pantoprazole 40 MG VIAL IVP SCH (06:17)
[2020-07-11] MEDS ORDERED: *HR* LORazepam 2 MG/ML VIAL IVP ONE (10:36)
[2020-07-11] MEDS ORDERED: hydrOXYzine pamoate 25 MG CAPSULE PO PRN (21:57)
[2020-07-12] MEDS: *HR* OxyCODONE Immed Rel 5 MG TABLET PO PRN ×5 (01:14→21:04)
[2020-07-12] MEDS: Pantoprazole 40 MG VIAL IVP SCH (05:33)
[2020-07-12 06:54] LABS: Basophils # 0.1 K/mcL (0.0-0.2); Basophils % 0.6 %; Eosinophils # 0.1 K/mcL (0.0-0.6); Eosinophils % 1.3 %; Hemoglobin 8.3 g/dL (12.9-16.9); Immature Granulocytes % 0.5 % (0-4); Lymphocytes # 1.8 K/mcL (0.6-4.6); Mean Corpuscular HGB Conc 31.9 g/dL (31.6-35.5); Mean Corpuscular Volume 84.7 fL (83.0-100.0); Mean Platelet Volume 8.5 fL (9.4-12.4); Monocytes # 0.8 K/mcL (0.0-1.3); Platelet Count 616 K/mcL (140-400); Red Blood Count 3.07 M/mcL (4.19-5.50); Red Cell Distribution Width 14.7 % (11.5-14.5); Segmented Neutrophils % 68.6 %; White Blood Count 8.8 K/mcL (4.3-11.1)
[2020-07-12] MEDS: Vancomycin 1,500 MG/265 ML IV.SOLN IVPB SCH ×2 (09:02→14:38)
[2020-07-12 10:13] LABS: Adenovirus Not Detected (Not Detect); Bordetella Pertussis Not Detected (Not Detect); Chlamydophila pneumoniae Not Detected (Not Detect); Coronavirus 229E Not Detected (Not Detect); Coronavirus HKU1 Not Detected (Not Detect); Coronavirus NL63 Not Detected (Not Detect); Coronavirus OC43 Not Detected (Not Detect); Human Metapneumovirus Not Detected (Not Detect); Human Rhinovirus/Enterovirus Not Detected (Not Detect); Influenza A Subtype 2009 H1 Not Detected (Not Detect); Influenza B Not Detected (Not Detect); Mycoplasma pneumoniae Not Detected (Not Detect); Parainfluenza Virus 1 Not Detected (Not Detect); Parainfluenza Virus 2 Not Detected (Not Detect); Parainfluenza Virus 3 Not Detected (Not Detect); Parainfluenza Virus 4 Not Detected (Not Detect); Respiratory Syncytial Virus Not Detected (Not Detect); SARS-CoV-2 Not Detected (Not Detect)
[2020-07-12] MEDS ORDERED: Morphine Sulfate 2 MG/ML SYRINGE IVP ONE (12:16)
[2020-07-12 13:55] LABS: Alanine Aminotransferase 10 Units/L (7-52); Albumin 2.7 g/dL (3.5-5.7); Albumin/Globulin Ratio 0.6 (1.1-2.2); Alkaline Phosphatase 73 Units/L (34-104); Aspartate Amino Transferase 15 Units/L (13-39); BUN/Creatinine Ratio 16 (6-26); Bilirubin,Total 0.3 mg/dL (0.3-1.0); Blood Urea Nitrogen 9 mg/dL (6-20); Calcium 8.5 mg/dL (8.6-10.3); Carbon Dioxide 23 mEq/L (23-29); Chloride 102 mEq/L (98-107); Globulin 4.8 g/dL (2.4-3.5); Glucose 93 mg/dL (70-105); Osmolality,Calculated 276 (280-300); Potassium 4.1 mEq/L (3.5-5.1); Sodium 134 mEq/L (136-145); Total Protein 7.5 g/dL (6.4-8.9); eGFR For African Americans > 60 (> 60); eGFR For Non-African Americans > 60 (> 60)
[2020-07-12] MEDS ORDERED: *HR* LORazepam 2 MG/ML VIAL IVP ONE (15:00)
[2020-07-12] MEDS ORDERED: *HR* FentaNYL (PF) 100 MCG/2 ML VIAL ONE (16:36)
[2020-07-12] MEDS ORDERED: *HR* Remifentanil 1 MG VIAL IVP ONE ×2 (16:36→18:31)
[2020-07-12] MEDS ORDERED: *HR* Midazolam HCl 2 MG/2 ML VIAL ONE (16:37)
[2020-07-12] MEDS ORDERED: *HR* Propofol 200 MG/20 ML VIAL IVP ONE ×2 (16:37→17:22)
[2020-07-12] MEDS ORDERED: Lidocaine -MPF 2% 2 ML VIAL ONE (16:37)
[2020-07-12] MEDS ORDERED: *HR* Succinylcholine 200 MG/10 ML VIAL IVP ONE (16:37)
[2020-07-12] MEDS ORDERED: *HR* Rocuronium Bromide 50 MG/5 ML VIAL ONE (16:37)
[2020-07-12] MEDS ORDERED: *HR* Phenylephrine 10 MG/ML VIAL ONE (16:42)
[2020-07-12] MEDS ORDERED: Vancomycin 1,000 MG VIAL ONE (16:51)
[2020-07-12] MEDS ORDERED: Bacitracin 50,000 UNIT, Polymyxin B Sulfate 500,000 UNIT, Sodium Chloride IRRigation 1,... IR ONE (17:00)
[2020-07-12] MEDS ORDERED: Lacri-Lube 3.5 GM TUBE ONE (17:18)
[2020-07-12] MEDS ORDERED: *HR* HYDROMORPHONE 2 MG/ML VIAL ONE (18:42)
[2020-07-12] MEDS: *HR* HYDROmorphone PF 0.5 MG/0.5 ML SYRINGE IVP PRN ×3 (19:27→19:49)
[2020-07-12] MEDS ORDERED: Naloxone 0.4 MG/ML INJ IVP PRN (20:28)
[2020-07-12] MEDS ORDERED: Ondansetron 4 MG/2 ML VIAL IVP PRN (20:28)
[2020-07-12] MEDS ORDERED: (Buprenorphine Hcl/Naloxone Hcl [Suboxone 8 Mg-2 Mg S SL SCH (21:00)
[2020-07-12] MEDS: Sulfamethoxazole/Trimeth DS 1 EACH TABLET PO SCH (21:04)
[2020-07-12] MEDS: Acetaminophen 325 MG TABLET PO PRN (22:17)
[2020-07-13] MEDS: *HR* HYDROcodone/Acet 5/325 mg TABLET PO PRN ×3 (02:32→22:34)
[2020-07-13] MEDS: *HR* OxyCODONE Immed Rel 5 MG TABLET PO PRN ×5 (03:11→21:20)
[2020-07-13] MEDS: Acetaminophen 325 MG TABLET PO PRN ×2 (05:53→18:56)
[2020-07-13] MEDS: Sulfamethoxazole/Trimeth DS 1 EACH TABLET PO SCH (08:29)
[2020-07-13 09:37] LABS: Basophils % 0.4 %; Eosinophils # 0.1 K/mcL (0.0-0.6); Eosinophils % 1.5 %; Hematocrit 29.5 % (37.5-50.1); Hemoglobin 9.2 g/dL (12.9-16.9); Immature Granulocytes % 0.4 % (0-4); Lymphocytes # 1.3 K/mcL (0.6-4.6); Lymphocytes % 17.4 %; Mean Corpuscular HGB Conc 31.2 g/dL (31.6-35.5); Mean Corpuscular Hemoglobin 27.2 pg (28.0-33.3); Mean Corpuscular Volume 87.3 fL (83.0-100.0); Mean Platelet Volume 8.5 fL (9.4-12.4); Monocytes # 0.5 K/mcL (0.0-1.3); Monocytes % 7.3 %; Neutrophils # 5.4 K/mcL (1.6-8.9); Platelet Count 534 K/mcL (140-400); Red Blood Count 3.38 M/mcL (4.19-5.50); Red Cell Distribution Width 14.7 % (11.5-14.5); White Blood Count 7.4 K/mcL (4.3-11.1)
[2020-07-13 09:54] LABS: BUN/Creatinine Ratio 13 (6-26); Blood Urea Nitrogen 10 mg/dL (6-20); Calcium 8.4 mg/dL (8.6-10.3); Carbon Dioxide 23 mEq/L (23-29); Chloride 99 mEq/L (98-107); Glucose 136 mg/dL (70-105); Osmolality,Calculated 277 (280-300); Potassium 4.2 mEq/L (3.5-5.1); Sodium 133 mEq/L (136-145); eGFR For African Americans > 60 (> 60); eGFR For Non-African Americans > 60 (> 60)
[2020-07-13] MEDS ORDERED: *HR* HYDROcodone/Acet 5/325 mg TABLET PO PRN (11:33)
[2020-07-13] MEDS ORDERED: hydrOXYzine pamoate 25 MG CAPSULE PO PRN (11:33)
[2020-07-13] MEDS ORDERED: *HR* LORazepam 0.5 MG TABLET PO ONE (11:34)
[2020-07-13] MEDS: Vancomycin 1,500 MG/265 ML IV.SOLN IVPB SCH ×2 (13:15→21:21)
[2020-07-13] MEDS ORDERED: 0.9 % Sodium Chloride 1,000 ML IVC ONE (17:10)
[2020-07-13] MEDS ORDERED: *HR* OxyCODONE Immed Rel 5 MG TABLET PO PRN (17:11)
[2020-07-14] MEDS: *HR* OxyCODONE Immed Rel 5 MG TABLET PO PRN ×4 (03:29→20:19)
[2020-07-14] MEDS: *HR* HYDROcodone/Acet 5/325 mg TABLET PO PRN (05:24)
[2020-07-14] MEDS: Vancomycin 1,500 MG/265 ML IV.SOLN IVPB SCH ×3 (05:25→20:30)
[2020-07-14] MEDS ORDERED: Morphine Sulfate 2 MG/ML SYRINGE IVP ONE (10:07)
[2020-07-14] MEDS ORDERED: *HR* OxyCODONE Immed Rel 5 MG TABLET PO PRN (10:08)
[2020-07-14] MEDS: Nicotine 14 MG PATCH.TD24 TD SCH (10:59)
[2020-07-14 12:12] LABS: Basophils % 0.5 %; Eosinophils # 0.2 K/mcL (0.0-0.6); Hematocrit 26.8 % (37.5-50.1); Hemoglobin 8.6 g/dL (12.9-16.9); Immature Granulocytes % 0.4 % (0-4); Lymphocytes % 12.6 %; Mean Corpuscular HGB Conc 32.1 g/dL (31.6-35.5); Mean Corpuscular Hemoglobin 26.8 pg (28.0-33.3); Mean Corpuscular Volume 83.5 fL (83.0-100.0); Mean Platelet Volume 8.9 fL (9.4-12.4); Monocytes # 0.6 K/mcL (0.0-1.3); Monocytes % 8.1 %; Neutrophils # 6.1 K/mcL (1.6-8.9); Platelet Count 381 K/mcL (140-400); Red Blood Count 3.21 M/mcL (4.19-5.50); Red Cell Distribution Width 14.3 % (11.5-14.5); Segmented Neutrophils % 76.4 %; White Blood Count 7.9 K/mcL (4.3-11.1)
[2020-07-14 12:28] LABS: BUN/Creatinine Ratio 17 (6-26); Blood Urea Nitrogen 11 mg/dL (6-20); Calcium 8.2 mg/dL (8.6-10.3); Carbon Dioxide 22 mEq/L (23-29); Chloride 98 mEq/L (98-107); Glucose 96 mg/dL (70-105); Osmolality,Calculated 267 (280-300); Potassium 4.3 mEq/L (3.5-5.1); Sodium 129 mEq/L (136-145); Vancomycin,Trough 15 mcg/mL (5-10); eGFR For African Americans > 60 (> 60); eGFR For Non-African Americans > 60 (> 60)
[2020-07-14] MEDS: Acetaminophen 325 MG TABLET PO PRN (20:18)
[2020-07-15] MEDS: *HR* OxyCODONE Immed Rel 5 MG TABLET PO PRN ×6 (00:20→21:06)
[2020-07-15 01:49] LABS: Basophils # 0.1 K/mcL (0.0-0.2); Basophils % 0.7 %; Eosinophils # 0.4 K/mcL (0.0-0.6); Eosinophils % 5.1 %; Hematocrit 25.9 % (37.5-50.1); Hemoglobin 8.3 g/dL (12.9-16.9); Immature Granulocytes % 0.6 % (0-4); Lymphocytes # 1.5 K/mcL (0.6-4.6); Lymphocytes % 22.3 %; Mean Corpuscular Hemoglobin 26.7 pg (28.0-33.3); Mean Corpuscular Volume 83.3 fL (83.0-100.0); Monocytes # 0.7 K/mcL (0.0-1.3); Monocytes % 9.8 %; Neutrophils # 4.2 K/mcL (1.6-8.9); Platelet Count 388 K/mcL (140-400); Red Blood Count 3.11 M/mcL (4.19-5.50); Red Cell Distribution Width 14.4 % (11.5-14.5); Segmented Neutrophils % 61.5 %; White Blood Count 6.8 K/mcL (4.3-11.1)
[2020-07-15 02:01] LABS: BUN/Creatinine Ratio 27 (6-26); Blood Urea Nitrogen 15 mg/dL (6-20); Calcium 8.1 mg/dL (8.6-10.3); Carbon Dioxide 22 mEq/L (23-29); Chloride 101 mEq/L (98-107); Glucose 113 mg/dL (70-105); Osmolality,Calculated 278 (280-300); Sodium 133 mEq/L (136-145); eGFR For African Americans > 60 (> 60); eGFR For Non-African Americans > 60 (> 60)
[2020-07-15] MEDS: Vancomycin 1,500 MG/265 ML IV.SOLN IVPB SCH ×3 (05:18→20:29)
[2020-07-15] MEDS: Nicotine 14 MG PATCH.TD24 TD SCH (08:42)
[2020-07-15] MEDS ORDERED: *HR* OxyCODONE/APAP 5/325 TABLET PO ONE (10:51)
[2020-07-15 11:57] LABS: C-Reactive Protein 142 mg/L (Less than 10)
[2020-07-15] MEDS ORDERED: Lidocaine -MPF 1% 5 ML AMPUL INFILT ONE (14:46)
[2020-07-15] MEDS ORDERED: Ondansetron 4 MG/2 ML VIAL IVP PRN (21:32)
[2020-07-16] MEDS: *HR* OxyCODONE Immed Rel 5 MG TABLET PO PRN ×6 (01:10→22:19)
[2020-07-16 04:47] LABS: Basophils # 0.1 K/mcL (0.0-0.2); Basophils % 0.6 %; Eosinophils # 0.2 K/mcL (0.0-0.6); Eosinophils % 2.7 %; Hematocrit 26.8 % (37.5-50.1); Hemoglobin 8.4 g/dL (12.9-16.9); Immature Granulocytes % 0.2 % (0-4); Lymphocytes # 1.6 K/mcL (0.6-4.6); Lymphocytes % 20.2 %; Mean Corpuscular HGB Conc 31.3 g/dL (31.6-35.5); Mean Corpuscular Hemoglobin 26.6 pg (28.0-33.3); Mean Corpuscular Volume 84.8 fL (83.0-100.0); Monocytes # 0.8 K/mcL (0.0-1.3); Monocytes % 9.7 %; Neutrophils # 5.4 K/mcL (1.6-8.9); Platelet Count 381 K/mcL (140-400); Red Blood Count 3.16 M/mcL (4.19-5.50); Red Cell Distribution Width 14.3 % (11.5-14.5); Segmented Neutrophils % 66.6 %; White Blood Count 8.1 K/mcL (4.3-11.1)
[2020-07-16 05:04] LABS: BUN/Creatinine Ratio 23 (6-26); Blood Urea Nitrogen 15 mg/dL (6-20); Calcium 8.5 mg/dL (8.6-10.3); Carbon Dioxide 25 mEq/L (23-29); Chloride 98 mEq/L (98-107); Glucose 105 mg/dL (70-105); Osmolality,Calculated 271 (280-300); Potassium 4.1 mEq/L (3.5-5.1); Sodium 130 mEq/L (136-145); eGFR For African Americans > 60 (> 60); eGFR For Non-African Americans > 60 (> 60)
[2020-07-16 05:25] LABS: Vancomycin,Trough 14 mcg/mL (5-10)
[2020-07-16] MEDS: Vancomycin 1,500 MG/265 ML IV.SOLN IVPB SCH ×3 (05:46→21:35)
[2020-07-16] MEDS: Nicotine 14 MG PATCH.TD24 TD SCH (09:18)
[2020-07-16] MEDS ORDERED: 0.9 % Sodium Chloride 500 ML IVC ONE (12:43)
[2020-07-16] MEDS ORDERED: Lidocaine Viscous Oral Soln 15 ML SOLUTION MM PRN (12:43)
[2020-07-16] MEDS ORDERED: Lidocaine -MPF 2% 5 ML VIAL SQ ONE (17:09)
[2020-07-16] MEDS ORDERED: *HR* Propofol 500 MG/50 ML BOTTLE IVP ONE (17:09)
[2020-07-16] MEDS: Acetaminophen 325 MG TABLET PO PRN (21:45)
[2020-07-17] MEDS: *HR* OxyCODONE Immed Rel 5 MG TABLET PO PRN ×6 (02:21→22:34)
[2020-07-17] MEDS: Vancomycin 1,500 MG/265 ML IV.SOLN IVPB SCH ×3 (06:22→21:08)
[2020-07-17] MEDS: *HR* Enoxaparin 40 MG/0.4 ML SYRINGE SQ SCH (06:22)
[2020-07-17] MEDS: Nicotine 14 MG PATCH.TD24 TD SCH (09:59)
[2020-07-18] MEDS: *HR* OxyCODONE Immed Rel 5 MG TABLET PO PRN ×5 (02:24→18:34)
[2020-07-18] MEDS: Vancomycin 1,750 MG/517.5 ML IV.SOLN IVPB SCH ×2 (06:07→14:19)
[2020-07-18] MEDS: *HR* Enoxaparin 40 MG/0.4 ML SYRINGE SQ SCH (06:07)
[2020-07-18] MEDS: Nicotine 14 MG PATCH.TD24 TD SCH (10:27)
[2020-07-18 14:53] VITALS: BP 117/68
[2020-07-18 16:55] LABS: Adenovirus Not Detected (Not Detect); Coronavirus 229E Not Detected (Not Detect); Coronavirus HKU1 Not Detected (Not Detect); Coronavirus NL63 Not Detected (Not Detect); Coronavirus OC43 Not Detected (Not Detect)
[2020-07-18 16:56] LABS: Bordetella Pertussis Not Detected (Not Detect); Chlamydophila pneumoniae Not Detected (Not Detect); Human Metapneumovirus Not Detected (Not Detect); Human Rhinovirus/Enterovirus Not Detected (Not Detect); Influenza A Subtype 2009 H1 Not Detected (Not Detect); Influenza B Not Detected (Not Detect); Mycoplasma pneumoniae Not Detected (Not Detect); Parainfluenza Virus 1 Not Detected (Not Detect); Parainfluenza Virus 2 Not Detected (Not Detect); Parainfluenza Virus 3 Not Detected (Not Detect); Parainfluenza Virus 4 Not Detected (Not Detect); Respiratory Syncytial Virus Not Detected (Not Detect); SARS-CoV-2 Not Detected (Not Detect)
[2020-07-18] MEDS: Acetaminophen 325 MG TABLET PO PRN (18:33)
== END 2020-07-18 19:20 | DRG 710 ==
LOC: 3NENU 15:04 → EMEROOARM 15:04 → SUATTDRO 23:09 → 3NENU 23:28
PROVIDERS: ADMIT Internal Medicine; ATTEND Internal Medicine

== ENCOUNTER 2020-07-22 10:19 | Inpatient (IN) ==
[2020-07-22] MEDS ORDERED: Piperacillin/Tazobactam 3.375 GM in Water for inj. (sterile) 20 ML IVP ONE (10:28)
[2020-07-22] MEDS ORDERED: Vancomycin 2,000 MG/520 ML IV.SOLN IVPB ONE (10:28)
[2020-07-22] MEDS ORDERED: 0.9 % Sodium Chloride 1,000 ML IVC ONE (10:28)
[2020-07-22] MEDS ORDERED: Gadolinium Contrast Agent (WT Based) IV PRN (10:29)
[2020-07-22] MEDS ORDERED: Isovue-370 500 ML BOTTLE IVP ONE (10:53)
[2020-07-22 12:57] LABS: Basophils # 0.1 K/mcL (0.0-0.2); Basophils % 0.7 %; Eosinophils # 0.4 K/mcL (0.0-0.6); Eosinophils % 4.4 %; Hemoglobin 8.3 g/dL (12.9-16.9); Immature Granulocytes % 0.8 % (0-4); Lymphocytes # 1.4 K/mcL (0.6-4.6); Lymphocytes % 14.7 %; Mean Corpuscular HGB Conc 29.6 g/dL (31.6-35.5); Mean Corpuscular Volume 87.8 fL (83.0-100.0); Monocytes # 0.7 K/mcL (0.0-1.3); Monocytes % 7.4 %; Neutrophils # 6.9 K/mcL (1.6-8.9); Platelet Count 611 K/mcL (140-400); Red Blood Count 3.19 M/mcL (4.19-5.50); White Blood Count 9.6 K/mcL (4.3-11.1)
[2020-07-22 12:58] LABS: INR 1.2; Prothrombin Time 14.1 Seconds (9.4-12.1)
[2020-07-22 13:01] LABS: Activated Partial Thrombo Time 37.8 Seconds (26.0-36.0)
[2020-07-22] MEDS ORDERED: Lidocaine -MPF 1% 5 ML AMPUL INFILT ONE (13:06)
[2020-07-22 13:15] LABS: Alanine Aminotransferase 50 Units/L (7-52); Albumin 2.9 g/dL (3.5-5.7); Albumin/Globulin Ratio 0.6 (1.1-2.2); Alkaline Phosphatase 156 Units/L (34-104); Aspartate Amino Transferase 25 Units/L (13-39); BUN/Creatinine Ratio 25 (6-26); Bilirubin,Direct 0.1 mg/dL (0.0-0.2); Bilirubin,Indirect 0.1 mg/dL (0.0-1.0); Bilirubin,Total 0.2 mg/dL (0.3-1.0); Blood Urea Nitrogen 16 mg/dL (6-20); Carbon Dioxide 26 mEq/L (23-29); Chloride 107 mEq/L (98-107); Globulin 5.2 g/dL (2.4-3.5); Glucose 103 mg/dL (70-105); Magnesium 2.4 mg/dL (1.6-2.6); Osmolality,Calculated 289 (280-300); Phosphorous 5.3 mg/dL (2.7-4.5); Potassium 4.2 mEq/L (3.5-5.1); Sodium 139 mEq/L (136-145); Total Protein 8.1 g/dL (6.4-8.9); Troponin I < 0.03 ng/mL (< 0.04); eGFR For African Americans > 60 (> 60); eGFR For Non-African Americans > 60 (> 60)
[2020-07-22 13:37] LABS: Bacteria,Urine Few per hpf (None-Few); Bilirubin,Urine Negative (Negative); Blood,Urine Negative (Negative); Clarity,Urine Turbid (Clear); Color,Urine Yellow (Yellow); Glucose,Urine (UA) Normal (Normal); Granular Casts,Urine Few per lpf (None Seen); Hyaline Casts,Urine Few per lpf (None Seen); Ketones,Urine Negative (Negative); Leukocyte Esterase,Urine Negative (Negative); Mucus,Urine Few per lpf (None-Few); Nitrite,Urine Negative (Negative); PH,Urine 5.5 pH Units (5.0-8.0); Protein,Urine 30 mg/dL (Neg-Trace); RBC,Urine 0-3 per hpf (0-3); Specific Gravity,Urine 1.025 (1.010-1.025); Squamous Epithelial Cell,Urine Few per hpf (None-Few); Urobilinogen,Urine Normal (Normal)
[2020-07-22] MEDS ORDERED: Morphine Sulfate 2 MG/ML SYRINGE IVP ONE (13:45)
[2020-07-22] MEDS: *HR* OxyCODONE Immed Rel 5 MG TABLET PO PRN (17:38)
[2020-07-22] MEDS: *HR* Heparin 5,000 UNIT/ML VIAL SQ SCH (17:39)
[2020-07-22] MEDS: *HR* HYDROcodone/Acet 5/325 mg TABLET PO PRN (20:44)
[2020-07-22] MEDS: tiZANidine 4 MG TABLET PO PRN (23:18)
[2020-07-23] MEDS: *HR* OxyCODONE Immed Rel 5 MG TABLET PO PRN ×4 (00:46→21:17)
[2020-07-23 01:12] LABS: White Blood Count 7.6 K/mcL (4.3-11.1)
[2020-07-23 01:13] LABS: Basophils # 0.1 K/mcL (0.0-0.2); Basophils % 0.8 %; Eosinophils # 0.7 K/mcL (0.0-0.6); Eosinophils % 9.2 %; Hematocrit 24.9 % (37.5-50.1); Hemoglobin 7.6 g/dL (12.9-16.9); Immature Granulocytes % 0.7 % (0-4); Lymphocytes # 1.8 K/mcL (0.6-4.6); Lymphocytes % 23.6 %; Mean Corpuscular HGB Conc 30.5 g/dL (31.6-35.5); Mean Corpuscular Volume 88.6 fL (83.0-100.0); Mean Platelet Volume 8.9 fL (9.4-12.4); Monocytes # 0.6 K/mcL (0.0-1.3); Neutrophils # 4.4 K/mcL (1.6-8.9); Platelet Count 527 K/mcL (140-400); Red Blood Count 2.81 M/mcL (4.19-5.50); Red Cell Distribution Width 15.6 % (11.5-14.5); Segmented Neutrophils % 57.7 %
[2020-07-23 01:30] LABS: Alanine Aminotransferase 40 Units/L (7-52); Albumin 2.6 g/dL (3.5-5.7); Albumin/Globulin Ratio 0.6 (1.1-2.2); Alkaline Phosphatase 124 Units/L (34-104); Aspartate Amino Transferase 21 Units/L (13-39); BUN/Creatinine Ratio 23 (6-26); Bilirubin,Total 0.2 mg/dL (0.3-1.0); Blood Urea Nitrogen 15 mg/dL (6-20); Calcium 8.1 mg/dL (8.6-10.3); Carbon Dioxide 25 mEq/L (23-29); Chloride 105 mEq/L (98-107); Globulin 4.6 g/dL (2.4-3.5); Glucose 150 mg/dL (70-105); Osmolality,Calculated 288 (280-300); Potassium 3.6 mEq/L (3.5-5.1); Sodium 137 mEq/L (136-145); Total Protein 7.2 g/dL (6.4-8.9); eGFR For African Americans > 60 (> 60); eGFR For Non-African Americans > 60 (> 60)
[2020-07-23] MEDS: Vancomycin 1,500 MG/265 ML IV.SOLN IVPB SCH ×3 (01:58→18:11)
[2020-07-23] MEDS: *HR* HYDROcodone/Acet 5/325 mg TABLET PO PRN ×2 (04:58→17:18)
[2020-07-23] MEDS: *HR* Heparin 5,000 UNIT/ML VIAL SQ SCH ×2 (04:58→17:17)
[2020-07-23] MEDS ORDERED: Vancomycin 1 EACH in 0.9 % Sodium Chloride 250 ML IVPB SCH (09:00)
[2020-07-24] MEDS: Vancomycin 1,500 MG/265 ML IV.SOLN IVPB SCH (01:33)
[2020-07-24 04:41] LABS: Basophils % 0.4 %; Eosinophils # 0.6 K/mcL (0.0-0.6); Hematocrit 25.2 % (37.5-50.1); Hemoglobin 7.4 g/dL (12.9-16.9); Immature Granulocytes % 0.4 % (0-4); Lymphocytes # 1.6 K/mcL (0.6-4.6); Lymphocytes % 21.7 %; Mean Corpuscular HGB Conc 29.4 g/dL (31.6-35.5); Mean Corpuscular Hemoglobin 25.8 pg (28.0-33.3); Mean Corpuscular Volume 87.8 fL (83.0-100.0); Mean Platelet Volume 8.9 fL (9.4-12.4); Monocytes # 0.5 K/mcL (0.0-1.3); Monocytes % 6.2 %; Neutrophils # 4.6 K/mcL (1.6-8.9); Platelet Count 546 K/mcL (140-400); Red Blood Count 2.87 M/mcL (4.19-5.50); Red Cell Distribution Width 15.9 % (11.5-14.5); Segmented Neutrophils % 63.3 %; White Blood Count 7.2 K/mcL (4.3-11.1)
[2020-07-24 04:52] LABS: BUN/Creatinine Ratio 26 (6-26); Blood Urea Nitrogen 18 mg/dL (6-20); Calcium 8.3 mg/dL (8.6-10.3); Carbon Dioxide 28 mEq/L (23-29); Chloride 105 mEq/L (98-107); Glucose 105 mg/dL (70-105); Osmolality,Calculated 286 (280-300); Potassium 3.9 mEq/L (3.5-5.1); Sodium 137 mEq/L (136-145); eGFR For African Americans > 60 (> 60); eGFR For Non-African Americans > 60 (> 60)
[2020-07-24] MEDS: *HR* Heparin 5,000 UNIT/ML VIAL SQ SCH ×2 (05:21→17:49)
[2020-07-24] MEDS ORDERED: *HR* OxyCODONE Immed Rel 5 MG TABLET PO PRN ×2 (11:29→11:30)
[2020-07-24] MEDS: Vancomycin 1,750 MG/517.5 ML IV.SOLN IVPB SCH (21:49)
[2020-07-25] MEDS: *HR* Heparin 5,000 UNIT/ML VIAL SQ SCH ×2 (05:11→17:25)
[2020-07-25 06:12] LABS: Immature Granulocytes % 0.6 % (0-4); Red Cell Distribution Width 15.9 % (11.5-14.5)
[2020-07-25 06:28] LABS: Basophils % 0.6 %; Eosinophils # 0.6 K/mcL (0.0-0.6); Eosinophils % 9.4 %; Hematocrit 26.6 % (37.5-50.1); Hemoglobin 8.3 g/dL (12.9-16.9); Lymphocytes # 1.4 K/mcL (0.6-4.6); Lymphocytes % 21.3 %; Mean Corpuscular HGB Conc 31.2 g/dL (31.6-35.5); Mean Corpuscular Hemoglobin 27.2 pg (28.0-33.3); Mean Corpuscular Volume 87.2 fL (83.0-100.0); Mean Platelet Volume 9.1 fL (9.4-12.4); Monocytes # 0.3 K/mcL (0.0-1.3); Neutrophils # 4.2 K/mcL (1.6-8.9); Platelet Count 514 K/mcL (140-400); Red Blood Count 3.05 M/mcL (4.19-5.50); Segmented Neutrophils % 63.1 %; White Blood Count 6.6 K/mcL (4.3-11.1)
[2020-07-25 06:31] LABS: BUN/Creatinine Ratio 19 (6-26); Blood Urea Nitrogen 14 mg/dL (6-20); Calcium 8.8 mg/dL (8.6-10.3); Carbon Dioxide 31 mEq/L (23-29); Chloride 100 mEq/L (98-107); Glucose 118 mg/dL (70-105); Osmolality,Calculated 286 (280-300); Potassium 3.9 mEq/L (3.5-5.1); Sodium 137 mEq/L (136-145); eGFR For African Americans > 60 (> 60); eGFR For Non-African Americans > 60 (> 60)
[2020-07-25] MEDS: Vancomycin 1,750 MG/517.5 ML IV.SOLN IVPB SCH ×2 (09:02→22:08)
[2020-07-25] MEDS ORDERED: *HR* Alteplase (Cathflo) 2 MG VIAL IVP ONE (11:53)
[2020-07-25] MEDS: tiZANidine 4 MG TABLET PO PRN (16:11)
[2020-07-26] MEDS: *HR* Heparin 5,000 UNIT/ML VIAL SQ SCH ×2 (04:32→18:09)
[2020-07-26 09:35] LABS: Blood Urea Nitrogen 18 mg/dL (6-20); eGFR For African Americans > 60 (> 60); eGFR For Non-African Americans > 60 (> 60)
[2020-07-26] MEDS: Vancomycin 1,750 MG/517.5 ML IV.SOLN IVPB SCH (09:59)
[2020-07-26] MEDS: Vancomycin 2,000 MG/520 ML IV.SOLN IVPB SCH ×2 (10:35→21:05)
[2020-07-26] MEDS: Acetaminophen 325 MG TABLET PO PRN (12:02)
[2020-07-26] MEDS: tiZANidine 4 MG TABLET PO PRN (12:03)
[2020-07-27] MEDS: tiZANidine 4 MG TABLET PO PRN ×3 (03:16→20:15)
[2020-07-27] MEDS: *HR* Heparin 5,000 UNIT/ML VIAL SQ SCH ×2 (06:00→16:35)
[2020-07-27] MEDS: Vancomycin 2,000 MG/520 ML IV.SOLN IVPB SCH (10:25)
[2020-07-27] MEDS: Ondansetron 4 MG/2 ML VIAL IVP PRN (11:43)
[2020-07-27] MEDS: Acetaminophen 325 MG TABLET PO PRN ×2 (13:25→20:15)
[2020-07-27 22:03] LABS: BUN/Creatinine Ratio 23 (6-26); Blood Urea Nitrogen 17 mg/dL (6-20); eGFR For African Americans > 60 (> 60); eGFR For Non-African Americans > 60 (> 60)
[2020-07-27] MEDS: Vancomycin 1,500 MG/265 ML IV.SOLN IVPB SCH (23:09)
[2020-07-28] MEDS: *HR* Heparin 5,000 UNIT/ML VIAL SQ SCH ×2 (06:29→17:14)
[2020-07-28] MEDS: Vancomycin 1,500 MG/265 ML IV.SOLN IVPB SCH ×2 (06:29→16:00)
[2020-07-28] MEDS: Acetaminophen 325 MG TABLET PO PRN ×2 (13:41→20:00)
[2020-07-28] MEDS: tiZANidine 4 MG TABLET PO PRN ×2 (13:45→22:19)
[2020-07-29] MEDS: Melatonin 3 MG TABLET PO PRN (00:15)
[2020-07-29] MEDS: Vancomycin 1,500 MG/265 ML IV.SOLN IVPB SCH ×3 (01:10→17:09)
[2020-07-29 03:45] LABS: Basophils # 0.1 K/mcL (0.0-0.2); Basophils % 0.5 %; Eosinophils # 0.1 K/mcL (0.0-0.6); Eosinophils % 0.6 %; Immature Granulocytes % 0.5 % (0-4); Lymphocytes # 0.8 K/mcL (0.6-4.6); Mean Corpuscular Hemoglobin 25.6 pg (28.0-33.3); Mean Corpuscular Volume 85.2 fL (83.0-100.0); Mean Platelet Volume 8.8 fL (9.4-12.4); Monocytes # 0.9 K/mcL (0.0-1.3); Monocytes % 6.5 %; Neutrophils # 11.4 K/mcL (1.6-8.9); Platelet Count 326 K/mcL (140-400); Red Blood Count 3.52 M/mcL (4.19-5.50); Red Cell Distribution Width 15.7 % (11.5-14.5); Segmented Neutrophils % 85.9 %
[2020-07-29 03:46] LABS: White Blood Count 13.3 K/mcL (4.3-11.1)
[2020-07-29 03:59] LABS: BUN/Creatinine Ratio 30 (6-26); Blood Urea Nitrogen 22 mg/dL (6-20); Calcium 8.8 mg/dL (8.6-10.3); Carbon Dioxide 24 mEq/L (23-29); Chloride 99 mEq/L (98-107); Glucose 119 mg/dL (70-105); Osmolality,Calculated 276 (280-300); Potassium 4.2 mEq/L (3.5-5.1); Sodium 131 mEq/L (136-145); eGFR For African Americans > 60 (> 60); eGFR For Non-African Americans > 60 (> 60)
[2020-07-29] MEDS: *HR* Heparin 5,000 UNIT/ML VIAL SQ SCH ×2 (05:08→17:10)
[2020-07-29] MEDS: tiZANidine 4 MG TABLET PO PRN ×2 (06:33→15:04)
[2020-07-29] MEDS: Ondansetron 4 MG/2 ML VIAL IVP PRN (09:50)
[2020-07-29] MEDS: Acetaminophen 325 MG TABLET PO PRN (15:04)
[2020-07-29] MEDS: Naloxone 0.4 MG/ML INJ IVP PRN (18:29)
[2020-07-30] MEDS: Vancomycin 1,500 MG/265 ML IV.SOLN IVPB SCH ×3 (00:06→15:31)
[2020-07-30] MEDS: *HR* Heparin 5,000 UNIT/ML VIAL SQ SCH ×2 (05:05→16:43)
[2020-07-30] MEDS: tiZANidine 4 MG TABLET PO PRN ×2 (05:49→15:06)
[2020-07-30 06:17] LABS: Basophils # 0.1 K/mcL (0.0-0.2); Eosinophils # 0.2 K/mcL (0.0-0.6); Eosinophils % 2.1 %; Hematocrit 32.7 % (37.5-50.1); Hemoglobin 9.9 g/dL (12.9-16.9); Immature Granulocytes % 0.3 % (0-4); Lymphocytes # 1.3 K/mcL (0.6-4.6); Lymphocytes % 18.1 %; Mean Corpuscular HGB Conc 30.3 g/dL (31.6-35.5); Mean Corpuscular Hemoglobin 26.3 pg (28.0-33.3); Mean Platelet Volume 9.2 fL (9.4-12.4); Monocytes # 0.9 K/mcL (0.0-1.3); Monocytes % 11.9 %; Neutrophils # 4.8 K/mcL (1.6-8.9); Platelet Count 327 K/mcL (140-400); Red Blood Count 3.76 M/mcL (4.19-5.50); Red Cell Distribution Width 15.6 % (11.5-14.5); Segmented Neutrophils % 66.6 %; White Blood Count 7.2 K/mcL (4.3-11.1)
[2020-07-30 06:39] LABS: BUN/Creatinine Ratio 29 (6-26); Blood Urea Nitrogen 28 mg/dL (6-20); Calcium 9.4 mg/dL (8.6-10.3); Carbon Dioxide 25 mEq/L (23-29); Chloride 101 mEq/L (98-107); Glucose 130 mg/dL (70-105); Osmolality,Calculated 289 (280-300); Potassium 4.3 mEq/L (3.5-5.1); Sodium 136 mEq/L (136-145); eGFR For African Americans > 60 (> 60); eGFR For Non-African Americans > 60 (> 60)
[2020-07-30] MEDS: Naloxone 0.4 MG/ML INJ IVP PRN (11:10)
[2020-07-30] MEDS: Vancomycin 2,000 MG/520 ML IV.SOLN IVPB SCH (13:36)
[2020-07-30] MEDS: Acetaminophen IV 1,000 MG/100 ML BAG IVPB SCH (17:58)
[2020-07-31] MEDS: Vancomycin 1,500 MG/265 ML IV.SOLN IVPB SCH ×4 (00:37→23:14)
[2020-07-31] MEDS: Acetaminophen IV 1,000 MG/100 ML BAG IVPB SCH ×5 (00:44→23:15)
[2020-07-31 04:13] LABS: Amphetamine Screen,Urine Negative ng/mL (Cutoff=1000); Barbiturate Screen,Urine Negative ng/mL (Cutoff=200); Benzodiazepines Screen,Urine Negative ng/mL (Cutoff=200); Cannabinoid Screen,Urine Negative ng/mL (Cutoff = 50); Cocaine Screen,Urine Negative ng/mL (Cutoff= 300); Opiate Screen,Urine Positive ng/mL (Cutoff=300); Phencyclidine Screen,Urine Negative ng/mL (Cutoff=25)
[2020-07-31] MEDS: Ondansetron 4 MG/2 ML VIAL IVP PRN (06:11)
[2020-07-31] MEDS: *HR* Heparin 5,000 UNIT/ML VIAL SQ SCH ×2 (06:13→19:38)
[2020-07-31] MEDS: tiZANidine 4 MG TABLET PO PRN ×2 (06:15→16:14)
[2020-08-01] MEDS: tiZANidine 4 MG TABLET PO PRN ×4 (00:18→23:11)
[2020-08-01] MEDS: Ondansetron 4 MG/2 ML VIAL IVP PRN (01:28)
[2020-08-01] MEDS: Acetaminophen IV 1,000 MG/100 ML BAG IVPB SCH ×4 (05:38→23:12)
[2020-08-01] MEDS: *HR* Heparin 5,000 UNIT/ML VIAL SQ SCH ×2 (05:42→19:19)
[2020-08-01] MEDS: Vancomycin 1,500 MG/265 ML IV.SOLN IVPB SCH ×3 (07:58→23:12)
[2020-08-01 16:47] LABS: BUN/Creatinine Ratio 25 (6-26); Blood Urea Nitrogen 14 mg/dL (6-20); Calcium 8.9 mg/dL (8.6-10.3); Carbon Dioxide 25 mEq/L (23-29); Chloride 101 mEq/L (98-107); Glucose 111 mg/dL (70-105); Osmolality,Calculated 277 (280-300); Potassium 4.5 mEq/L (3.5-5.1); Sodium 133 mEq/L (136-145); Vancomycin,Trough 15 mcg/mL (5-10); eGFR For African Americans > 60 (> 60); eGFR For Non-African Americans > 60 (> 60)
[2020-08-01] MEDS: Melatonin 3 MG TABLET PO PRN (19:45)
[2020-08-02 03:53] VITALS: BP 116/79
[2020-08-02] MEDS: Acetaminophen IV 1,000 MG/100 ML BAG IVPB SCH (05:28)
[2020-08-02] MEDS: *HR* Heparin 5,000 UNIT/ML VIAL SQ SCH (05:33)
[2020-08-02] MEDS: Ondansetron 4 MG/2 ML VIAL IVP PRN (06:14)
[2020-08-02] MEDS: Vancomycin 1,500 MG/265 ML IV.SOLN IVPB SCH (07:18)
[2020-08-02] MEDS: *HR* OxyCODONE Immed Rel 5 MG TABLET PO PRN ×2 (09:15→15:16)
[2020-08-02] MEDS: tiZANidine 4 MG TABLET PO PRN (11:10)
[2020-08-02] MEDS ORDERED: Prochlorperazine 10 MG/2 ML VIAL IVP PRN (13:45)
[2020-08-02] MEDS ORDERED: Vancomycin 1,250 MG/262.5 ML IV.SOLN IVPB SCH (18:00)
[2020-08-02] MEDS ORDERED: QUEtiapine Fumarate 100 MG TABLET PO SCH (21:00)
== END 2020-08-02 16:31 | disposition left against medical advice (07) | DRG 49 ==
LOC: 3NENU 10:19 → EMEROOARM 10:19 → SUATTDRO 15:55 → 3NENU 16:33 → 3BNU 07-30 13:26
PROVIDERS: ADMIT Student in an Organized Health Care Education/Training Program; ATTEND Internal Medicine

== ENCOUNTER 2020-08-05 16:22 | Observation (INO) ==
[2020-08-05 17:19] LABS: Basophils # 0.1 K/mcL (0.0-0.2); Eosinophils # 0.1 K/mcL (0.0-0.6); Eosinophils % 1.8 %; Hematocrit 31.5 % (37.5-50.1); Hemoglobin 9.7 g/dL (12.9-16.9); Immature Granulocytes % 0.3 % (0-4); Lymphocytes % 32.3 %; Mean Corpuscular HGB Conc 30.8 g/dL (31.6-35.5); Mean Corpuscular Hemoglobin 25.7 pg (28.0-33.3); Mean Corpuscular Volume 83.6 fL (83.0-100.0); Mean Platelet Volume 8.3 fL (9.4-12.4); Monocytes # 0.6 K/mcL (0.0-1.3); Monocytes % 9.2 %; Neutrophils # 3.4 K/mcL (1.6-8.9); Platelet Count 475 K/mcL (140-400); Red Blood Count 3.77 M/mcL (4.19-5.50); Red Cell Distribution Width 15.9 % (11.5-14.5); Segmented Neutrophils % 55.4 %; White Blood Count 6.1 K/mcL (4.3-11.1)
[2020-08-05] MEDS ORDERED: Vancomycin 2,000 MG/520 ML IV.SOLN IVPB ONE (17:28)
[2020-08-05 17:38] LABS: BUN/Creatinine Ratio 20 (6-26); Blood Urea Nitrogen 14 mg/dL (6-20); Carbon Dioxide 22 mEq/L (23-29); Chloride 104 mEq/L (98-107); Glucose 88 mg/dL (70-105); Osmolality,Calculated 282 (280-300); Potassium 3.8 mEq/L (3.5-5.1); Sodium 136 mEq/L (136-145); eGFR For African Americans > 60 (> 60); eGFR For Non-African Americans > 60 (> 60)
[2020-08-05] MEDS ORDERED: Naloxone 0.4 MG/ML INJ IVP PRN (18:40)
[2020-08-05] MEDS ORDERED: Ondansetron 4 MG/2 ML VIAL IVP PRN (18:40)
[2020-08-05] MEDS: Ketorolac 30 MG/ML VIAL IVP PRN (20:01)
[2020-08-05] MEDS: Acetaminophen 325 MG TABLET PO PRN (22:25)
[2020-08-06] MEDS: Ketorolac 30 MG/ML VIAL IVP PRN ×2 (01:59→08:09)
[2020-08-06 04:02] LABS: BUN/Creatinine Ratio 20 (6-26); Blood Urea Nitrogen 16 mg/dL (6-20); Calcium 8.9 mg/dL (8.6-10.3); Carbon Dioxide 25 mEq/L (23-29); Chloride 105 mEq/L (98-107); Glucose 99 mg/dL (70-105); Osmolality,Calculated 283 (280-300); Potassium 3.9 mEq/L (3.5-5.1); Sodium 136 mEq/L (136-145); eGFR For African Americans > 60 (> 60); eGFR For Non-African Americans > 60 (> 60)
[2020-08-06 04:12] LABS: Basophils # 0.1 K/mcL (0.0-0.2); Basophils % 1.2 %; Eosinophils # 0.2 K/mcL (0.0-0.6); Eosinophils % 2.7 %; Hematocrit 29.7 % (37.5-50.1); Hemoglobin 9.2 g/dL (12.9-16.9); Immature Granulocytes % 0.2 % (0-4); Lymphocytes # 2.3 K/mcL (0.6-4.6); Lymphocytes % 34.2 %; Mean Corpuscular Hemoglobin 26.1 pg (28.0-33.3); Mean Corpuscular Volume 84.4 fL (83.0-100.0); Mean Platelet Volume 8.7 fL (9.4-12.4); Monocytes # 0.7 K/mcL (0.0-1.3); Monocytes % 11.2 %; Neutrophils # 3.3 K/mcL (1.6-8.9); Platelet Count 481 K/mcL (140-400); Red Blood Count 3.52 M/mcL (4.19-5.50); Red Cell Distribution Width 15.9 % (11.5-14.5); Segmented Neutrophils % 50.5 %; White Blood Count 6.6 K/mcL (4.3-11.1)
[2020-08-06] MEDS ORDERED: Vancomycin 1,250 MG/262.5 ML IV.SOLN IVPB SCH (06:00)
[2020-08-06] MEDS: Acetaminophen 325 MG TABLET PO PRN (06:14)
[2020-08-06] MEDS ORDERED: Vancomycin 2,000 MG/520 ML IV.SOLN IVPB ONE (09:00)
[2020-08-06 11:00] VITALS: BP 136/90
== END 2020-08-06 11:26 | disposition left against medical advice (07) ==
LOC: 3NENU 16:22 → EMEROOARM 16:22 → SUATTDRO 18:36 → 3NENU 19:18
PROVIDERS: ADMIT Internal Medicine; ATTEND Internal Medicine

== ENCOUNTER 2020-08-08 00:30 | Inpatient (IN) ==
[2020-08-08] MEDS ORDERED: Isovue-370 500 ML BOTTLE IVP ONE (00:48)
[2020-08-08] MEDS ORDERED: Morphine Sulfate 2 MG/ML SYRINGE IVP ONE ×2 (00:55→04:04)
[2020-08-08] MEDS ORDERED: Vancomycin 2,000 MG/520 ML IV.SOLN IVPB ONE (00:55)
[2020-08-08] MEDS ORDERED: Piperacillin/Tazobactam 3.375 GM in 0.9 % Sodium Chloride Mini Bag 100 ML IVPB ONE (00:55)
[2020-08-08 01:42] LABS: Basophils # 0.1 K/mcL (0.0-0.2); Basophils % 0.4 %; Eosinophils # 0.2 K/mcL (0.0-0.6); Eosinophils % 1.3 %; Hematocrit 32.8 % (37.5-50.1); Hemoglobin 9.9 g/dL (12.9-16.9); Immature Granulocytes % 0.4 % (0-4); Lymphocytes # 0.9 K/mcL (0.6-4.6); Lymphocytes % 5.8 %; Mean Corpuscular HGB Conc 30.2 g/dL (31.6-35.5); Mean Corpuscular Hemoglobin 25.9 pg (28.0-33.3); Mean Corpuscular Volume 85.9 fL (83.0-100.0); Mean Platelet Volume 8.5 fL (9.4-12.4); Monocytes # 0.5 K/mcL (0.0-1.3); Monocytes % 3.4 %; Platelet Count 441 K/mcL (140-400); Red Blood Count 3.82 M/mcL (4.19-5.50); Red Cell Distribution Width 16.1 % (11.5-14.5); Segmented Neutrophils % 88.7 %
[2020-08-08 01:43] LABS: White Blood Count 15.8 K/mcL (4.3-11.1)
[2020-08-08 01:48] LABS: INR 1.2; Prothrombin Time 13.8 Seconds (9.4-12.1)
[2020-08-08 02:01] LABS: Alanine Aminotransferase 21 Units/L (7-52); Albumin 3.3 g/dL (3.5-5.7); Albumin/Globulin Ratio 0.6 (1.1-2.2); Alkaline Phosphatase 117 Units/L (34-104); Aspartate Amino Transferase 16 Units/L (13-39); BUN/Creatinine Ratio 23 (6-26); Bilirubin,Direct 0.2 mg/dL (0.0-0.2); Bilirubin,Indirect 0.3 mg/dL (0.0-1.0); Bilirubin,Total 0.5 mg/dL (0.3-1.0); Blood Urea Nitrogen 19 mg/dL (6-20); Calcium 9.4 mg/dL (8.6-10.3); Carbon Dioxide 22 mEq/L (23-29); Chloride 105 mEq/L (98-107); Globulin 5.2 g/dL (2.4-3.5); Glucose 149 mg/dL (70-105); Magnesium 1.6 mg/dL (1.6-2.6); Osmolality,Calculated 291 (280-300); Phosphorous 2.4 mg/dL (2.7-4.5); Potassium 3.6 mEq/L (3.5-5.1); Sodium 138 mEq/L (136-145); Total Protein 8.5 g/dL (6.4-8.9); Troponin I < 0.03 ng/mL (< 0.04); eGFR For African Americans > 60 (> 60); eGFR For Non-African Americans > 60 (> 60)
[2020-08-08 03:37] LABS: Bilirubin,Urine Negative (Negative); Blood,Urine Negative (Negative); Clarity,Urine Clear (Clear); Color,Urine Yellow (Yellow); Glucose,Urine (UA) Normal (Normal); Ketones,Urine Negative (Negative); Leukocyte Esterase,Urine Negative (Negative); Nitrite,Urine Negative (Negative); PH,Urine 5.5 pH Units (5.0-8.0); Protein,Urine Trace mg/dL (Neg-Trace); Specific Gravity,Urine > 1.030 (1.010-1.025); Urobilinogen,Urine Normal (Normal)
[2020-08-08] MEDS ORDERED: Naloxone 0.4 MG/ML INJ IVP PRN (06:02)
[2020-08-08] MEDS ORDERED: Ondansetron ODT 4 MG TAB.RAPDIS SL PRN (06:02)
[2020-08-08] MEDS: cloNIDine HCL 0.1 MG TABLET PO SCH ×2 (11:15→19:55)
[2020-08-08] MEDS: Acetaminophen 325 MG TABLET PO PRN (11:17)
[2020-08-08] MEDS: Vancomycin 1,250 MG/262.5 ML IV.SOLN IVPB SCH ×2 (11:17→19:55)
[2020-08-08] MEDS ORDERED: *HR* Heparin 5,000 UNIT/ML VIAL SQ SCH (14:00)
[2020-08-08] MEDS: Ketorolac 15 MG/ML VIAL IVP PRN (20:03)
[2020-08-09] MEDS: Vancomycin 1,250 MG/262.5 ML IV.SOLN IVPB SCH ×2 (02:35→11:07)
[2020-08-09] MEDS: Ketorolac 15 MG/ML VIAL IVP PRN ×3 (02:38→19:16)
[2020-08-09] MEDS: *HR* Enoxaparin 40 MG/0.4 ML SYRINGE SQ SCH (05:38)
[2020-08-09 05:51] LABS: Hematocrit 28.7 % (37.5-50.1); Hemoglobin 8.7 g/dL (12.9-16.9); Mean Corpuscular HGB Conc 30.3 g/dL (31.6-35.5); Mean Corpuscular Hemoglobin 25.9 pg (28.0-33.3); Mean Corpuscular Volume 85.4 fL (83.0-100.0); Mean Platelet Volume 9.3 fL (9.4-12.4); Platelet Count 358 K/mcL (140-400); Red Blood Count 3.36 M/mcL (4.19-5.50)
[2020-08-09 05:56] LABS: White Blood Count 5.1 K/mcL (4.3-11.1)
[2020-08-09 06:27] LABS: Magnesium 1.8 mg/dL (1.6-2.6)
[2020-08-09 06:28] LABS: BUN/Creatinine Ratio 24 (6-26); Blood Urea Nitrogen 16 mg/dL (6-20); Calcium 8.6 mg/dL (8.6-10.3); Carbon Dioxide 24 mEq/L (23-29); Chloride 106 mEq/L (98-107); Glucose 83 mg/dL (70-105); Osmolality,Calculated 284 (280-300); Potassium 4.1 mEq/L (3.5-5.1); Sodium 137 mEq/L (136-145); eGFR For African Americans > 60 (> 60); eGFR For Non-African Americans > 60 (> 60)
[2020-08-09] MEDS: cloNIDine HCL 0.1 MG TABLET PO SCH ×2 (09:25→19:16)
[2020-08-09] MEDS: QUEtiapine Fumarate 25 MG TABLET PO PRN (23:33)
[2020-08-10] MEDS: Ketorolac 15 MG/ML VIAL IVP PRN ×4 (02:32→21:07)
[2020-08-10] MEDS: *HR* Enoxaparin 40 MG/0.4 ML SYRINGE SQ SCH (02:46)
[2020-08-10 02:58] LABS: BUN/Creatinine Ratio 24 (6-26); Blood Urea Nitrogen 18 mg/dL (6-20); Calcium 8.7 mg/dL (8.6-10.3); Carbon Dioxide 22 mEq/L (23-29); Chloride 110 mEq/L (98-107); Glucose 93 mg/dL (70-105); Osmolality,Calculated 290 (280-300); Potassium 4.8 mEq/L (3.5-5.1); Sodium 139 mEq/L (136-145); eGFR For African Americans > 60 (> 60); eGFR For Non-African Americans > 60 (> 60)
[2020-08-10] MEDS: cloNIDine HCL 0.1 MG TABLET PO SCH ×2 (08:38→21:07)
[2020-08-10] MEDS: Vancomycin 1,250 MG/262.5 ML IV.SOLN IVPB SCH (19:18)
[2020-08-10] MEDS: QUEtiapine Fumarate 25 MG TABLET PO PRN (21:10)
[2020-08-11] MEDS: Vancomycin 1,250 MG/262.5 ML IV.SOLN IVPB SCH ×3 (03:38→21:10)
[2020-08-11] MEDS: Ketorolac 15 MG/ML VIAL IVP PRN ×2 (03:39→11:11)
[2020-08-11] MEDS: *HR* Enoxaparin 40 MG/0.4 ML SYRINGE SQ SCH (04:04)
[2020-08-11 05:41] LABS: Hematocrit 29.5 % (37.5-50.1); Mean Corpuscular HGB Conc 30.5 g/dL (31.6-35.5); Mean Corpuscular Hemoglobin 26.5 pg (28.0-33.3); Mean Corpuscular Volume 86.8 fL (83.0-100.0); Mean Platelet Volume 9.4 fL (9.4-12.4); Platelet Count 287 K/mcL (140-400); Red Cell Distribution Width 15.5 % (11.5-14.5); White Blood Count 4.7 K/mcL (4.3-11.1)
[2020-08-11 06:32] LABS: BUN/Creatinine Ratio 30 (6-26); Blood Urea Nitrogen 19 mg/dL (6-20); Calcium 8.2 mg/dL (8.6-10.3); Carbon Dioxide 21 mEq/L (23-29); Chloride 107 mEq/L (98-107); Glucose 109 mg/dL (70-105); Osmolality,Calculated 283 (280-300); Potassium 4.8 mEq/L (3.5-5.1); Sodium 135 mEq/L (136-145); eGFR For African Americans > 60 (> 60); eGFR For Non-African Americans > 60 (> 60)
[2020-08-11] MEDS: cloNIDine HCL 0.1 MG TABLET PO SCH ×2 (07:35→21:06)
[2020-08-11] MEDS: Ketorolac 30 MG/ML VIAL IVP PRN (16:54)
[2020-08-11] MEDS: traZODone 50 MG TABLET PO SCH (21:06)
[2020-08-11] MEDS: Melatonin 3 MG TABLET PO SCH (21:06)
[2020-08-11] MEDS: QUEtiapine Fumarate 25 MG TABLET PO PRN (21:10)
[2020-08-12] MEDS: Ketorolac 30 MG/ML VIAL IVP PRN ×4 (01:10→22:15)
[2020-08-12 01:40] LABS: BUN/Creatinine Ratio 32 (6-26); Blood Urea Nitrogen 21 mg/dL (6-20); Calcium 8.7 mg/dL (8.6-10.3); Carbon Dioxide 22 mEq/L (23-29); Chloride 109 mEq/L (98-107); Glucose 131 mg/dL (70-105); Osmolality,Calculated 293 (280-300); Potassium 4.3 mEq/L (3.5-5.1); Sodium 139 mEq/L (136-145); eGFR For African Americans > 60 (> 60); eGFR For Non-African Americans > 60 (> 60)
[2020-08-12] MEDS: Vancomycin 1,250 MG/262.5 ML IV.SOLN IVPB SCH (05:14)
[2020-08-12] MEDS: *HR* Enoxaparin 40 MG/0.4 ML SYRINGE SQ SCH (05:20)
[2020-08-12] MEDS: cloNIDine HCL 0.1 MG TABLET PO SCH ×2 (09:04→22:15)
[2020-08-12] MEDS ORDERED: Vancomycin 1,250 MG/262.5 ML IV.SOLN IVPB SCH (13:00)
[2020-08-12] MEDS: Melatonin 3 MG TABLET PO SCH (22:14)
[2020-08-12] MEDS: traZODone 50 MG TABLET PO SCH (22:15)
[2020-08-12] MEDS: QUEtiapine Fumarate 25 MG TABLET PO PRN (22:15)
[2020-08-13] MEDS: *HR* Enoxaparin 40 MG/0.4 ML SYRINGE SQ SCH (05:40)
[2020-08-13 06:17] LABS: BUN/Creatinine Ratio 30 (6-26); Blood Urea Nitrogen 21 mg/dL (6-20); Calcium 8.7 mg/dL (8.6-10.3); Carbon Dioxide 25 mEq/L (23-29); Chloride 106 mEq/L (98-107); Glucose 102 mg/dL (70-105); Osmolality,Calculated 287 (280-300); Sodium 137 mEq/L (136-145); eGFR For African Americans > 60 (> 60); eGFR For Non-African Americans > 60 (> 60)
[2020-08-13] MEDS: cloNIDine HCL 0.1 MG TABLET PO SCH ×2 (09:09→20:46)
[2020-08-13] MEDS: Ketorolac 30 MG/ML VIAL IVP PRN (14:45)
[2020-08-13] MEDS: QUEtiapine Fumarate 25 MG TABLET PO SCH (20:46)
[2020-08-14] MEDS: *HR* Enoxaparin 40 MG/0.4 ML SYRINGE SQ SCH (05:55)
[2020-08-14] MEDS: cloNIDine HCL 0.1 MG TABLET PO SCH ×2 (08:22→20:32)
[2020-08-14 09:43] LABS: BUN/Creatinine Ratio 25 (6-26); Blood Urea Nitrogen 17 mg/dL (6-20); Calcium 8.4 mg/dL (8.6-10.3); Carbon Dioxide 23 mEq/L (23-29); Chloride 105 mEq/L (98-107); Glucose 97 mg/dL (70-105); Osmolality,Calculated 283 (280-300); Potassium 3.8 mEq/L (3.5-5.1); Sodium 136 mEq/L (136-145); eGFR For African Americans > 60 (> 60); eGFR For Non-African Americans > 60 (> 60)
[2020-08-14 10:42] LABS: Basophils # 0.1 K/mcL (0.0-0.2); Basophils % 0.9 %; Eosinophils # 0.1 K/mcL (0.0-0.6); Eosinophils % 1.2 %; Hematocrit 29.3 % (37.5-50.1); Hemoglobin 9.2 g/dL (12.9-16.9); Immature Granulocytes % 3.5 % (0-4); Lymphocytes # 1.1 K/mcL (0.6-4.6); Lymphocytes % 12.3 %; Mean Corpuscular HGB Conc 31.4 g/dL (31.6-35.5); Mean Corpuscular Volume 82.8 fL (83.0-100.0); Mean Platelet Volume 9.9 fL (9.4-12.4); Monocytes # 0.7 K/mcL (0.0-1.3); Monocytes % 8.5 %; Neutrophils # 6.3 K/mcL (1.6-8.9); Nucleated Red Blood Cells 0.6 /100 WBC (0); Platelet Count 287 K/mcL (140-400); Red Blood Count 3.54 M/mcL (4.19-5.50); Red Cell Distribution Width 15.4 % (11.5-14.5); Segmented Neutrophils % 73.6 %; White Blood Count 8.6 K/mcL (4.3-11.1)
[2020-08-14] MEDS: QUEtiapine Fumarate 25 MG TABLET PO SCH (20:32)
[2020-08-15] MEDS: *HR* Enoxaparin 40 MG/0.4 ML SYRINGE SQ SCH (05:22)
[2020-08-15] MEDS: cloNIDine HCL 0.1 MG TABLET PO SCH ×2 (07:40→20:31)
[2020-08-15] MEDS ORDERED: Lidocaine -MPF 1% 5 ML AMPUL INFILT ONE (10:18)
[2020-08-15] MEDS: QUEtiapine Fumarate 25 MG TABLET PO SCH (20:31)
[2020-08-16] MEDS: *HR* Enoxaparin 40 MG/0.4 ML SYRINGE SQ SCH (03:29)
[2020-08-16] MEDS: Acetaminophen 325 MG TABLET PO PRN (03:33)
[2020-08-16] MEDS: cloNIDine HCL 0.1 MG TABLET PO SCH ×2 (08:18→20:36)
[2020-08-16] MEDS: QUEtiapine Fumarate 25 MG TABLET PO SCH (20:37)
[2020-08-17] MEDS: *HR* Enoxaparin 40 MG/0.4 ML SYRINGE SQ SCH (05:11)
[2020-08-17] MEDS: cloNIDine HCL 0.1 MG TABLET PO SCH ×2 (09:25→21:18)
[2020-08-17 13:51] LABS: BUN/Creatinine Ratio 26 (6-26); Blood Urea Nitrogen 20 mg/dL (6-20); Calcium 8.6 mg/dL (8.6-10.3); Carbon Dioxide 25 mEq/L (23-29); Chloride 100 mEq/L (98-107); Glucose 101 mg/dL (70-105); Osmolality,Calculated 277 (280-300); Potassium 3.9 mEq/L (3.5-5.1); Sodium 132 mEq/L (136-145); eGFR For African Americans > 60 (> 60); eGFR For Non-African Americans > 60 (> 60)
[2020-08-17 13:59] LABS: Hematocrit 28.4 % (37.5-50.1); Hemoglobin 9.1 g/dL (12.9-16.9); Mean Corpuscular Hemoglobin 25.6 pg (28.0-33.3); Mean Corpuscular Volume 79.8 fL (83.0-100.0); Mean Platelet Volume 9.5 fL (9.4-12.4); Platelet Count 231 K/mcL (140-400); Red Blood Count 3.56 M/mcL (4.19-5.50); Red Cell Distribution Width 15.5 % (11.5-14.5); White Blood Count 6.7 K/mcL (4.3-11.1)
[2020-08-17] MEDS: QUEtiapine Fumarate 25 MG TABLET PO SCH (21:18)
[2020-08-18] MEDS: *HR* Enoxaparin 40 MG/0.4 ML SYRINGE SQ SCH (05:41)
[2020-08-18] MEDS: cloNIDine HCL 0.1 MG TABLET PO SCH ×2 (08:28→21:36)
[2020-08-18] MEDS: Acetaminophen 325 MG TABLET PO PRN (17:16)
[2020-08-18] MEDS: QUEtiapine Fumarate 25 MG TABLET PO SCH (21:36)
[2020-08-19] MEDS: *HR* Enoxaparin 40 MG/0.4 ML SYRINGE SQ SCH (05:17)
[2020-08-19] MEDS: cloNIDine HCL 0.1 MG TABLET PO SCH ×2 (07:34→21:48)
[2020-08-19 13:50] LABS: Basophils % 0.5 %; Eosinophils # 0.1 K/mcL (0.0-0.6); Eosinophils % 2.1 %; Hematocrit 26.4 % (37.5-50.1); Hemoglobin 8.2 g/dL (12.9-16.9); Immature Granulocytes % 0.3 % (0-4); Lymphocytes # 0.7 K/mcL (0.6-4.6); Lymphocytes % 17.5 %; Mean Corpuscular HGB Conc 31.1 g/dL (31.6-35.5); Mean Corpuscular Hemoglobin 25.4 pg (28.0-33.3); Mean Corpuscular Volume 81.7 fL (83.0-100.0); Mean Platelet Volume 10.1 fL (9.4-12.4); Monocytes # 0.4 K/mcL (0.0-1.3); Monocytes % 9.4 %; Neutrophils # 2.7 K/mcL (1.6-8.9); Platelet Count 159 K/mcL (140-400); Red Blood Count 3.23 M/mcL (4.19-5.50); Red Cell Distribution Width 15.8 % (11.5-14.5); Segmented Neutrophils % 70.2 %; White Blood Count 3.8 K/mcL (4.3-11.1)
[2020-08-19] MEDS: QUEtiapine Fumarate 25 MG TABLET PO SCH (21:48)
[2020-08-20 04:18] LABS: Hematocrit 26.6 % (37.5-50.1); Hemoglobin 8.2 g/dL (12.9-16.9); Mean Corpuscular HGB Conc 30.8 g/dL (31.6-35.5); Mean Corpuscular Hemoglobin 24.8 pg (28.0-33.3); Mean Corpuscular Volume 80.6 fL (83.0-100.0); Mean Platelet Volume 10.2 fL (9.4-12.4); Platelet Count 196 K/mcL (140-400); Red Cell Distribution Width 15.9 % (11.5-14.5); White Blood Count 4.8 K/mcL (4.3-11.1)
[2020-08-20 04:36] LABS: BUN/Creatinine Ratio 22 (6-26); Blood Urea Nitrogen 16 mg/dL (6-20); Calcium 8.3 mg/dL (8.6-10.3); Carbon Dioxide 24 mEq/L (23-29); Chloride 98 mEq/L (98-107); Glucose 111 mg/dL (70-105); Osmolality,Calculated 274 (280-300); Potassium 4.1 mEq/L (3.5-5.1); Sodium 131 mEq/L (136-145); eGFR For African Americans > 60 (> 60); eGFR For Non-African Americans > 60 (> 60)
[2020-08-20] MEDS: *HR* Enoxaparin 40 MG/0.4 ML SYRINGE SQ SCH (05:29)
[2020-08-20] MEDS: cefTRIAXone 2,000 MG in Water for inj. (sterile) 20 ML IVP SCH (08:38)
[2020-08-20] MEDS: cloNIDine HCL 0.1 MG TABLET PO SCH ×2 (08:39→21:36)
[2020-08-20] MEDS: Acetaminophen 325 MG TABLET PO PRN (19:09)
[2020-08-20] MEDS: QUEtiapine Fumarate 25 MG TABLET PO SCH (21:36)
[2020-08-21] MEDS: *HR* Enoxaparin 40 MG/0.4 ML SYRINGE SQ SCH (04:22)
[2020-08-21] MEDS: cloNIDine HCL 0.1 MG TABLET PO SCH ×2 (09:38→22:17)
[2020-08-21] MEDS: cefTRIAXone 2,000 MG in Water for inj. (sterile) 20 ML IVP SCH (09:38)
[2020-08-21] MEDS: Acetaminophen 325 MG TABLET PO PRN (12:56)
[2020-08-21 13:12] LABS: Vancomycin,Trough 11 mcg/mL (5-10)
[2020-08-21] MEDS: Nystatin SUSP 5 ML UD.LIQ PO SCH ×3 (14:03→22:15)
[2020-08-21] MEDS: Vancomycin 1,250 MG/262.5 ML IV.SOLN IVPB SCH ×2 (14:33→20:31)
[2020-08-21 14:47] LABS: % Iron Saturation 5 % (20-55); Iron 13 mcg/dL (65-175); Transferrin 204 mg/dL (203-362)
[2020-08-21 15:02] LABS: Ferritin 69 ng/mL (20-250)
[2020-08-21] MEDS: Piperacillin/Tazobactam 3.375 GM in 0.9 % Sodium Chloride Mini Bag 100 ML IVPB SCH ×2 (16:19→23:39)
[2020-08-21] MEDS: QUEtiapine Fumarate 25 MG TABLET PO SCH (22:17)
[2020-08-22] MEDS: *HR* Enoxaparin 40 MG/0.4 ML SYRINGE SQ SCH (05:09)
[2020-08-22] MEDS: Vancomycin 1,250 MG/262.5 ML IV.SOLN IVPB SCH ×3 (05:10→22:55)
[2020-08-22] MEDS: Piperacillin/Tazobactam 3.375 GM in 0.9 % Sodium Chloride Mini Bag 100 ML IVPB SCH (07:45)
[2020-08-22] MEDS: cloNIDine HCL 0.1 MG TABLET PO SCH ×2 (10:22→22:55)
[2020-08-22] MEDS: Nystatin SUSP 5 ML UD.LIQ PO SCH ×4 (10:22→22:55)
[2020-08-22] MEDS ORDERED: *HR* Alteplase (Cathflo) 2 MG VIAL IVP ONE (14:35)
[2020-08-22] MEDS: levoFLOXacin 750 MG/150 ML 750 MG/150 ML BAG IVPB SCH (15:30)
[2020-08-22] MEDS: QUEtiapine Fumarate 25 MG TABLET PO SCH (22:55)
[2020-08-23 01:02] LABS: Hematocrit 28.9 % (37.5-50.1); Hemoglobin 8.8 g/dL (12.9-16.9); Mean Corpuscular HGB Conc 30.4 g/dL (31.6-35.5); Mean Corpuscular Hemoglobin 24.6 pg (28.0-33.3); Mean Platelet Volume 11.3 fL (9.4-12.4); Platelet Count 276 K/mcL (140-400); Red Blood Count 3.57 M/mcL (4.19-5.50); White Blood Count 5.2 K/mcL (4.3-11.1)
[2020-08-23 01:21] LABS: Alanine Aminotransferase 35 Units/L (7-52); Albumin 2.8 g/dL (3.5-5.7); Albumin/Globulin Ratio 0.6 (1.1-2.2); Alkaline Phosphatase 142 Units/L (34-104); Aspartate Amino Transferase 30 Units/L (13-39); BUN/Creatinine Ratio 24 (6-26); Bilirubin,Direct 0.1 mg/dL (0.0-0.2); Bilirubin,Indirect 0.1 mg/dL (0.0-1.0); Bilirubin,Total 0.2 mg/dL (0.3-1.0); Blood Urea Nitrogen 16 mg/dL (6-20); Calcium 8.5 mg/dL (8.6-10.3); Carbon Dioxide 24 mEq/L (23-29); Chloride 103 mEq/L (98-107); Glucose 93 mg/dL (70-105); Osmolality,Calculated 279 (280-300); Potassium 4.3 mEq/L (3.5-5.1); Sodium 134 mEq/L (136-145); Total Protein 7.8 g/dL (6.4-8.9); eGFR For African Americans > 60 (> 60); eGFR For Non-African Americans > 60 (> 60)
[2020-08-23] MEDS: *HR* Enoxaparin 40 MG/0.4 ML SYRINGE SQ SCH (04:57)
[2020-08-23] MEDS: Vancomycin 1,250 MG/262.5 ML IV.SOLN IVPB SCH ×3 (04:58→22:41)
[2020-08-23] MEDS: cloNIDine HCL 0.1 MG TABLET PO SCH ×2 (08:00→22:40)
[2020-08-23] MEDS: Nystatin SUSP 5 ML UD.LIQ PO SCH ×4 (08:07→22:40)
[2020-08-23] MEDS: levoFLOXacin 750 MG/150 ML 750 MG/150 ML BAG IVPB SCH (14:37)
[2020-08-23] MEDS: QUEtiapine Fumarate 25 MG TABLET PO SCH (22:40)
[2020-08-24] MEDS: Vancomycin 1,250 MG/262.5 ML IV.SOLN IVPB SCH ×3 (04:56→21:20)
[2020-08-24] MEDS: *HR* Enoxaparin 40 MG/0.4 ML SYRINGE SQ SCH (04:56)
[2020-08-24] MEDS: Nystatin SUSP 5 ML UD.LIQ PO SCH ×4 (08:10→21:19)
[2020-08-24] MEDS: cloNIDine HCL 0.1 MG TABLET PO SCH ×2 (08:10→21:18)
[2020-08-24] MEDS: levoFLOXacin 750 MG/150 ML 750 MG/150 ML BAG IVPB SCH (15:08)
[2020-08-24] MEDS: Acetaminophen 325 MG TABLET PO PRN ×2 (15:17→21:19)
[2020-08-24] MEDS: QUEtiapine Fumarate 25 MG TABLET PO SCH (21:18)
[2020-08-25] MEDS: *HR* Enoxaparin 40 MG/0.4 ML SYRINGE SQ SCH (05:14)
[2020-08-25] MEDS: Vancomycin 1,250 MG/262.5 ML IV.SOLN IVPB SCH (06:13)
[2020-08-25] MEDS: cloNIDine HCL 0.1 MG TABLET PO SCH (07:42)
[2020-08-25] MEDS: Nystatin SUSP 5 ML UD.LIQ PO SCH ×2 (07:42→12:43)
[2020-08-25 11:24] VITALS: BP 128/77
[2020-08-25] MEDS: Acetaminophen 325 MG TABLET PO PRN (13:02)
[2020-08-25 13:40] LABS: BUN/Creatinine Ratio 22 (6-26); Blood Urea Nitrogen 14 mg/dL (6-20); C-Reactive Protein 28 mg/L (Less than 10); Calcium 8.7 mg/dL (8.6-10.3); Carbon Dioxide 24 mEq/L (23-29); Chloride 103 mEq/L (98-107); Glucose 112 mg/dL (70-105); Osmolality,Calculated 283 (280-300); Sodium 136 mEq/L (136-145); eGFR For African Americans > 60 (> 60); eGFR For Non-African Americans > 60 (> 60)
== END 2020-08-25 14:31 | disposition left against medical advice (07) | DRG 344 ==
LOC: EMEROOARM 00:30 → 3BNU 00:30 → SUATTDRO 11:36 → 3BNU 12:44 → SUATTDRO 14:37
PROVIDERS: ADMIT Internal Medicine; ATTEND Internal Medicine

== ENCOUNTER 2020-08-26 12:59 | Observation (INO) ==
[2020-08-26] MEDS ORDERED: Naloxone 0.4 MG/ML INJ IVP PRN (15:20)
[2020-08-26] MEDS ORDERED: Ondansetron ODT 4 MG TAB.RAPDIS SL PRN (15:20)
[2020-08-26] MEDS: levoFLOXacin 750 MG TABLET PO SCH (18:20)
[2020-08-26] MEDS: Vancomycin 1,250 MG/262.5 ML IV.SOLN IVPB SCH (18:20)
[2020-08-26] MEDS: Nystatin SUSP 5 ML UD.LIQ PO SCH ×2 (18:21→19:57)
[2020-08-26] MEDS: QUEtiapine Fumarate 100 MG TABLET PO SCH (19:57)
[2020-08-26 20:20] LABS: Basophils % 0.4 %; Eosinophils # 0.1 K/mcL (0.0-0.6); Eosinophils % 1.3 %; Hematocrit 29.6 % (37.5-50.1); Hemoglobin 8.9 g/dL (12.9-16.9); Immature Granulocytes % 0.6 % (0-4); Lymphocytes % 20.1 %; Mean Corpuscular HGB Conc 30.1 g/dL (31.6-35.5); Mean Corpuscular Hemoglobin 24.8 pg (28.0-33.3); Mean Corpuscular Volume 82.5 fL (83.0-100.0); Mean Platelet Volume 8.5 fL (9.4-12.4); Monocytes # 0.8 K/mcL (0.0-1.3); Monocytes % 8.2 %; Platelet Count 525 K/mcL (140-400); Red Blood Count 3.59 M/mcL (4.19-5.50); Red Cell Distribution Width 16.3 % (11.5-14.5); Segmented Neutrophils % 69.4 %; White Blood Count 10.1 K/mcL (4.3-11.1)
[2020-08-26 20:36] LABS: BUN/Creatinine Ratio 30 (6-26); Blood Urea Nitrogen 24 mg/dL (6-20); Calcium 8.7 mg/dL (8.6-10.3); Carbon Dioxide 27 mEq/L (23-29); Chloride 99 mEq/L (98-107); Glucose 102 mg/dL (70-105); Osmolality,Calculated 282 (280-300); Potassium 3.5 mEq/L (3.5-5.1); Sodium 134 mEq/L (136-145); eGFR For African Americans > 60 (> 60); eGFR For Non-African Americans > 60 (> 60)
[2020-08-27] MEDS: Vancomycin 1,250 MG/262.5 ML IV.SOLN IVPB SCH ×2 (00:30→08:26)
[2020-08-27 05:18] LABS: Hematocrit 28.6 % (37.5-50.1); Hemoglobin 8.5 g/dL (12.9-16.9); Mean Corpuscular HGB Conc 29.7 g/dL (31.6-35.5); Mean Corpuscular Hemoglobin 24.8 pg (28.0-33.3); Mean Corpuscular Volume 83.4 fL (83.0-100.0); Mean Platelet Volume 8.9 fL (9.4-12.4); Platelet Count 453 K/mcL (140-400); Red Blood Count 3.43 M/mcL (4.19-5.50); Red Cell Distribution Width 16.4 % (11.5-14.5); White Blood Count 6.3 K/mcL (4.3-11.1)
[2020-08-27 05:37] LABS: BUN/Creatinine Ratio 29 (6-26); Blood Urea Nitrogen 23 mg/dL (6-20); Calcium 8.6 mg/dL (8.6-10.3); Carbon Dioxide 26 mEq/L (23-29); Chloride 100 mEq/L (98-107); Glucose 109 mg/dL (70-105); Magnesium 2.1 mg/dL (1.6-2.6); Osmolality,Calculated 284 (280-300); Phosphorous 3.2 mg/dL (2.7-4.5); Potassium 3.5 mEq/L (3.5-5.1); Sodium 135 mEq/L (136-145); eGFR For African Americans > 60 (> 60); eGFR For Non-African Americans > 60 (> 60)
[2020-08-27] MEDS: *HR* Enoxaparin 40 MG/0.4 ML SYRINGE SQ SCH (05:56)
[2020-08-27] MEDS: levoFLOXacin 750 MG TABLET PO SCH (08:25)
[2020-08-27] MEDS: Nystatin SUSP 5 ML UD.LIQ PO SCH ×4 (09:27→20:32)
[2020-08-27] MEDS: QUEtiapine Fumarate 100 MG TABLET PO SCH (20:32)
[2020-08-28] MEDS: *HR* Enoxaparin 40 MG/0.4 ML SYRINGE SQ SCH (05:44)
[2020-08-28] MEDS: levoFLOXacin 750 MG TABLET PO SCH (09:41)
[2020-08-28] MEDS: Nystatin SUSP 5 ML UD.LIQ PO SCH ×4 (09:41→20:55)
[2020-08-28] MEDS: QUEtiapine Fumarate 100 MG TABLET PO SCH (20:55)
[2020-08-29 00:45] LABS: BUN/Creatinine Ratio 27 (6-26); Blood Urea Nitrogen 22 mg/dL (6-20); Calcium 8.4 mg/dL (8.6-10.3); Carbon Dioxide 28 mEq/L (23-29); Chloride 104 mEq/L (98-107); Glucose 119 mg/dL (70-105); Osmolality,Calculated 290 (280-300); Potassium 4.1 mEq/L (3.5-5.1); Sodium 138 mEq/L (136-145); eGFR For African Americans > 60 (> 60); eGFR For Non-African Americans > 60 (> 60)
[2020-08-29] MEDS: *HR* Enoxaparin 40 MG/0.4 ML SYRINGE SQ SCH (04:46)
[2020-08-29] MEDS: Nystatin SUSP 5 ML UD.LIQ PO SCH ×3 (09:13→17:49)
[2020-08-29] MEDS: levoFLOXacin 750 MG TABLET PO SCH (09:13)
[2020-08-29] MEDS: QUEtiapine Fumarate 100 MG TABLET PO SCH (20:25)
[2020-08-30] MEDS ORDERED: 0.9 % Sodium Chloride 1,000 ML IVC ONE (03:56)
[2020-08-30] MEDS: *HR* Enoxaparin 40 MG/0.4 ML SYRINGE SQ SCH (06:16)
[2020-08-30] MEDS: levoFLOXacin 750 MG TABLET PO SCH (08:01)
[2020-08-30] MEDS ORDERED: *HR* Heparin 5,000 UNIT/ML VIAL IVP ONE (12:40)
[2020-08-30] MEDS ORDERED: *HR* Heparin 5,000 UNIT/ML VIAL IVP PRN ×2 (12:40)
[2020-08-30] MEDS: Heparin 25,000UNIT/250ML 1/2NS 25,000 UNIT/250 ML IV.SOLN IVC SCH (13:24)
[2020-08-30 13:42] LABS: Hematocrit 30.4 % (37.5-50.1); Hemoglobin 9.2 g/dL (12.9-16.9); Mean Corpuscular HGB Conc 30.3 g/dL (31.6-35.5); Mean Corpuscular Hemoglobin 24.7 pg (28.0-33.3); Mean Corpuscular Volume 81.7 fL (83.0-100.0); Mean Platelet Volume 9.5 fL (9.4-12.4); Platelet Count 303 K/mcL (140-400); Red Blood Count 3.72 M/mcL (4.19-5.50); Red Cell Distribution Width 16.9 % (11.5-14.5)
[2020-08-30 13:45] LABS: White Blood Count 10.1 K/mcL (4.3-11.1)
[2020-08-30] MEDS: QUEtiapine Fumarate 100 MG TABLET PO SCH (20:19)
[2020-08-31] MEDS: Heparin 25,000UNIT/250ML 1/2NS 25,000 UNIT/250 ML IV.SOLN IVC SCH (04:30)
[2020-08-31] MEDS: levoFLOXacin 750 MG TABLET PO SCH (08:37)
[2020-08-31] MEDS: *HR* Enoxaparin 150 MG/ML SYRINGE SQ SCH ×2 (09:58→18:23)
[2020-08-31] MEDS: QUEtiapine Fumarate 100 MG TABLET PO SCH (20:14)
[2020-09-01] MEDS: *HR* Enoxaparin 150 MG/ML SYRINGE SQ SCH (05:09)
[2020-09-01] MEDS: *HR* Rivaroxaban 15 MG TABLET PO SCH (17:31)
[2020-09-01] MEDS: QUEtiapine Fumarate 100 MG TABLET PO SCH (21:22)
[2020-09-02] MEDS: *HR* Rivaroxaban 15 MG TABLET PO SCH ×2 (07:45→16:02)
[2020-09-02] MEDS: QUEtiapine Fumarate 100 MG TABLET PO SCH (20:16)
[2020-09-02] MEDS: Vancomycin 1,250 MG/262.5 ML IV.SOLN IVPB SCH (21:16)
[2020-09-03] MEDS: Vancomycin 1,250 MG/262.5 ML IV.SOLN IVPB SCH ×3 (05:35→20:32)
[2020-09-03] MEDS: *HR* Rivaroxaban 15 MG TABLET PO SCH ×2 (10:00→18:57)
[2020-09-03] MEDS: QUEtiapine Fumarate 100 MG TABLET PO SCH (20:26)
[2020-09-03] MEDS: Melatonin 3 MG TABLET PO PRN (20:32)
[2020-09-04] MEDS: Vancomycin 1,250 MG/262.5 ML IV.SOLN IVPB SCH ×3 (03:23→20:57)
[2020-09-04 04:09] LABS: BUN/Creatinine Ratio 29 (6-26); Blood Urea Nitrogen 20 mg/dL (6-20); Calcium 8.5 mg/dL (8.6-10.3); Carbon Dioxide 25 mEq/L (23-29); Chloride 101 mEq/L (98-107); Glucose 127 mg/dL (70-105); Osmolality,Calculated 282 (280-300); Potassium 3.5 mEq/L (3.5-5.1); Sodium 134 mEq/L (136-145); eGFR For African Americans > 60 (> 60); eGFR For Non-African Americans > 60 (> 60)
[2020-09-04] MEDS: *HR* Rivaroxaban 15 MG TABLET PO SCH ×2 (07:41→16:33)
[2020-09-04] MEDS: QUEtiapine Fumarate 100 MG TABLET PO SCH (19:52)
[2020-09-04] MEDS: Melatonin 3 MG TABLET PO PRN (20:56)
[2020-09-05] MEDS: Vancomycin 1,250 MG/262.5 ML IV.SOLN IVPB SCH ×3 (05:21→20:29)
[2020-09-05] MEDS: *HR* Rivaroxaban 15 MG TABLET PO SCH ×2 (07:33→17:14)
[2020-09-05] MEDS: QUEtiapine Fumarate 100 MG TABLET PO SCH (20:29)
[2020-09-06] MEDS: Vancomycin 1,250 MG/262.5 ML IV.SOLN IVPB SCH (03:26)
[2020-09-06 07:17] VITALS: BP 124/78
[2020-09-06] MEDS: *HR* Rivaroxaban 15 MG TABLET PO SCH (07:55)
== END 2020-09-06 12:57 | disposition home or self-care (01) ==
LOC: EMEROOARM 12:59 → 3ANU 12:59 → SUATTDRO 15:02 → 3ANU 15:54
PROVIDERS: ADMIT Internal Medicine; ATTEND Internal Medicine